=== PATIENT | male | born 1950 | race Caucasian/White ===

== ENCOUNTER 2016-09-18 08:11 | Outpatient (RCR) | payer BC ==
--- OUTSIDE RECORDS SUMMARY | 2016-09-11 10:42 | XMS REPORT | Continuity of Care Document ---
Author Author [facility] Organization [facility] Address Unknown Phone Unavailable Care Team Providers Care Management Associate Name Role Phone OLAMIDE SEVERINO MD PCP Insurance Providers Payer Name Policy Number Subscriber Name Relationship [facility] [id number] Annamaria Fajardo 20 Self / Same As Patient Advance Directives Directive Response Recorded Date/Time Advance Directives No 09/28/14 9:45am Health Care Power of Machinist Wood No 09/28/14 9:45am Resuscitation Status Full Code [...] F (97.6 - 99.5) Temperature (Calculated Celsius) 36.66395 degrees C (36.4 - 37.5) Pulse Rate (adult) 70 bpm (60 - 90) Respiratory Rate 18 bpm (12 - 24) O2 Sat by Pulse Oximetry 99 % (88 - 100) Blood Pressure 170/87 mm Hg Pain Pain Intensity 4 Height (Feet) 5 feet Height (Inches) 10 inches Height (Calculated Centimeters) 177.097984 cm Weight (Pounds) 215 pounds Weight (Calculated Kilograms) 97.826531 kilograms Calculated BMI 30.85 Results No known relevant diagnostic tests, laboratory data and/or discharge summary. Procedures No known history of procedures. Encounters Encounter Location Date/Time Registered Emergency Room Via [facility] 09/28/14 9:27am Recent Diagnosis
[2016-09-11 10:57] LABS: CALCIUM 9.7 MG/DL (8.5-10.1); CREATININE SERUM 1.32 MG/DL (0.60-1.30); POTASSIUM 5.4 MMOL/L (3.6-5.0)
[~2016-09-18 08:11] MED LIST: AMPI3VIA5 IV; ASCO500T20 PO; ASP325T PO; ATOR20TA66 PO; CHOL100011 PO; CINNAMON PO; ENAL10TA PO; ENAL20TA PO; FISH400C PO; GABA-488 PO; GABA100C PO; HYDR-1231 PO; INSU100I14 SC; INSU100I14 SQ; INSU200I4 SQ; METF1000 PO; METH1TAB59 PO; MICO90PO TOP; MULT-974 PO; OMEP40CA36 PO; SAWP1CAP PO; SODI473S7 TOP
[2016-09-18 08:38] LABS: CALCIUM 8.8 MG/DL (8.5-10.1); CREATININE SERUM 1.27 MG/DL (0.60-1.30); POTASSIUM 4.6 MMOL/L (3.6-5.0)
[2016-11-27] MEDS ORDERED: PREG75CA PO (09:42)
[2016-11-27] MEDS ORDERED: CINN500C2 PO (09:42)
[2016-11-27] MEDS ORDERED: ENAL20TA PO (09:42)
[2016-11-27] MEDS ORDERED: OMEP40CA36 PO (09:42)
[2016-11-27] MEDS ORDERED: INSU200I4 SQ (09:42)
[2016-11-27] MEDS ORDERED: DOXY100C2 PO (09:52)
[2016-11-28] MEDS ORDERED: ASPI-983 PO (08:22)
[2016-11-28] MEDS ORDERED: CLOP75TA28 PO (08:22)
== END 2016-12-10 | disposition home or self-care (01) ==
LOC: LAB 08:11
PROVIDERS: ATTEND Surgery
DX: E11.621 Type 2 diabetes mellitus with foot ulcer (principal); E11.42 Type 2 diabetes mellitus with diabetic polyneuropathy; L97.522 Non-pressure chronic ulcer of other part of left foot with fat layer exposed
CPT/HCPCS: 36415; 80048

== ENCOUNTER → 2016-10-09 | Outpatient (CLI) | payer BC ==
[~2016-10-09] MED LIST changes: +ASPI-983 PO; +CINN500C2 PO; +CLOP75TA28 PO; +DOXY100C2 PO; +PREG75CA PO
--- OUTSIDE RECORDS SUMMARY | 2016-10-09 09:47 | XMS REPORT | Continuity of Care Document ---
Author Author [facility] Organization [facility] Address Unknown Phone Unavailable Care Team Providers Care Overnight Stocker Name Role Phone OLAMIDE SEVERINO MD PCP Insurance Providers Payer Name Policy Number Subscriber Name Relationship [facility] [id number] Annamaria Fajardo 20 Self / Same As Patient Advance Directives Directive Response Recorded Date/Time Advance Directives No 09/28/14 9:45am Health Care Power of Claim Administrator No 09/28/14 9:45am Resuscitation Status Full Code [...] F (97.6 - 99.5) Temperature (Calculated Celsius) 36.60683 degrees C (36.4 - 37.5) Pulse Rate (adult) 70 bpm (60 - 90) Respiratory Rate 18 bpm (12 - 24) O2 Sat by Pulse Oximetry 99 % (88 - 100) Blood Pressure 170/87 mm Hg Pain Pain Intensity 4 Height (Feet) 5 feet Height (Inches) 10 inches Height (Calculated Centimeters) 177.886840 cm Weight (Pounds) 215 pounds Weight (Calculated Kilograms) 97.768378 kilograms Calculated BMI 30.85 Results No known relevant diagnostic tests, laboratory data and/or discharge summary. Procedures No known history of procedures. Encounters Encounter Location Date/Time Registered Emergency Room Via [facility] 09/28/14 9:27am Recent Diagnosis
--- NOTE | 2016-10-09 11:43 | Diagnostic Imaging Report ---
Three views of the left foot. INDICATION: Foot ulcer along the base of the first metatarsal. COMPARISON: 08/30/2016. FINDINGS: Again seen degenerative changes with joint space mild narrowing and osteophyte formation along the first metatarsophalangeal joint. There is also mild hallux valgus. There is no fracture, dislocation, or acute erosion identified. The plantar soft tissue ulcer along the base of the great toe is marked with no soft tissue air or overlying bony abnormality seen. IMPRESSION: Degenerative changes. Hallux valgus. Dictated by: Dictated on workstation # [id number]
== END ==
LOC: RAD 09:43
PROVIDERS: ATTEND Surgery
DX: E11.621 Type 2 diabetes mellitus with foot ulcer (principal); E11.42 Type 2 diabetes mellitus with diabetic polyneuropathy; L97.522 Non-pressure chronic ulcer of other part of left foot with fat layer exposed
CPT/HCPCS: 73630

== ENCOUNTER 2016-11-26 08:00 | Outpatient (RCR) | payer BC ==
--- OUTSIDE RECORDS SUMMARY | 2016-08-30 08:14 | XMS REPORT | Continuity of Care Document ---
Author Author [facility] Organization [facility] Address Unknown Phone Unavailable Care Team Providers Care Curb Attendant Name Role Phone OLAMIDE SEVERINO MD PCP Insurance Providers Payer Name Policy Number Subscriber Name Relationship [facility] [id number] Annamaria Fajardo 20 Self / Same As Patient Advance Directives Directive Response Recorded Date/Time Advance Directives No 09/28/14 9:45am Health Care Power of Cycle Manager No 09/28/14 9:45am Resuscitation Status Full Code 09/28/14 9:45am Problems Medical Problems Problem Onset Date Status Thigh contusion Unknown Active Crush injury Unknown Active Wrist contusion Unknown Active Medications Medication Dose Route Sig Days/Qty Instructions Order Date Discontinued Date Status Aspirin 325 Mg PO DAILY 04/20/14 Active Fish Oil/Borage/Flax/Om3,6,9#1 1 Cap PO DAILY 04/20/14 Active Sawpalmtofrtxt/Zinc Picolinate 1 Cap PO DAILY 04/20/14 09/28/14 Discontinued [Cinnamon 100MG] 100 Mg PO DAILY 04/20/14 Active Cholecalciferol 1,000 Unit PO DAILY 04/20/14 Active Ascorbic Acid 500 Mg PO DAILY 04/20/14 Active Multivitamin 1 Tab PO DAILY 04/20/14 Active Methyl-B12/L-Mefolate/B6 Phos 1 Tab PO DAILY 04/20/14 Active Enalapril Maleate 10 Mg PO DAILY 04/20/14 Active Metformin Hcl 1,000 Mg PO TWICE A DAY 04/20/14 Active Atorvastatin Calcium 20 Mg PO DAILY 04/20/14 Active Omeprazole 40 Mg PO MON, WED, FRI, SUN 04/20/14 Active Insulin Aspart 14 Units SC DAILY 04/20/14 Active Insulin Aspart 20 Units SQ DAILY @ 1800 04/20/14 Active Hydrocodone Bit/Acetaminophen 1-2 Tab PO EVERY 6 HOURS PRN PAIN 20 Qty 09/28/14 Active Social History Social History Problem Response Recorded Date/Time Alcohol Use Denies Use 09/28/2014 9:45am Recreational Drug Use No 09/28/2014 9:45am Recent Foreign Travel No 04/20/2014 11:06am Recent Infectious Disease Exposure No 04/20/2014 11:06am Hospitalization with Isolation Denies 04/22/2014 11:17am Sexually Transmitted Disease No 09/28/2014 9:45am HIV/AIDS No 09/28/2014 9:45am Smoking Status Former Smoker 09/28/2014 9:45am Query Response Start Date Stop Date Smoking Status Former Smoker Hospital Discharge Instructions No hospital discharge instructions. Plan of Care No plan of care. Functional Status No functional status results. Allergies, Adverse Reactions, Alerts Allergen Type Severity Reaction Status Last Updated No Known Drug Allergies Active 04/20/14 Immunizations Name Given Type Date of Pneumonia Vaccine 04/21/14 Historical Hepatitis A No Historical Hepatitis B No Historical Tetanus Booster (TDap) Less than 5yrs Historical Vital Signs Acute Vital Signs Vital Response Date/Time Temperature (Fahrenheit) 97.6 degrees F (97.6 - 99.5) Temperature (Calculated Celsius) 36.61697 degrees C (36.4 - 37.5) Pulse Rate (adult) 70 bpm (60 - 90) Respiratory Rate 18 bpm (12 - 24) O2 Sat by Pulse Oximetry 99 % (88 - 100) Blood Pressure 170/87 mm Hg Pain Pain Intensity 4 Height (Feet) 5 feet Height (Inches) 10 inches Height (Calculated Centimeters) 177.437438 cm Weight (Pounds) 215 pounds Weight (Calculated Kilograms) 97.408471 kilograms Calculated BMI 30.85 Results No known relevant diagnostic tests, laboratory data and/or discharge summary. Procedures No known history of procedures. Encounters Encounter Location Date/Time Registered Emergency Room Via [facility] 09/28/14 9:27am Recent Diagnosis
[~2016-11-26 08:00] MED LIST changes: -ASPI-983 PO; -CINN500C2 PO; -CLOP75TA28 PO; -DOXY100C2 PO; -PREG75CA PO
[2016-11-27] MEDS ORDERED: OMEP40CA36 PO (09:42)
[2016-11-27] MEDS ORDERED: INSU200I4 SQ (09:42)
[2016-11-27] MEDS ORDERED: PREG75CA PO (09:42)
[2016-11-27] MEDS ORDERED: CINN500C2 PO (09:42)
[2016-11-27] MEDS ORDERED: ENAL20TA PO (09:42)
[2016-11-27] MEDS ORDERED: DOXY100C2 PO (09:52)
[2016-11-28] MEDS ORDERED: CLOP75TA28 PO (08:22)
[2016-11-28] MEDS ORDERED: ASPI-983 PO (08:22)
== END 2016-11-28 | disposition home or self-care (01) ==
LOC: WOUNDCARE 08:00
PROVIDERS: ATTEND Surgery
DX: E11.621 Type 2 diabetes mellitus with foot ulcer (principal); E11.42 Type 2 diabetes mellitus with diabetic polyneuropathy; L97.524 Non-pressure chronic ulcer of other part of left foot with necrosis of bone
CPT/HCPCS: 11042; 11044; 15275; 29445; 82962; 87070; 87075; 87077; 87186; 87205; 99183

== ENCOUNTER 2016-11-27 07:33 | Day surgery (SDC) | payer BC ==
[2016-11-27] VITALS (7 sets, daily range): BP systolic 109–156; BP diastolic 63–84
[~2016-11-27] VITALS: Ht 177.8 cm; Wt 99.8 kg
--- OUTSIDE RECORDS SUMMARY | 2016-11-27 07:36 | XMS REPORT | Continuity of Care Document ---
Author Author [facility] Organization [facility] Address Unknown Phone Unavailable Care Team Providers Care Wheel Adjuster Name Role Phone OLAMIDE SEVERINO MD PCP Insurance Providers Payer Name Policy Number Subscriber Name Relationship [facility] [id number] Annamaria Fajardo 20 Self / Same As Patient Advance Directives Directive Response Recorded Date/Time Advance Directives No 09/28/14 9:45am Health Care Power of Drier And Pulverizer Tender No 09/28/14 9:45am Resuscitation Status Full Code [...] F (97.6 - 99.5) Temperature (Calculated Celsius) 36.95664 degrees C (36.4 - 37.5) Pulse Rate (adult) 70 bpm (60 - 90) Respiratory Rate 18 bpm (12 - 24) O2 Sat by Pulse Oximetry 99 % (88 - 100) Blood Pressure 170/87 mm Hg Pain Pain Intensity 4 Height (Feet) 5 feet Height (Inches) 10 inches Height (Calculated Centimeters) 177.924979 cm Weight (Pounds) 215 pounds Weight (Calculated Kilograms) 97.794689 kilograms Calculated BMI 30.85 Results No known relevant diagnostic tests, laboratory data and/or discharge summary. Procedures No known history of procedures. Encounters Encounter Location Date/Time Registered Emergency Room Via [facility] 09/28/14 9:27am Recent Diagnosis
--- OUTSIDE RECORDS SUMMARY | 2016-11-27 07:37 | XMS REPORT | Continuity of Care Document ---
Author Author [facility] Organization [facility] Address Unknown Phone Unavailable Care Team Providers Care Senior Software Analyst Name Role Phone OLAMIDE SEVERINO MD PCP Insurance Providers Payer Name Policy Number Subscriber Name Relationship [facility] [id number] Annamaria Fajardo 20 Self / Same As Patient Advance Directives Directive Response Recorded Date/Time Advance Directives No 09/28/14 9:45am Health Care Power of Sports Attorney No 09/28/14 9:45am Resuscitation Status Full Code [...] F (97.6 - 99.5) Temperature (Calculated Celsius) 36.11096 degrees C (36.4 - 37.5) Pulse Rate (adult) 70 bpm (60 - 90) Respiratory Rate 18 bpm (12 - 24) O2 Sat by Pulse Oximetry 99 % (88 - 100) Blood Pressure 170/87 mm Hg Pain Pain Intensity 4 Height (Feet) 5 feet Height (Inches) 10 inches Height (Calculated Centimeters) 177.962124 cm Weight (Pounds) 215 pounds Weight (Calculated Kilograms) 97.383830 kilograms Calculated BMI 30.85 Results No known relevant diagnostic tests, laboratory data and/or discharge summary. Procedures No known history of procedures. Encounters Encounter Location Date/Time Registered Emergency Room Via [facility] 09/28/14 9:27am Recent Diagnosis
[2016-11-27] MEDS ORDERED: LIDOCAINE 1% INJ 20 ML (XYLOCAINE) VIAL ONE (07:42)
[2016-11-27] MEDS ORDERED: HEParin (CATH LAB) 2,000 ML IV ONE (07:42)
[2016-11-27] MEDS ORDERED: NS IV 1000 ML 1,000 ML ONE (07:42)
[2016-11-27] MEDS ORDERED: NS IV 1000 ML 1,000 ML IV SCH ×2 (07:57→08:15)
--- NOTE | 2016-11-27 08:25 | Diagnostic Imaging Report ---
Portable upright radiograph of the chest. INDICATION: Open wound in the leg. Hypertension. Peripheral artery disease. FINDINGS: The lungs are clear. The heart size is normal. No effusion or pneumothorax. Mediastinum and amador appear unremarkable. Cervical spine fusion hardware is seen. IMPRESSION: No acute process. Dictated by: Dictated on workstation # [id number]
[2016-11-27 08:28] LABS: MEAN PLATELET VOLUME 10.3 FL (7.4-10.4); RED BLOOD COUNT 4.49 10^6/uL (4.35-5.85); RED CELL DISTRIBUTION WIDTH 14.1 % (10.0-14.5); WHITE BLOOD COUNT 12.3 10^3/uL (4.3-11.0)
[2016-11-27 08:41] LABS: PROTHROMBIN TIME PATIENT 13.1 SEC (12.2-14.7)
[2016-11-27 08:54] LABS: ALBUMIN 3.7 G/DL (3.2-4.5); BILIRUBIN,TOTAL 0.3 MG/DL (0.1-1.0); CALCIUM 9.4 MG/DL (8.5-10.1); CREATININE SERUM 1.26 MG/DL (0.60-1.30); POTASSIUM 4.8 MMOL/L (3.6-5.0); TOTAL PROTEIN 7.2 G/DL (6.4-8.2)
[2016-11-27] MEDS ORDERED: INSU200I4 SQ (09:42)
[2016-11-27] MEDS ORDERED: PREG75CA PO (09:42)
[2016-11-27] MEDS ORDERED: ENAL20TA PO (09:42)
[2016-11-27] MEDS ORDERED: OMEP40CA36 PO (09:42)
[2016-11-27] MEDS ORDERED: CINN500C2 PO (09:42)
[2016-11-27] MEDS ORDERED: DOXY100C2 PO (09:52)
--- NOTE | 2016-11-27 10:46 | Cardiac Procedure Note-CS/ASA ---
Pre-Procedure Note Pre-Op Procedure Note H&P Reviewed The H&P was reviewed, patient examined and no changes noted. Date H&P Reviewed: Nov 27, 2016 Time H&P Reviewed: 10:46 Conscious Sedation Pre-Proced Time Reviewed: 10:46 ASA Class: 3 Airway Mallampati Classification: ([place] appropriate class) I. II. III, IV Lungs Heart ASA score ASA 1: a normal healthy patient ASA 2: a patient with a mild systemic disease (mid diabetes, controlled hypertension, obesity x ASA 3: a patient with a severe systemic disease that limits activity (angina , COPD, prior Myocardial infarction) ASA 4: a patient with an incapacitating disease that is a constant threat to life (CHF, renal failure) ASA 5: a moribund patient not expected to survive 24 hrs. (ruptured aneurysm) ASA 6: a declared brain patient whose organs are being harvested. For emergent operations, add the letter E after the classification Grade 3 Sedation Plan: Analgesia, Amnesia, Plan communicated to team members, Discussed options with patient/fam, Discussed risks with patient/fam Note The patient is an appropriate candidate to undergo the planned procedure, sedation, and anesthesia. The patient immediately re-assessed prior to indication. BRITTNEY FERRERA MD Nov 27, 2016 10:46
[2016-11-27] MEDS ORDERED: MIDAZOLAM 5 MG/5 ML (VERSED) VIAL ONE (10:48)
[2016-11-27] MEDS ORDERED: fentaNYL INJECTION 100 MCG/2 ML AMP ONE (10:48)
[2016-11-27] MEDS ORDERED: HEParin 1000 UNIT/ML (10ML VIAL) FOR BOLUS ONE (11:14)
[2016-11-27] MEDS ORDERED: NITROGLYCERIN DRIP 25 MG/D5W 250 ML IV ONE (11:39)
[2016-11-27] MEDS ORDERED: ASPIRIN 325 MG (5 GR) TABLET ONE (12:11)
[2016-11-27] MEDS ORDERED: CLOPIDOGREL 300 MG (PLAVIX) TABLET PO ONE (12:11)
[2016-11-27] MEDS ORDERED: PATIENT MAY USE OWN MEDS, ALL PO SCH (12:15)
[2016-11-27] MEDS: NS IV 1000 ML 1,000 ML IV SCH ×2 (12:30→23:18)
[2016-11-27] MEDS ORDERED: DOXYCYCLINE 100 MG (VIBRAMYCIN) TABLET PO SCH (21:00)
[2016-11-27] MEDS ORDERED: PREGABALIN 75 MG (LYRICA) CAP PO SCH (21:00)
[2016-11-27] MEDS ORDERED: NON-FORMULARY MEDICATION 1 EA EA (Doxycycline Hyclate 100 MG) PO SCH (21:00)
[2016-11-28] VITALS: BP 148/76
[2016-11-28 04:16] VITALS: BP 164/80
[2016-11-28 04:43] LABS: MEAN PLATELET VOLUME 10.7 FL (7.4-10.4); RED BLOOD COUNT 4.36 10^6/uL (4.35-5.85); RED CELL DISTRIBUTION WIDTH 14.3 % (10.0-14.5); WHITE BLOOD COUNT 8.6 10^3/uL (4.3-11.0)
[2016-11-28 05:14] LABS: ANION GAP 9 MMOL/L (5-14); BLOOD UREA NITROGEN 22 MG/DL (7-18); BUN/CREATININE RATIO 19; CALCIUM 9.3 MG/DL (8.5-10.1); CARBON DIOXIDE 22 MMOL/L (21-32); CHLORIDE 109 MMOL/L (98-107); CREATININE SERUM 1.17 MG/DL (0.60-1.30); GFR ESTIMATED > 60; GLUCOSE 142 MG/DL (70-105); POTASSIUM 4.6 MMOL/L (3.6-5.0); SODIUM 140 MMOL/L (135-145)
[2016-11-28 05:42] VITALS: BP 134/52
[2016-11-28] MEDS ORDERED: PANTOPRAZOLE 40 MG (PROTONIX) TAB PO SCH (07:00)
[2016-11-28 08:00] VITALS: BP 144/75
--- NOTE | 2016-11-28 08:00 | DISCHARGE SUMMARY ---
PROCEDURE PHYSICIAN: BRITTNEY FERRERA DATE OF PROCEDURE: 11/27/2016 PERIPHERAL ANGIOGRAM REFERRING PHYSICIAN: Dr. Lane BRIEF HISTORY: Mr. Fajardo is a 66-year-old gentleman with nonhealing foot ulcer on the left side. Abnormal SHIRLEY, had difference of 20 mmHg blood pressure in the arms. We were suspecting carotid stenosis at the origin of the carotid artery, in addition to peripheral arterial disease. PROCEDURE NOTE: After explaining the procedure to the patient, all pros and cons were explained. All questions were answered. The patient signed a consent, then he was placed on the cardiac catheterization laboratory. The right groin was prepped in a sterile fashion. Local anesthesia applied. A 6-Micronesian sheath was placed in the right femoral artery. Runoff of the right lower extremity was done through the sheath, then I advanced a pigtail catheter to the abdominal aorta. Abdominal aortogram was done. The patient was given 3000 units of heparin, then followed by another 3000 units of heparin. The Storq wire was advanced in the left lower extremity. Then straight catheter was placed in the common femoral artery, runoff was done. Then I advanced a catheter to the right superficial femoral artery and 3 separate angiograms were done to the trifurcation and popliteal artery, then to the mid leg then to the foot. At that point, patient appeared to have severe stenosis at multiple segment of the anterior tibial artery. I gave additional 3000 units of heparin. Then I advanced a Command wire 300 cm down in the anterior tibial artery. I proceeded with Colwell balloon 2.5 x 100, inflated to its nominal size, then I used Colwell larger balloon 3.0 x 100 inflated up to 10 atmosphere at multiple inflations, then angiogram was done. I exchanged the catheter. I used mini support catheter, advanced it to the anterior tibial artery, placed in the anterior tibial artery. The wire was removed. I gave nitroglycerin in the artery. Then I proceeded with angiogram, through direct injection in the anterior tibial artery. The catheter was removed. Runoff of the left lower extremity was done through the sheath. I used a 55 cm 6-Micronesian sheath which showed excellent flow. There was a small dissection at the mid anterior tibial artery. The sheath was pulled to the abdominal aorta, then I exchanged into short 6-Micronesian sheath, advanced the pigtail back to the aortic arch and aortic arch angiogram was done. At the end of the procedure, sheath was removed. Mynx device deployed. Hemostasis achieved. Total contrast used is 116 mL. FINDINGS: 1. AORTIC ARCH ANGIOGRAM: Aortic arch angiogram was done in the left anterior oblique position showing no dissection or aneurysm. Origin of the innominate artery, carotid artery and left subclavian appeared normal. 2. RIGHT LOWER EXTREMITY RUNOFF: Right lower extremity runoff was done through the sheath showing slow flow down to the trifurcation. Small vessel disease below the trifurcation. 3. LEFT LOWER EXTREMITY RUNOFF: Left lower extremity runoff done at multiple injections showing moderate disease in the posterior tibial artery, severe disease with subtotal occlusion at 2 segments of the anterior tibial artery. Successful balloon angioplasty using Colwell 2.5 x 100 then 3.0 x 100 with excellent results. Small dissection in the mid anterior tibial artery not flow limiting. Mild disease in the left SFA. 4. ABDOMINAL AORTOGRAM: Abdominal aortogram was done in AP position showing normal abdominal aorta with normal bifurcation. CONCLUSION: 1. Severe stenosis at 2 segments of the anterior tibial artery of the left lower extremity. Successful balloon angioplasty with excellent results with excellent flow down to the foot. 2. Moderate disease in the posterior tibial artery on the left side. Mild disease in the SFA. 3. Mild disease in the right SFA with small vessel disease below the knee. 4. Normal aortic arch and great neck vessels. 5. Normal abdominal aorta. DISCUSSION AND RECOMMENDATION: I will maximize medical therapy. Continue to monitor at this time. FINAL DIAGNOSES: 1. Nonhealing foot ulcer. 2. Hypertension. 3. Peripheral arterial disease. 4. Hyperlipidemia. 5. Diabetes mellitus. Job ID: [id number] Dictated Date: 11/27/2016 12:30:23 Ore Miner Blasting Date: 11/28/2016 07:58:07/noel
[2016-11-28] MEDS: NS IV 1000 ML 1,000 ML IV SCH (08:09)
[2016-11-28] MEDS ORDERED: CLOP75TA28 PO (08:22)
[2016-11-28] MEDS ORDERED: ASPI-983 PO (08:22)
--- NOTE | 2016-11-28 08:23 | Discharge Inst-Post CATH ---
Discharge Inst-CATH Post Cardiac Cath D/C Inst Follow Up/Plan Hold metformin for [address] Ortiz's office in 2-4 weeks CARDIAC CATH DISCHARGE INSTRUCTIONS *Hold Metformin for 48 hours post heart cath. ACTIVITY * Go Home directly and rest. * Limit activity of the leg (or wrist if it was used) for 7 days including aerobics, swimming, jogging, bicycling, etc. * Restrict stair-climbing for 7 days if possible, if not, climb up with your non -cath leg, then bring together on the same step. * Avoid lifting, pushing, pulling or excessive movement of the affected extremity for 7 days. * Customary sexual activity may be resumed after 2 days-use caution not to use a position that strains or causes pain to the affected extremity. * No driving for 24 hours. * NO SMOKING. * Avoid straining for bowel movements for 7 days. * Gentle walking on level ground is allowed. * Returning to work will depend on the type of procedure and the results. Your doctor will discuss this with you. CALL YOUR DOCTOR FOR ANY OF THE FOLLOWING: *If bleeding from the puncture site occurs- Apply gentle pressure to site with clean cloth and call your doctor or EMS. * If a knot or lump forms under the skin, increases in size, or causes pain. * If bruising appears to be worsening or moving further down your leg instead of disappearing. * Temperature above 101 F. CARE OF YOUR GROIN INCISION; * Bruising or purple discoloration of the skin near the puncture site is common. * You may shower only, no bathtub bathing for 5 days. Be careful to avoid slipping as your leg may feel stiff. * If a closure device was used on your femoral artery, please see the attached guide regarding care of the device and your leg. * REMOVE the dressing from your groin the next day after your procedure in the shower. CARE OF YOUR WRIST INCISION; * Bruising or purple discoloration of the skin near the puncture site is common. * You may shower. * DO NOT submerge wrist. * Remove dressing in 24 hours. BRITTNEY ORTIZ MD Nov 28, 2016 08:23
--- NOTE | 2016-11-28 08:24 | Cardiology Progress Note ---
Subjective Subjective/Events-last exam patient is laying down in bed, groin is healing well. Review of Systems General: No Chills, No Night Sweats, No Fatigue, No Malaise, No Appetite, No Other HEENT: No Head Aches, No Visual Changes, No Eye Pain, No Ear Pain, No Dysphasia , No Sinus Congestion, No Post Nasal Drip, No Sore Throat, No Other Pulmonary: No Dyspnea, No Cough, No Pleuritic Chest Pain, No Other Cardiovascular: No: Chest Pain, Edema, Lt Headedness, Orthopnea, Other, Palpitations, Paroxysmal Noc. Dyspnea Objective-Cardiology Exam Last Set of Vital Signs Vital Signs 11/28/16 11/28/16 05:42 07:00 Temp 97.2 Pulse 61 Resp 16 B/P 134/52 Pulse Ox 96 O2 Delivery Room Air Capillary Refill : Less Than 3 Seconds General: Alert, Oriented X3, Cooperative HEENT: Atraumatic, PERRLA Neck: Supple, No JVD, No Thyromegaly Lungs: Clear to Auscultation, Normal Air Movement Heart: Regular Rate, Normal S1, Normal S2, No Murmurs Abdomen: Normal Bowel Sounds, Soft, No Tenderness, No Hepatosplenomegaly, No Masses Extremities: No Clubbing, No Cyanosis, No Edema, Normal Pulses, No Tenderness/ Swelling Skin: No Rashes, No Breakdown, No Significant Lesion Neuro: Normal Gait, Normal Speech, Strength at 5/5 X4 Ext, Normal Tone, Sensation Intact Psych/Mental Status: Mental Status NL, Mood NL Results Lab Laboratory Tests 11/28/16 03:33 A/P-Cardiology Admission Diagnosis nonhealing foot ulcer Peripheral arterial disease Hypertension Hyperlipidemia Diabetes mellitus Assessment/Plan peripheral arterial disease, nonhealing foot ulcer, status post angioplasty to the anterior tibial artery with excellent results. Started on aspirin and Plavix. Continue to monitor. Hypertension, continue current medication monitor Hyperlipidemia, continue to monitor lipids, continue current medication Diabetes mellitus, educated on diabetic control. Obesity. BRITTNEY FERRERA MD Nov 28, 2016 08:24
[2016-11-28] MEDS ORDERED: ATORVASTATIN 20 MG (LIPITOR) TABLET PO SCH (09:00)
[2016-11-28] MEDS ORDERED: CLOPIDOGREL 75 MG (PLAVIX) TABLET PO SCH (09:00)
[2016-11-28] MEDS ORDERED: ENALAPRIL 10 MG (VASOTEC) TAB PO SCH (09:00)
[2016-11-28] MEDS ORDERED: NON-FORMULARY MEDICATION 1 EA EA (Insulin Degludec (Tresiba Flextouch U-200) 50 UNITS) SQ SCH (09:00)
[2016-11-28] MEDS ORDERED: ASPIRIN E.C. 81 MG (ECOTRIN) TAB PO SCH (09:00)
[2016-11-28] MEDS ORDERED: NON-FORMULARY MEDICATION 1 EA EA (Omeprazole 40 MG) PO SCH (09:00)
[2016-11-28] MEDS ORDERED: NON-FORMULARY MEDICATION 1 EA EA (Enalapril Maleate 20 MG) PO SCH (09:00)
[2016-11-28 09:55] VITALS: BP 144/75
== END 2016-11-28 10:05 | disposition home or self-care (01) ==
LOC: CATH 07:33 → ICU 12:30 → CATH 11-28 10:05
PROVIDERS: ATTEND Internal Medicine Cardiovascular Disease
DX: L97.529 Non-pressure chronic ulcer of other part of left foot with unspecified severity (principal); E11.621 Type 2 diabetes mellitus with foot ulcer; I10 Essential (primary) hypertension; E78.5 Hyperlipidemia, unspecified; K21.9 Gastro-esophageal reflux disease without esophagitis; E66.9 Obesity, unspecified; Z79.899 Other long term (current) drug therapy; Z79.84 Long term (current) use of oral hypoglycemic drugs; Z68.31 Body mass index [BMI] 31.0-31.9, adult
CPT/HCPCS: 36221; 36247; 36415; 37228; 71010; 75625; 75716; 75774; 80048; 80053; 80061; 82962; 85027; 85347; 85610; 85730; 87081

== ENCOUNTER → 2016-12-24 | Outpatient (CLI) | payer BC ==
[~2016-12-24] MED LIST changes: +ASPI-983 PO; +CINN500C2 PO; +CLOP75TA28 PO; +DOXY100C2 PO; +PREG75CA PO
== END ==
LOC: LAB 06:58
PROVIDERS: ATTEND Surgery
DX: E11.621 Type 2 diabetes mellitus with foot ulcer (principal); E11.42 Type 2 diabetes mellitus with diabetic polyneuropathy; L97.522 Non-pressure chronic ulcer of other part of left foot with fat layer exposed
CPT/HCPCS: 36415; 83036

== ENCOUNTER 2017-01-15 12:39 | Outpatient (RCR) | payer BC ==
--- OUTSIDE RECORDS SUMMARY | 2016-11-29 08:05 | XMS REPORT | Continuity of Care Document ---
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 Name Role Phone OLAMIDE SEVERINO MD PCP Insurance Providers Payer Name Policy Number Subscriber Name Relationship [facility] [id number] Annamaria Fajardo 20 Self / Same As Patient Advance Directives Directive Response Recorded Date/Time Advance Directives No 11/27/16 8:24am Health Care Power of Circus Agent No 11/27/16 8:24am Resuscitation Status Full Code 11/27/16 8:24am Problems Active Problems Medical Problem Onset Date Status Cellulitis Unknown Acute Crush injury Unknown Acute Diabetic ulcer of left foot Unknown Acute Thigh contusion Unknown Acute Thigh contusion Unknown Acute Wrist contusion Unknown Acute Medications Current Home Medications Medication Dose Units Route Directions Days/Qty Instructions Start Date Ascorbic Acid 500 Mg 500 Mg Oral Daily 04/20/14 Atorvastatin Calcium 20 Mg 20 Mg Oral Daily 04/20/14 Cinnamon Bark 500 Mg 500 Mg Oral Daily 11/27/16 Enalapril Maleate 20 Mg 20 Mg Oral Daily 11/27/16 Insulin Degludec 200 Unit/1 Ml 50 Units Sub-Q Daily 11/27/16 Omeprazole 40 Mg 40 Mg Oral Daily 11/27/16 Pregabalin 75 Mg 75 Mg Oral Bedtime 11/27/16 Doxycycline Hyclate 100 Mg 100 Mg Oral Twice A Day 14 Days FILLED #28 FOR A 14 DAY THERAPY 11/27/16 Clopidogrel Bisulfate 75 Mg 75 Mg Oral Daily 30 11/28/16 Aspirin 81 Mg 81 Mg Oral Daily 100 11/28/16 Past Home Medications Medication Directions Ordered Status Aspirin 325 Mg Tab, 325 Mg Oral Daily 04/20/14 Discontinued Fish Oil/Borage/Flax/Om3,6,9#1 1 Each Capsule, 1 Cap Oral Daily 04/20/14 Discontinued Sawpalmtofrtxt/Zinc Picolinate 1 Each Capsule, 1 Cap Oral Daily 04/20/14 Discontinued [Cinnamon 100MG] , 100 Mg Oral Daily 04/20/14 Discontinued Cholecalciferol 1,000 Unit Capsule, 1000 Unit Oral Daily 04/20/14 Discontinued Multivitamin 1 Each Tablet, 1 Tab Oral Daily 04/20/14 Discontinued Methyl-B12/L-Mefolate/B6 Phos 1 Each Tablet, 1 Tab Oral Daily 04/20/14 Discontinued Enalapril Maleate 10 Mg Tablet, 10 Mg Oral Daily 04/20/14 Discontinued Metformin Hcl 1,000 Mg Tablet, 1000 Mg Oral Twice A Day 04/20/14 Discontinued Omeprazole 40 Mg Capsule., 40 Mg Oral Mon, Fri, Fri, Sun 04/20/14 Discontinued Insulin Aspart 100 Unit/1 Ml Insuln.pen, 14 Units Subcutaneously Daily Discontinued Insulin Aspart 100 Unit/1 Ml Insuln.pen, 20 Units Sub-Q Daily @ 1800 Discontinued Hydrocodone Bit/Acetaminophen 1 Tab Tablet, 1-2 Tab Oral Every 6 Hours as needed for Pain 09/28/14 Discontinued Omeprazole 40 Mg Capsule.dr, 40 Mg Oral Daily 01/14/16 Discontinued Insulin Degludec 200 Unit/1 Ml Insuln.pen, 50 Unit Sub-Q Daily 01/14/16 Discontinued Gabapentin 100 Mg Capsule, 100 Mg Oral Twice A Day 01/14/16 Discontinued Enalapril Maleate 20 Mg Tablet, 20 Mg Oral Daily 01/14/16 Discontinued Gabapentin 300 Mg Capsule, 300 Mg Oral Twice A Day 01/15/16 Discontinued Ampicillin Sodium/Sulbactam Na 3 Gm Vial, 3 Gm Intraven Every 8HRS 01/18/16 Discontinued Miconazole Nitrate 90 Gm Powder, 0 Gm Topically Daily And Prn 01/18/16 Discontinued Social History Social History Problem Response Recorded Date/Time Alcohol Use Denies Use 01/14/2016 10:50am Recreational Drug Use No 01/14/2016 10:50am Recent Foreign Travel No 04/20/2014 11:06am Recent Infectious Disease Exposure No 04/20/2014 11:06am Hospitalization with Isolation Denies 04/22/2014 11:17am Sexually Transmitted Disease No 01/14/2016 10:50am HIV/AIDS No 01/14/2016 10:50am Smoking Status Never a Smoker 11/27/2016 8:27am Do you dip or chew tobacco? No 01/14/2016 7:25am Sexually Transmitted Disease No 01/14/2016 10:50am Hospitalization with Isolation Denies 04/22/2014 11:17am Query Response Start Date Stop Date Smoking Status Never a Smoker Hospital Discharge Instructions Patient Instructions Physician Instructions Follow Up/Plan Hold metformin for [address] Ortiz's office in 2-4 weeks CARDIAC CATH DISCHARGE INSTRUCTIONS *Hold Metformin for 48 hours post heart cath. ACTIVITY * Go Home directly and rest. * Limit activity of the leg (or wrist if it was used) for 7 days including aerobics, swimming, jogging, bicycling, etc. * Restrict stair-climbing for 7 days if possible, if not, climb up with your non-cath leg, then bring together on the same step. * Avoid lifting, pushing, pulling or excessive movement of the affected extremity for 7 days. * Customary sexual activity may be resumed after 2 days-use caution not to use a position that strains or causes pain to the affected extremity. * No driving for 24 hours. * NO SMOKING. * Avoid straining for bowel movements for 7 days. * Gentle walking on level ground is allowed. * Returning to work will depend on the type of procedure and the results. Your doctor will discuss this with you. CALL YOUR DOCTOR FOR ANY OF THE FOLLOWING: *If bleeding from the puncture site occurs- Apply gentle pressure to site with clean cloth and call your doctor or EMS. * If a knot or lump forms under the skin, increases in size, or causes pain. * If bruising appears to be worsening or moving further down your leg instead of disappearing. * Temperature above 101 F. CARE OF YOUR GROIN INCISION; * Bruising or purple discoloration of the skin near the puncture site is common. * You may shower only, no bathtub bathing for 5 days. Be careful to avoid slipping as your leg may feel stiff. * If a closure device was used on your femoral artery, please see the attached guide regarding care of the device and your leg. * REMOVE the dressing from your groin the next day after your procedure in the shower. CARE OF YOUR WRIST INCISION; * Bruising or purple discoloration of the skin near the puncture site is common. * You may shower. * DO NOT submerge wrist. * Remove dressing in 24 hours. Plan of Care Discharge Date 11/28/16 10:05am Instructions/Education Provided CARDIAC CATH DISCHARGE INSTRUC Prescriptions See Medication Section Functional Status Query Response Date Recorded Patient Orientation Person Place Time Situation November 28, 2016 10:27am Allergies, Adverse Reactions, Alerts No known allergies. Immunizations No immunization records. Vital Signs Acute Vital Signs Vital Response Date/Time Temperature (Fahrenheit) 97.0 degrees F (97.6 - 99.5) 11/28/2016 9:55am Temperature (Calculated Celsius) 36.61641 degrees C (36.4 - 37.5) 11/28/2016 8:00am Temperature Source Tympanic 11/28/2016 9:55am Pulse Rate (adult) 60 bpm (60 - 90) 11/28/2016 9:55am Respiratory Rate 20 bpm (12 - 24) 11/28/2016 9:55am O2 Sat by Pulse Oximetry 100 % (88 - 100) 11/28/2016 9:55am Blood Pressure 144/75 mm Hg 11/28/2016 9:55am Blood Pressure Mean 98 mm Hg 11/28/2016 8:00am Pain Numeric Pain Scale 0-No Pain 11/28/2016 8:00am Height (Feet) 5 feet 11/27/2016 8:24am Height (Inches) 10.00 inches 11/27/2016 8:24am Height (Calculated Centimeters) 177.419512 cm 11/27/2016 8:24am Weight (Pounds) 220 pounds 11/27/2016 8:24am Weight (Ounces) 0.0 oz 11/27/2016 8:24am Weight (Calculated Grams) 58173.32 gm 11/27/2016 8:24am Weight (Calculated Kilograms) 99.450107 kilograms 11/27/2016 8:24am Calculated BMI 31.6 11/27/2016 8:24am Capillary Refill Capillary Refill Less Than 3 Seconds 11/27/2016 8:40pm Results Laboratory Results Test Name Result Units Flags Reference Collection Date/Time Result Date/ Time Comments Glucometer 131 MG/DL H 70-110 11/26/2016 10:11am 11/26/2016 10:19am Pending Laboratory Results Test Name Collection Date/Time Microbiology Results Procedure Source Result Collection Date/Time Result Date/Time Anaerobic Culture Tissue, Metatarsal, Left ANAEROBIC GRAM POS COCCI 2015 8:55am 09/03/2016 10:56am PREVOTELLA SPECIES 08/30/2016 8:55am 09/03/2016 10:56am Wound Culture Tissue, Metatarsal, Left ENTEROCOCCUS FAECALIS 08/30/2016 8: 55am 09/01/2016 9:24am ESCHERICHIA COLI 08/30/2016 8:55am 09/01/2016 9:24am STREP, BETA HEMOLYTIC GROUP B 08/30/2016 8:55am 09/01/2016 9:24am Anaerobic Culture Tissue, Metatarsal, Left No anaerobes isolated 10/02/2016 9:48am 10/04/2016 11:28am Wound Culture Tissue, Metatarsal, Left ACINETOBACTER BAUMANII 10/02/2016 9: 48am 10/06/2016 12:37pm CORYNEBACTERIUM SPECIES 10/02/2016 9:48am 10/06/2016 12:37pm ENTEROCOCCUS FAECALIS 10/02/2016 9:48am 10/06/2016 12:37pm STAPH, COAG NEG (ASSOCIATE DEAN) 10/02/2016 9:48am 10/06/2016 12:37pm Anaerobic Culture Bone, Metatarsal, Left No anaerobes isolated 10/23/2016 9: 46am 10/25/2016 8:11am Wound Culture Bone, Metatarsal, Left STAPH, COAG NEG (ASSOCIATE DEAN) 10/23/2016 9: 46am 10/27/2016 11:21am Pending Microbiology Results Procedure Source Collection Date/Time Procedures No known history of procedures. Encounters Encounter Location Arrival/Admit Date Discharge/Depart Date Attending Provider Departed [facility] 11/27/16 7:33am 10:05am BRITTNEY ORTIZ MD Discharged Recurring [facility] 11/26/16 8:00am 11:59pm TANIA SRINIVASAN MD
== END 2017-01-15 16:00 | disposition home or self-care (01) ==
LOC: WOUNDCARE 12:39
PROVIDERS: ATTEND Surgery
DX: E11.621 Type 2 diabetes mellitus with foot ulcer (principal); E11.42 Type 2 diabetes mellitus with diabetic polyneuropathy; L97.522 Non-pressure chronic ulcer of other part of left foot with fat layer exposed
CPT/HCPCS: 11042; 29445; 82962; 99183; 99212

== ENCOUNTER 2017-06-07 08:27 | Inpatient (IN) | payer MEDICARE, BC ==
[~2017-06-07] VITALS: Ht 177.8 cm; Wt 97.5 kg
--- NOTE | 2017-06-07 08:54 | ED Lower Extremity ---
General Stated Complaint: INFECTION IN FOOT Source: patient History of Present Illness Time seen by provider: 08:40 Initial Comments PT ARRIVES VIA POV FROM HOME C/O PAIN, REDNESS, SWELLING TO LEFT FOOT PT STATES HIS LEFT FOOT "HAS BEEN BOTHERING HIM" FOR THE LAST 3 DAYS PT NOTICED A SORE BETWEEN HIS LEFT FIRST AND SECOND TOES THIS AM AND NOTICED REDNESS AND SWELLING TO FOOT THIS MORNING. DID NOT NOTE ANY DRAINAGE FROM AREA PT HAS "BEEN SICK IN BED" FOR 3 DAYS--HAS HAD SUBJECTIVE FEVER FOR THE LAST 3 DAYS--HAD TYLENOL X 1 DOSE YESTERDAY. PT WITH PERIPHERAL NEUROPATHY AND PERIPHERAL VASCULAR DISEASE --HAD CHRONIC WOUND TO BOTTOM OF LEFT FOOT--AND WAS SEEING DR. SRINIVASAN--THAT WOUND HAS HEALED AND HAS NOT SEEN DR. SRINIVASAN SINCE DECEMBER OF THIS YEAR PT HAD ANGIOPLASTY TO LEFT LEG 11/27/16 , AND HEALING IMPROVED AFTER THAT. PCP:DR. SEVERINO SALES ACCOUNT REPRESENTATIVE: DR. FERRERA WOUND CARE: DR. SRINIVASAN Allergies and Home Medications Allergies Coded Allergies: No Known Drug Allergies (Unverified , 04/20/14) Home Medications Ascorbic Acid 500 Mg Tablet, 500 MG PO DAILY, (Reported) Aspirin 81 Mg Tablet., 81 MG PO DAILY, #100 Ref 4 Prescribed by: BRITTNEY FERRERA on 11/28/16 08 Atorvastatin Calcium 20 Mg Tablet, 20 MG PO DAILY, (Reported) Cinnamon Bark 500 Mg Capsule, 500 MG PO DAILY, (Reported) Clopidogrel Bisulfate 75 Mg Tablet, 75 MG PO DAILY, #30 Ref 4 Prescribed by: BRITTNEY FERRERA on 11/28/16 08 Doxycycline Hyclate 100 Mg Capsule, 100 MG PO BID for 14 Days, (Reported) FILLED 11/20/16 #28 FOR A 14 DAY THERAPY Enalapril Maleate 20 Mg Tablet, 20 MG PO DAILY, (Reported) Insulin Degludec 200 Unit/1 Ml Insuln.pen, 50 UNITS SQ DAILY, (Reported) Omeprazole 40 Mg Capsule., 40 MG PO DAILY, (Reported) Pregabalin 75 Mg Capsule, 75 MG PO HS, (Reported) Constitutional: see HPI, fever, malaise EENTM: no symptoms reported Respiratory: no symptoms reported Cardiovascular: see HPI Genitourinary: no symptoms reported Musculoskeletal: see HPI Skin: see HPI Psychiatric/Neurological: See HPI Past Jdotypy-Plnxqm-[id number] Hx Patient Social History Smoking Status: Former Smoker (4 PPD, QUIT 1979) Recent Foreign Travel: No Contact w/Someone Who Travel: No Immunizations Up To Date Tetanus Booster (TDap): Less than 5yrs PED Vaccines UTD: No Date of Pneumonia Vaccine: Apr 21, 2014 Surgeries History of Surgeries: Yes (ANGIOPLASTY LEFT LEG 11/27/16) Surgeries: Adenoidectomy, Appendectomy, Tonsillectomy, Vascular Surgery Respiratory History of Respiratory Disorde: No Cardiovascular History of Cardiac Disorders: Yes (ANGIOPLASTY LEFT LEG) Cardiac Disorders: High Cholesterol, Hypertension, Peripheral Vascular Neurological History of Neurological Disord: Yes Neurological Disorders: Neuropathy Reproductive System Sexually Transmitted Disease: No HIV/AIDS: No Genitourinary History of Genitourinary Disor: No Gastrointestinal History of Gastrointestinal Di: No Musculoskeletal History of Musculoskeletal Dis: Yes Musculoskeletal Disorders: Arthritis Endocrine History of Endocrine Disorders: Yes Endocrine Disorders: Diabetes, Insulin dep HEENT History of HEENT Disorders: Yes HEENT Disorders: Cataract Loss of Vision: Denies Hearing Impairment: Denies Cancer History of Cancer: No Psychosocial History of Psychiatric Problem: No Integumentary History of Skin or Integumenta: Yes (DIABETIC FOOT ULCERS WITH CELLULITIS) Blood Transfusions History of Blood Disorders: No Adverse Reaction to a Blood Tr: No Family Medical History Family Medial History: Cataract 19 MOTHER Family history: Alzheimer's disease 19 MOTHER Family history: Arthritis 19 FATHER 19 MOTHER G8 BROTHER G8 BROTHER G8 SISTER G8 SISTER Family history: Diabetes mellitus 19 FATHER 19 MOTHER G8 BROTHER G8 BROTHER G8 SISTER G8 SISTER No Family History of: Abdominal aortic aneurysm Liberty's disease Alcoholism Aphasia Cancer Cancer of colon Chest pain Congenital heart disease Congestive heart failure Cystic fibrosis Dementia Dysphagia Family history: Allergy Family history: Asthma Family history: Breast disease Family history: Cardiovascular disease Family history: Coronary thrombosis Family history: Gastrointestinal disease Family history: Glaucoma Family history: Hypertension Family history: Osteoporosis Family history: Thyroid disorder Headache Hearing loss Heart disease Hereditary disease History of - anemia History of - disorder History of - respiratory disease History of drug abuse Human immunodeficiency virus (HIV) seropositivity Hypercholesterolemia Infertile Kidney disease Malignant neoplasm of lung Myocardial infarction Parkinson's disease Prostate cancer Psychotic disorder Seizure disorder Stroke Tuberculosis Visual impairment Physical Exam Vital Signs Vital Sign - Last 12Hours 06/07/17 08:40 Temp 98.5 Pulse 78 Resp 16 B/P (MAP) 145/71 Pulse Ox 98 O2 Delivery Room Air Capillary Refill : General Appearance: WD/WN, no apparent distress Cardiovascular: regular rate, rhythm Respiratory: normal breath sounds Feet: left foot other (HEALED WOUND WITH CALLOUS TO CENTER/BALL OF LEFT FOOT. STAGE 2 ULCER BETWEEN LEFT FIRST AND SECOND TOES WITH MACERATION OF SKIN AND OOZING OF ODOROUS SEROUS DRAINAGE. ENTIRE LEFT FOOT WITH MODERATE SWELLING AND REDNESS, EXTENDING TO ANKLE. NO DISCRETE AREAS OF FLUCTUANCE. NO STREAKS UP LEG. FOOT IS WARM AND PINK. DORSALIS PEDIS PULSE ON LEFT +3/4, POSTERIOR TIBIAL PULSES ON LEFT +2/4. DECREASED SENSATION TO BOTH FEET. DORSALIS PEDIS PULSE ON RIGHT +1/4, AND VERY FAINT POSTERIOR TIBIAL PULSE ON RIGHT. ) Neurologic/Tendon: normal motor functions, normal tendon functions, sensory deficit Neurologic/Psychiatric: alert, normal mood/affect, oriented x 3 Skin: other ( ABOVE) Progress/Results/Core Measures Results/Orders Lab Results Laboratory Tests Test 06/07/17 09:00 Range/Units White Blood Count 15.2 H 4.3-11.0 10^3/uL Red Blood Count 4.21 L 4.35-5.85 10^6/uL Hemoglobin 11.6 L 13.3-17.7 G/DL Hematocrit 35 L 40-54 % Mean Corpuscular Volume 84 80-99 FL Mean Corpuscular Hemoglobin 28 25-34 PG Mean Corpuscular Hemoglobin Concent 33 32-36 G/DL Red Cell Distribution Width 14.9 H 10.0-14.5 % Platelet Count 170 130-400 10^3/uL Mean Platelet Volume 10.7 H 7.4-10.4 FL Neutrophils (%) (Auto) 88 H 42-75 % Lymphocytes (%) (Auto) 3 L 12-44 % Monocytes (%) (Auto) 8 0-12 % Eosinophils (%) (Auto) 0 0-10 % Basophils (%) (Auto) 0 0-10 % Neutrophils # (Auto) 13.4 H 1.8-7.8 X 10^3 Lymphocytes # (Auto) 0.5 L 1.0-4.0 X 10^3 Monocytes # (Auto) 1.3 H 0.0-1.0 X 10^3 Eosinophils # (Auto) 0.0 0.0-0.3 10^3/uL Basophils # (Auto) 0.0 0.0-0.1 10^3/uL Neutrophils % (Manual) 81 % Lymphocytes % (Manual) 4 % Monocytes % (Manual) 6 % Eosinophils % (Manual) 0 % Basophils % (Manual) 0 % Band Neutrophils 9 % Anisocytosis SLIGHT Erythrocyte Sedimentation Rate 66 H 0-30 MM/HR Prothrombin Time 13.7 12.2-14.7 SEC INR Comment 1.0 0.8-1.4 Activated Partial Thromboplast Time 26 24-35 SEC Sodium Level 133 L 135-145 MMOL/L Potassium Level 4.2 3.6-5.0 MMOL/L Chloride Level 100 98-107 MMOL/L Carbon Dioxide Level 24 21-32 MMOL/L Anion Gap 9 5-14 MMOL/L Blood Urea Nitrogen 34 H 7-18 MG/DL Creatinine 1.76 H 0.60-1.30 MG/DL Estimat Glomerular Filtration Rate 39 BUN/Creatinine Ratio 19 Glucose Level 373 H 70-105 MG/DL Lactic Acid Level 1.54 0.50-2.00 MMOL/L Calcium Level 9.8 8.5-10.1 MG/DL Total Bilirubin 0.7 0.1-1.0 MG/DL Aspartate Amino Transf (AST/SGOT) 20 5-34 U/L Alanine Aminotransferase (ALT/SGPT) 24 0-55 U/L Alkaline Phosphatase 102 40-136 U/L C-Reactive Protein High Sensitivity 17.84 H 0.00-0.50 MG/DL Total Protein 7.3 6.4-8.2 GM/DL Albumin 3.4 3.2-4.5 GM/DL My Orders Orders - SARAHI NOEL DO Saline Lock/Iv-Start (06/07/17 08:41) Cbc With Automated Diff (06/07/17 08:41) Comprehensive Metabolic Panel (06/07/17 08:41) Hs C Reactive Protein (06/07/17 08:41) Erythrocyte Sedimentation Rate (06/07/17 08:41) Lactic Acid Analyzer (06/07/17 08:41) Protime With Inr (06/07/17 08:41) Partial Thromboplastin Time (06/07/17 08:41) Blood Culture (06/07/17 08:41) Wound Culture (06/07/17 08:41) Foot, Left, 3 Views (06/07/17 08:41) Vancomycin Injection (Vancomycin Injecti (06/07/17 09:30) Manual Differential (06/07/17 09:00) Medications Given in ED Current Medications Medications Dose Ordered Sig/Forrest Route Start Time Stop Time Status Last Admin Dose Admin Vancomycin HCl 1000 mg/Sodium Chloride 250 ml @ 250 mls/hr ONCE ONCE IV 06/07/17 09:30 06/07/17 10:29 06/07/17 09:39 250 MLS/HR Vital Signs/I&O Vital Sign - Last 12Hours 06/07/17 08:40 Temp 98.5 Pulse 78 Resp 16 B/P (MAP) 145/71 Pulse Ox 98 O2 Delivery Room Air Diagnostic Imaging Comments XRAYS LEFT FOOT--SIGNIFICANT BONY EROSION OF DISTAL FIRST METATARSAL --PER RADIOLOGIST REPORT @ 0959. SIGNIFICANT CHANGE FROM XRAY DONE 09/2016 Reviewed: Reviewed by Me Departure Communication (Admissions) Progress Notes 0920--SPOKE WITH DR. CUMMINGS, HOSPITALIST ROW [facility]. ACCEPTS PT FOR ADMIT Impression Impression: Primary Impression: Diabetic ulcer of left foot Additional Impressions: LEFT FOOT CELLULITIS OF LEFT FOOT AND TOES Osteomyelitis of left foot IDDM (insulin dependent diabetes mellitus) Peripheral neuropathy Disposition: ADMITTED INPATIENT Condition: Stable Admissions Decision to Admit Reason: Admit from ER (General) Decision to Admit/Date: Jun 07, 2017 Time/Decision to Admit Time: 09:35 Departure-Patient Inst. Referrals: OLAMIDE SEVERINO MD (PCP/Family) Primary Care Physician SARAHI NOEL DO Jun 07, 2017 08:54
[2017-06-07 09:19] LABS: BASOPHILS % (AUTO) 0 % (0-10); EOSINOPHILS % (AUTO) 0 % (0-10); LYMPHOCYTES # (AUTO) 0.5 X 10^3 (1.0-4.0); LYMPHOCYTES % (AUTO) 3 % (12-44); MEAN CORPUSCULAR HEMOGLOBIN 28 PG (25-34); MEAN CORPUSCULAR HGB CONC 33 G/DL (32-36); MEAN CORPUSCULAR VOLUME 84 FL (80-99); MEAN PLATELET VOLUME 10.7 FL (7.4-10.4); MONOCYTES # (AUTO) 1.3 X 10^3 (0.0-1.0); MONOCYTES % (AUTO) 8 % (0-12); NEUTROPHILS # (AUTO) 13.4 X 10^3 (1.8-7.8); NEUTROPHILS % (AUTO) 88 % (42-75); PLATELET COUNT 170 10^3/uL (130-400); RED BLOOD COUNT 4.21 10^6/uL (4.35-5.85); RED CELL DISTRIBUTION WIDTH 14.9 % (10.0-14.5); WHITE BLOOD COUNT 15.2 10^3/uL (4.3-11.0)
[2017-06-07 09:27] LABS: PROTHROMBIN TIME PATIENT 13.7 SEC (12.2-14.7)
[2017-06-07] MEDS ORDERED: VANCOMYCIN INJECTION 1,000 MG in NS (IVPB) 250 ML IV ONE (09:30)
[2017-06-07 09:43] LABS: ANISOCYTOSIS SLIGHT; BAND NEUTROPHILS 9 %; BASOPHILS % (MANUAL) 0 %; EOSINOPHILS % (MANUAL) 0 %; LYMPHOCYTES % (MANUAL) 4 %; NEUTROPHILS % (MANUAL) 81 %
[2017-06-07 09:44] LABS: ALBUMIN 3.4 GM/DL (3.2-4.5); BILIRUBIN,TOTAL 0.7 MG/DL (0.1-1.0); CALCIUM 9.8 MG/DL (8.5-10.1); CREATININE SERUM 1.76 MG/DL (0.60-1.30); POTASSIUM 4.2 MMOL/L (3.6-5.0); TOTAL PROTEIN 7.3 GM/DL (6.4-8.2); hs C REACTIVE PROTEIN 17.84 MG/DL (0.00-0.50)
[2017-06-07 09:51] LABS: ERYTHROCYTE SEDIMENTATION RATE 66 MM/HR (0-30)
--- NOTE | 2017-06-07 09:52 | Diagnostic Imaging Report ---
EXAM: FOOT, LEFT, 3 VIEWS INDICATION: Left foot swelling. COMPARISON: Left foot radiograph 10/09/2016. FINDINGS: Since prior exam, there has been mixed lytic and sclerotic expansion of the distal left first metatarsal. There is now dorsal subluxation of the left first proximal phalanx in relation to the MTP. Pes planus. Hallux valgus. IMPRESSION: Interval mixed lytic and sclerotic expansion of the distal left first metatarsal. Given the rapid development of these findings, findings are suspicious for chronic osteomyelitis, less likely inflammatory arthropathy or posttraumatic. Dictated by: Dictated on workstation # [id number]
[2017-06-07] MEDS ORDERED: PIPERACILLIN/TAZOBACTAM 4.5 GM/NS100 ML IVPB IV NR ×2 (10:34)
[2017-06-07] MEDS ORDERED: VANCOMYCIN 1 GM/NS 250 ML IVPB IV NR ×2 (10:39)
[2017-06-07] MEDS ORDERED: ACETAMINOPHEN 500 MG TAB (TYLENOL) PO PRN (10:45)
[2017-06-07] MEDS ORDERED: inSUlin (REGULAR) HUMAN 1 UNIT/0.01 ML (CHARGE PER UNIT) SC SCH (11:00)
--- NOTE | 2017-06-07 11:07 | History & Physical-Hospitalist ---
HPI History of Present Illness: HPI/Chief Complaint Pt. is a 67yoCM with a PMH of chronic diabetic wounds necessitating extensive wound care and PAD angioplasty to the anterior tibial artery in 11/2016 who presented today with CC of pus draining from a wound in his foot. He reports he has felt poorly for the past few days. he has felt very weak and having minimal appetite he is mostly late in bed the past 3-4 days. Today he woke up feeling better so decided to take a shower and when he raised his leg to dry his foot he saw pus draining from in between his toes. He then noticed that his foot had was swollen, red, and warm. He has no sensation below his ankles. He does endorse a history of trauma to his foot roughly 1-2 weeks ago after stubbing it otherwise he is unaware of any preceding injuries. He is also not taken his medications for the past few days as he has not been feeling well. Source: patient, family Exam Limitations: no limitations Date Seen 06/07/17 Time Seen by Provider: 10:30 Attending Physician Syed Cervantes MD PCP Daniel Roberts MD Referring Physician Date of Admission Jun 07, 2017 at 09:35 Home Medications & Allergies Home Medications Reviewed patient Home Medication Reconciliation Form Allergies Allergies Coded Allergies No Known Drug Allergies (Unverified04/20/14) Past Nhygovs-Ecbciq-Xhjuil Hx Patient Social History Marrital Status: Alcohol Use: Denies Use Recreational Drug Use: No Smoking Status: Former Smoker (4 PPD, QUIT 1979) Recent Foreign Travel: No Contact w/other who traveled: No Recent Infectious Disease Expo: No Immunizations Up To Date Tetanus Booster (TDap): Less than 5yrs Pediatric: No Date of Pneumonia Vaccine: Apr 21, 2014 Surgeries Yes (ANGIOPLASTY LEFT LEG 11/27/16) Adenoidectomy, Appendectomy, Tonsillectomy, Vascular Surgery Respiratory No Cardiovascular Yes (ANGIOPLASTY LEFT LEG) High Cholesterol, Hypertension, Peripheral Vascular Neurological Yes Neuropathy Reproductive System Sexually Transmitted Disease: No HIV/AIDS: No Genitourinary No Gastrointestinal No Musculoskeletal Yes Arthritis Endocrine History of Endocrine Disorders: Yes Endocrine Disorders: Diabetes, Insulin dep HEENT History of HEENT Disorders: Yes HEENT Disorders: Cataract Loss of Vision: Denies Hearing Impairment: Denies Cancer No Psychosocial History of Psychiatric Problem: No Integumentary History of Skin or Integumenta: Yes (DIABETIC FOOT ULCERS WITH CELLULITIS) Blood Transfusions History of Blood Disorders: No Adverse Reaction to a Blood Tr: No Family Medical History Family Hx: Cataract 19 MOTHER Family history: Alzheimer's disease 19 MOTHER Family history: Arthritis 19 FATHER 19 MOTHER G8 BROTHER G8 BROTHER G8 SISTER G8 SISTER Family history: Diabetes mellitus 19 FATHER 19 MOTHER G8 BROTHER G8 BROTHER G8 SISTER G8 SISTER No Family History of: Abdominal aortic aneurysm Dumas's disease Alcoholism Aphasia Cancer Cancer of colon Chest pain Congenital heart disease Congestive heart failure Cystic fibrosis Dementia Dysphagia Family history: Allergy Family history: Asthma Family history: Breast disease Family history: Cardiovascular disease Family history: Coronary thrombosis Family history: Gastrointestinal disease Family history: Glaucoma Family history: Hypertension Family history: Osteoporosis Family history: Thyroid disorder Headache Hearing loss Heart disease Hereditary disease History of - anemia History of - disorder History of - respiratory disease History of drug abuse Human immunodeficiency virus (HIV) seropositivity Hypercholesterolemia Infertile Kidney disease Malignant neoplasm of lung Myocardial infarction Parkinson's disease Prostate cancer Psychotic disorder Seizure disorder Stroke Tuberculosis Visual impairment Review of Systems Constitutional: No fever, malaise, weakness EENTM: No blurred vision, No double vision Respiratory: No cough, No dyspnea on exertion, No short of breath, No wheezing Cardiovascular: No chest pain, No palpitations Gastrointestinal: No abdominal pain, No constipation, No diarrhea, loss of appetite, No nausea, No vomiting Genitourinary: No dysuria, No frequency Musculoskeletal: No joint pain, No muscle pain Psychiatric/Neurological: Denies Headache, Paresthesia (bilateral lower extremities- chronic), Weakness Physical Exam Physical Exam Vital Signs Vital Sign - Last 12Hours 06/07/17 08:40 Temp 98.5 Pulse 78 Resp 16 B/P (MAP) 145/71 Pulse Ox 98 O2 Delivery Room Air Capillary Refill : Less Than 3 Seconds General Appearance: No Apparent Distress, WD/WN Neck: Non Tender, Supple Respiratory: Lungs Clear, Normal Breath Sounds, No Accessory Muscle Use, No Respiratory Distress Cardiovascular: Regular Rate, Rhythm, No Edema, No Murmur, Normal Peripheral Pulses Gastrointestinal: Normal Bowel Sounds, Non Tender, Soft Extremity: Normal Capillary Refill, Non Tender, No Calf Tenderness, No Pedal Edema Neurologic/Psychiatric: Alert, Oriented x3 Skin: Normal Color, Warm/Dry, Other (left foot with edema and erythema- skin breakdown and maceration between first and second toe) Results Results/Procedures Lab Laboratory Tests 06/07/17 09:00 Radiology LEFT FOOT 3 VIEWS IMPRESSION: Interval mixed lytic and sclerotic expansion of the distal left first metatarsal. Given the rapid development of these findings, findings are suspicious for chronic osteomyelitis, less likely inflammatory arthropathy or posttraumatic. Assessment/Plan Admission Diagnosis Diabetic Foot wound with underlying osteomyelitis Diagnosis/Problems Diagnosis/Problems (1) Osteomyelitis of left foot Status: Acute Assessment & Plan: Unsure if acute or chronic given presentation Will treat with Vanc/Zosyn Consult Wound Care Cultures sent This is not sepsis (2) Diabetic ulcer of left foot Status: Acute Assessment & Plan: Newly developed over past few days pt believe Abx as above Wound Care (3) Acute on chronic renal insufficiency Status: Acute Assessment & Plan: Review of labs show baseline CKD with acute elevation Likely prerenal due to recent illness Will start IVF Monitor in AM (4) Essential (primary) hypertension Status: Chronic Assessment & Plan: Pt unsure of home medications will bring in home meds to confirm (5) Peripheral arterial disease Status: Chronic Assessment & Plan: s/p angioplasty in November Bilateral feet with 2+ DP pulses He is unsure of anticoagulation but last cards note recommends ASA/Plavix Will continue (6) Peripheral neuropathy Status: Chronic Assessment & Plan: 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
[2017-06-07] MEDS ORDERED: VANCOMYCIN INJECTION 0.1 MG in NS (IVPB) 250 ML IV SCH (11:30)
[2017-06-07 11:50] VITALS: BP 162/87
[2017-06-07] MEDS ORDERED: inSUlin (REGULAR) HUMAN 1 UNIT/0.01 ML (CHARGE PER UNIT) ONE (11:57)
[2017-06-07] MEDS: CLOPIDOGREL 75 MG (PLAVIX) TABLET PO SCH (12:10)
[2017-06-07] MEDS: ASPIRIN E.C. 81 MG (ECOTRIN) TAB PO SCH (12:10)
[2017-06-07] MEDS: NS IV 1000 ML 1,000 ML IV SCH (12:10)
[2017-06-07] MEDS: ATORVASTATIN 20 MG (LIPITOR) TABLET PO SCH (12:11)
[2017-06-07] MEDS: ENOXAPARIN 40 MG/0.4 ML (LOVENOX) SYR SC SCH (12:11)
[2017-06-07] MEDS: PANTOPRAZOLE 40 MG (PROTONIX) TAB PO SCH (12:11)
[2017-06-07] MEDS ORDERED: OMEG-141 PO (14:20)
[2017-06-07] MEDS ORDERED: MULT-1067 PO (14:20)
[2017-06-07] MEDS ORDERED: AMLO5TAB2 PO (14:20)
[2017-06-07] MEDS ORDERED: METF1000 PO (14:20)
[2017-06-07] MEDS ORDERED: PANT40TA3 PO (14:20)
[2017-06-07] MEDS ORDERED: MAGN250T13 PO (14:20)
[2017-06-07] MEDS ORDERED: METH1TAB59 PO (14:20)
[2017-06-07] MEDS: PREGABALIN 75 MG (LYRICA) CAP PO SCH (15:58)
[2017-06-07 15:59] VITALS: BP 162/76
[2017-06-07] MEDS: inSUlin ASPART (NovoLOG) 1 UNIT/0.01 ML (CHARGE PER UNIT) SC SCH ×2 (16:02→21:49)
[2017-06-07] MEDS: PIPERACILLIN/TAZOBACTAM 4.5 GM/NS 100 ML IVPB IV SCH ×4 (16:09→23:01)
[2017-06-07] MEDS ORDERED: MILK OF MAGNESIA 400 MG/5 ML 30 ML UDC PO PRN (16:15)
[2017-06-07] MEDS ORDERED: ANTACID SUSP 30 ML UDC (MYLANTA) PO PRN (16:15)
[2017-06-07] MEDS ORDERED: PIPERACILLIN SODIUM/TAZOBACTAM 4.5 GM in NS (IVPB) 100 ML IV SCH (19:30)
[2017-06-07] MEDS: ACETAMINOPHEN 325 MG TABLET/CAPLET (TYLENOL) PO PRN (20:18)
[2017-06-07] MEDS: VANCOMYCIN 1 GM/NS 250 ML IVPB IV SCH ×2 (21:00)
[2017-06-08] VITALS: BP 126/60
[2017-06-08] MEDS: NS IV 1000 ML 1,000 ML IV SCH ×3 (00:44→20:42)
[2017-06-08] MEDS: PIPERACILLIN/TAZOBACTAM 4.5 GM/NS 100 ML IVPB IV SCH ×6 (00:44→16:24)
[2017-06-08 04:00] VITALS: BP 113/65
[2017-06-08] MEDS: ACETAMINOPHEN 325 MG TABLET/CAPLET (TYLENOL) PO PRN (05:41)
[2017-06-08] MEDS: inSUlin ASPART (NovoLOG) 1 UNIT/0.01 ML (CHARGE PER UNIT) SC SCH ×4 (05:41→20:42)
[2017-06-08 06:24] LABS: BASOPHILS % (AUTO) 0 % (0-10); EOSINOPHILS # (AUTO) 0.1 10^3/uL (0.0-0.3); EOSINOPHILS % (AUTO) 1 % (0-10); LYMPHOCYTES # (AUTO) 0.9 X 10^3 (1.0-4.0); LYMPHOCYTES % (AUTO) 8 % (12-44); MEAN CORPUSCULAR HEMOGLOBIN 27 PG (25-34); MEAN CORPUSCULAR HGB CONC 33 G/DL (32-36); MEAN CORPUSCULAR VOLUME 83 FL (80-99); MONOCYTES # (AUTO) 1.3 X 10^3 (0.0-1.0); MONOCYTES % (AUTO) 11 % (0-12); NEUTROPHILS % (AUTO) 81 % (42-75); PLATELET COUNT 182 10^3/uL (130-400); RED CELL DISTRIBUTION WIDTH 14.8 % (10.0-14.5); WHITE BLOOD COUNT 12.3 10^3/uL (4.3-11.0)
[2017-06-08 06:52] LABS: ALBUMIN 2.9 GM/DL (3.2-4.5); BILIRUBIN,TOTAL 0.4 MG/DL (0.1-1.0); CALCIUM 8.9 MG/DL (8.5-10.1); CREATININE SERUM 1.55 MG/DL (0.60-1.30); POTASSIUM 3.7 MMOL/L (3.6-5.0); TOTAL PROTEIN 6.2 GM/DL (6.4-8.2)
[2017-06-08] MEDS: PANTOPRAZOLE 40 MG (PROTONIX) TAB PO SCH (08:24)
[2017-06-08] MEDS: amLODIPine 5 MG (NORVASC) TAB PO SCH (08:25)
[2017-06-08] MEDS: ATORVASTATIN 20 MG (LIPITOR) TABLET PO SCH (08:25)
[2017-06-08] MEDS: ASPIRIN E.C. 81 MG (ECOTRIN) TAB PO SCH (08:25)
[2017-06-08] MEDS: CLOPIDOGREL 75 MG (PLAVIX) TABLET PO SCH (08:26)
[2017-06-08 08:46] VITALS: BP 143/70
[2017-06-08] MEDS: VANCOMYCIN 1 GM/NS 250 ML IVPB IV SCH ×4 (10:10→22:00)
[2017-06-08] MEDS: ENOXAPARIN 40 MG/0.4 ML (LOVENOX) SYR SC SCH (11:16)
--- NOTE | 2017-06-08 11:37 | Progress Note-Hospitalist ---
Subjective HPI/CC On Admission Date Seen by Provider: Jun 08, 2017 Time Seen by Provider: 11:15 Pt. is a 67yoCM with a PMH of chronic diabetic wounds necessitating extensive wound care and PAD angioplasty to the anterior tibial artery in 11/2016 who presented today with CC of pus draining from a wound in his foot. He reports he has felt poorly for the past few days. he has felt very weak and having minimal appetite he is mostly late in bed the past 3-4 days. Today he woke up feeling better so decided to take a shower and when he raised his leg to dry his foot he saw pus draining from in between his toes. He then noticed that his foot had was swollen, red, and warm. He has no sensation below his ankles. He does endorse a history of trauma to his foot roughly 1-2 weeks ago after stubbing it otherwise he is unaware of any preceding injuries. He is also not taken his medications for the past few days as he has not been feeling well. Subjective/Events-last exam Pt reports feeling well today. No complaints. Eating and drinking well. No other concerns. Objective Exam Vital Signs Vital Sign - Last 12Hours 06/07/17 08:40 Temp 98.5 Pulse 78 Resp 16 B/P (MAP) 145/71 Pulse Ox 98 O2 Delivery Room Air Capillary Refill : Less Than 3 Seconds General Appearance: No Apparent Distress, WD/WN Respiratory: Lungs Clear, Normal Breath Sounds, No Respiratory Distress Cardiovascular: Regular Rate, Rhythm, No Murmur Gastrointestinal: Normal Bowel Sounds, Non Tender, Soft Neurologic/Psychiatric: Alert, Oriented x3 Skin: Other (left foot wrapped in gauze, dressing clean and dry) Results/Procedures Lab Laboratory Tests 06/08/17 06:11 Assessment/Plan Assessment and Plan Assess & Plan/Chief Complaint Diabetic foot wound with underling osteomyelitis Diagnosis/Problems Diagnosis/Problems (1) Osteomyelitis of left foot Status: Acute Assessment & Plan: Unsure if acute or chronic given presentation likely chronic Continue Vanc/Zosyn D #2 Consult Wound Care Cultures sent (2) Diabetic ulcer of left foot Status: Acute Assessment & Plan: Newly developed over past few days pt believe Abx as above Wound Care (3) Acute on chronic renal insufficiency Status: Acute Assessment & Plan: Improving Continue IVF trend (4) IDDM (insulin dependent diabetes mellitus) Status: Chronic Assessment & Plan: On Trusiba at home but unsure of dose Will start on Sliding Scale and convert basal insulin to our formulary Holding metformin Last a1c in November 7.6 (5) Essential (primary) hypertension Status: Chronic Assessment & Plan: Continue home meds (6) Peripheral arterial disease Status: Chronic Assessment & Plan: s/p angioplasty in November Bilateral feet with 2+ DP pulses He is unsure of anticoagulation but last cards note recommends ASA/Plavix Will continue (7) Peripheral neuropathy Status: Chronic Assessment & Plan: Diabetic neuropathy shelter, 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 Qualifiers: Qualified Codes: G63 - Polyneuropathy in diseases classified elsewhere (8) Prophylactic measure Assessment & Plan: Lovenox for DVT ppx No GI ppx needed Heart Healthy/Carb Controlled diet NS at 75ml/hr SYED ARIAS MD Jun 08, 2017 11:37
[2017-06-08 12:17] VITALS: BP 128/68
[2017-06-08] MEDS: inSUlin DETERMIR 1 UNIT/0.01 ML (LEVEMIR) CHARGE PER UNIT SQ SCH (13:22)
[2017-06-08 16:00] VITALS: BP 154/73
[2017-06-08] MEDS: PREGABALIN 75 MG (LYRICA) CAP PO SCH (20:39)
[2017-06-08] MEDS ORDERED: TROUGH ORDER-PHARMACY XX NR (21:00)
[2017-06-09] VITALS: BP 152/71
[2017-06-09] MEDS: PIPERACILLIN/TAZOBACTAM 4.5 GM/NS 100 ML IVPB IV SCH ×6 (01:34→17:12)
[2017-06-09] MEDS: inSUlin ASPART (NovoLOG) 1 UNIT/0.01 ML (CHARGE PER UNIT) SC SCH ×4 (05:43→20:54)
[2017-06-09 06:19] LABS: BASOPHILS # (AUTO) 0.1 10^3/uL (0.0-0.1); BASOPHILS % (AUTO) 1 % (0-10); EOSINOPHILS # (AUTO) 0.4 10^3/uL (0.0-0.3); EOSINOPHILS % (AUTO) 4 % (0-10); LYMPHOCYTES # (AUTO) 1.4 X 10^3 (1.0-4.0); LYMPHOCYTES % (AUTO) 15 % (12-44); MEAN CORPUSCULAR HEMOGLOBIN 27 PG (25-34); MEAN CORPUSCULAR HGB CONC 33 G/DL (32-36); MEAN CORPUSCULAR VOLUME 82 FL (80-99); MEAN PLATELET VOLUME 11.4 FL (7.4-10.4); MONOCYTES % (AUTO) 11 % (0-12); NEUTROPHILS # (AUTO) 6.4 X 10^3 (1.8-7.8); NEUTROPHILS % (AUTO) 69 % (42-75); PLATELET COUNT 231 10^3/uL (130-400); WHITE BLOOD COUNT 9.2 10^3/uL (4.3-11.0)
[2017-06-09 06:37] LABS: CALCIUM 9.1 MG/DL (8.5-10.1); CREATININE SERUM 1.21 MG/DL (0.60-1.30); POTASSIUM 3.8 MMOL/L (3.6-5.0)
[2017-06-09 08:14] VITALS: BP 132/80
[2017-06-09] MEDS ORDERED: NON-FORMULARY MEDICATION 1 EA EA (Insulin Degludec (Tresiba Flextouch U-200) 50 UNITS) SQ SCH (09:00)
[2017-06-09] MEDS: ASPIRIN E.C. 81 MG (ECOTRIN) TAB PO SCH (09:40)
[2017-06-09] MEDS: ATORVASTATIN 20 MG (LIPITOR) TABLET PO SCH (09:40)
[2017-06-09] MEDS: amLODIPine 5 MG (NORVASC) TAB PO SCH (09:41)
[2017-06-09] MEDS: CLOPIDOGREL 75 MG (PLAVIX) TABLET PO SCH (09:41)
[2017-06-09] MEDS: PANTOPRAZOLE 40 MG (PROTONIX) TAB PO SCH (09:41)
[2017-06-09] MEDS: inSUlin DETERMIR 1 UNIT/0.01 ML (LEVEMIR) CHARGE PER UNIT SQ SCH (09:42)
--- NOTE | 2017-06-09 11:40 | Progress Note-Hospitalist ---
Standard Progress Note Progress Notes/Assess & Plan Date Seen 06/09/17 Time Seen by Provider: 11:34 Diagnosis Diabetic Foot wound with underlying osteomyelitis Assess & Plan/Chief Complaint The patient is a 67-year-old white male with long-standing diabetes and past history of wound care needs. He reports that he thought he was developing a cold at home but found out after he arrived here that it was his foot which was the problem. He had not had any pain to herald this. Physical exam: He was plump and robust. Lungs were clear to auscultation. CV was regular without murmur. The left lower extremity showed no erythema extending above the malleoli. There was considerable deformity of the foot with loss of arch, considerable widening of the foot, and severe hammertoe deformity with a prominent plantar displacement of the second toe MP joint. There was a skin split between the first and second toes. Impression: Cellulitis left foot with radiographic evidence of osteomyelitis. 2.diabete type 2 osteomyelitis left foot With significant peripheral neuropathy. Labs Laboratory Tests 06/08/17 06:11 06/09/17 05:45 Diagnosis/Problems Diagnosis/Problems (1) Osteomyelitis of left foot Status: Acute Assessment & Plan: Unsure if acute or chronic given presentation likely chronic Continue Vanc/Zosyn D #2 Consult Wound Care Cultures sent (2) Diabetic ulcer of left foot Status: Acute Assessment & Plan: Newly developed over past few days pt believe Abx as above Wound Care (3) Acute on chronic renal insufficiency Status: Acute Assessment & Plan: Improving Continue IVF trend (4) IDDM (insulin dependent diabetes mellitus) Status: Chronic Assessment & Plan: On Trusiba at home but unsure of dose Will start on Sliding Scale and convert basal insulin to our formulary Holding metformin Last a1c in November 7.6 (5) Essential (primary) hypertension Status: Chronic Assessment & Plan: Continue home meds (6) Peripheral arterial disease Status: Chronic Assessment & Plan: s/p angioplasty in November Bilateral feet with 2+ DP pulses He is unsure of anticoagulation but last cards note recommends ASA/Plavix Will continue (7) Peripheral neuropathy Status: Chronic Assessment & Plan: Diabetic neuropathy long term, 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 Qualifiers: Qualified Codes: G63 - Polyneuropathy in diseases classified elsewhere (8) Prophylactic measure Assessment & Plan: Lovenox for DVT ppx No GI ppx needed Heart Healthy/Carb Controlled diet NS at 75ml/hr KILLIAN STERLING MD Jun 09, 2017 11:40
--- NOTE | 2017-06-09 12:41 | Physical Therapy Progress Note ---
Therapy Progress Note PT attempted multiple times, between and , to evaluate patient, however, unsuccessful. Patient was up independent to take a shower, then physician was in to assess, then dressing on left foot was removed and RN requested we wait until she redressed his wound. PT will attempt in p.m.. 1 visit CHRISTIAN MANRIQUE PT Jun 09, 2017 12:41
[2017-06-09] MEDS: ENOXAPARIN 40 MG/0.4 ML (LOVENOX) SYR SC SCH (12:56)
--- NOTE | 2017-06-09 13:57 | Physical Therapy Evaluation ---
PT Evaluation-General Medical Diagnosis Admission Date Jun 07, 2017 at 09:35 Medical Diagnosis: left diabetic foot ulcer/cellulitis Onset Date: Jun 07, 2017 Therapy Diagnosis Therapy Diagnosis: debility Height/Weight Height (Feet): 5 Height (Inches): 10.00 Weight (Pounds): 215 Weight (Ounces): 0.0 Precautions Precautions/Isolations: Standard Precautions Referral Physician: Martinez Reason for Referral: Evaluation/Treatment Medical History Pertinent Medical History: DM, HTN, Neuropathy, PVD Additional Medical History angioplasty left LE 11/27/16 Current History ER secondary to left foot edema, redness, fever, nausea x 3 days osteomyelitis Reviewed History: Yes Social History Home: Single Level Current Living Status: Spouse Prior/Core FIM Prior Level of Function Functional [place] Measure 0=Not Assessed/NA 4=Minimal Assistance 1=Total Assistance 5=Supervision or Setup 2=Maximal Assistance 6=Modified [place] 3=Moderate Assistance 7=Complete [place] Bed Mobility: 7 Transfers (B,C,W/C) (FIM): 7 Gait: 7 PT Evaluation-Current Subjective Agrees to PT. Pain Numeric Pain Scale: 0-No Pain Location: No Pain Reported Objective Patient Orientation: Normal For Age Problem Solving: Good Attachments: IV ROM/Strength ROM Lower Extremities bilateral LE WNL Strenght Lower Extremities bilateral LE WNL Integumentary/Posture Integumentary refer to nursing notes Bowel Incontinence: No Bladder Incontinence: No Posture WNL Neuromuscular (Tone, Coordination, Reflexes) grossly intact Sensory Vision: Functional Hearing: Functional Sensation Right Lower Extremit: Impaired Sensation Left Lower Extremity: Impaired Sensation Lower Extremities peripheral neuropathy Transfers Functional [place] Measure 0=Not Assessed/NA 4=Minimal Assistance 1=Total Assistance 5=Supervision or Setup 2=Maximal Assistance 6=Modified [place] 3=Moderate Assistance 7=Complete [employer] [place] Transfers (B, C, W/C) (FIM): 7 Scootin Rollin Supine to/from Sit: 7 Sit to/from Stand: 7 Gait Mode of Locomotion: Walk Anticipated Mode of Locomotion: Walk Gait (FIM): 7 Distance (FIM): 3=150 ft Distance: 400' Gait Level of Assist: 7 Gait Assistive Device: None Comments/Gait Description safe and functional with Good balance Balance Sitting Static: Normal Sitting Dynamic: Normal Standing Static: Normal Standing Dynamic: Normal Assessment/Needs 67 y.o. male, is currently at independent LOF with all gross motor skills and does not require skilled PT at this time. Rehab Potential: Good PT Plan Treatment/Plan Treatment Plan: Discontinue PT, goals met Treatment Plan: Other Treatment Duration: Jun 09, 2017 Frequency: 1 time per week Estimated Hrs Per Day: .5 hour per day Patient and/or Family Agrees t: Yes Discharge Recommendations Therapy D/C Recommendations: Home w/ Family Support, Home Independently Time/GCodes Time In: 1300 Time Out: 1320 Total Billed Treatment Time: 20 Total Billed Treatment 1 visit EVLowC 20 min G Codes Necessary: CHRISTIAN Bernal PT Jun 09, 2017 13:57
--- NOTE | 2017-06-09 15:16 | Occ Therapy Progress Note ---
Therapy Progress Note OT order received. Chart reviewed. Spoke with pt. and spouse and PT. Pt. is Mod I with PT in ambulation. Pt. had just finished showering with spouse's supervision. Reports that he is having no difficulty bathing, dressing, feeding self, toileting, or ambulating. States that he is waiting on Dr. Lane to look at his foot, and to assess him getting to another garment folder for new diabetic shoes. No ADL needs or OT skilled therapy warranted at this time. Will be happy to re-assess pt. if something should change. 1, visit [id number] no charge no OT needs at this time. REILLY HOLLOWAY OT Jun 09, 2017 15:16
[2017-06-09 15:25] VITALS: BP 165/72
[2017-06-09 16:52] VITALS: BP 150/70
[2017-06-09] MEDS: NS IV 1000 ML 1,000 ML IV SCH (17:22)
--- NOTE | 2017-06-09 19:01 | Wound Care Progress Note ---
Subjective Subjective Subjective/Events-last exam 67 year old male with DFU of L foot with ulcer of 2nd MTH, erosion of abscess through to 1st webspace and deep space abscess. Cellulitis and pain have improved with IV antibiotics and elevation. I would recommend and have discussed Podiatric consultation for surgical debridement of infeted tissue, with possible amputation of L 2nd toe. PMH: Diabetes, PVD with previous angioplasty of L leg arteries. FH: Diabetes, Alzheimer's Review of Systems Date Seen by Provider: Jun 09, 2017 Time Seen by Provider: 18:30 General: No Chills Pulmonary: No Dyspnea Cardiovascular: No: Chest Pain Gastrointestinal: No: Nausea Musculoskeletal: foot pain Neurological: Numbness Objective Exam Last Set of Vital Signs Vital Signs Date Time Temp Pulse Resp B/P (MAP) Pulse Ox O2 Delivery O2 Flow Rate FiO2 06/09/17 16:52 150/70 06/09/17 15:25 98.2 57 20 98 Room Air Capillary Refill : Less Than 3 Seconds I&O Intake and Output 06/10/17 00:00 Intake Total 2880 ml Balance 2880 ml Intake Oral 1430 ml IV Total 1450 ml # Voids 8 # Bowel Movements 1 General: Alert, No Acute Distress Lungs: Normal Air Movement Extremities: Normal Pulses (Palpable), Other (Diffuse erythema and edema of L forefoot and dorsum L foot. Palpable pulses.) Skin: Other (L 2nd MTH -- 2.3 X 1.4 X 0.3 CM 50% GRANULATION, 50% SLOUGH, moderate purunent drainage; L 2nd toe, medial --- 2.0 x 2.0 x 1.3 cm, 100% necrotic slogh, thin watery drainage.) Results Lab Laboratory Tests 06/08/17 20:39: Glucometer 205H 06/08/17 20:49: Vancomycin Level Trough 18.9 06/09/17 05:33: Glucometer 118H 06/09/17 05:45: White Blood Count 9.2, Red Blood Count 4.10L, Hemoglobin 11.2L, Hematocrit 34L, Mean Corpuscular Volume 82, Mean Corpuscular Hemoglobin 27, Mean Corpuscular Hemoglobin Concent 33, Red Cell Distribution Width 15.0H, Platelet Count 231, Mean Platelet Volume 11.4H, Neutrophils (%) (Auto) 69, Lymphocytes (%) (Auto) 15 , Monocytes (%) (Auto) 11, Eosinophils (%) (Auto) 4, Basophils (%) (Auto) 1, Neutrophils # (Auto) 6.4, Lymphocytes # (Auto) 1.4, Monocytes # (Auto) 1.0, Eosinophils # (Auto) 0.4H, Basophils # (Auto) 0.1, Sodium Level 140, Potassium Level 3.8, Chloride Level 109H, Carbon Dioxide Level 23, Anion Gap 8, Blood Urea Nitrogen 22H, Creatinine 1.21, Estimat Glomerular Filtration Rate 60, BUN/ Creatinine Ratio 18, Glucose Level 130H, Calcium Level 9.1 06/09/17 10:56: Glucometer 200H 06/09/17 15:30: Glucometer 247H Microbiology 06/07/17 Blood Culture - Preliminary, Resulted Staphylococcus Aureus 06/07/17 Gram Stain - Final, Resulted 06/07/17 Wound Culture - Preliminary, Resulted Staphylococcus Aureus Staph, Coag Neg (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 Deep space abscess L forefoot. 2. Diabetic foot ulcer, L 2nd metatarsal head, Grade 3 3. Diabetic ulcer, L 2nd toe, medial aspect, Grade 3. 4. Peripheral arterial disease, s/p angioplasty spring 2016 per Diana. Plan: Podiatric consultation. Dr. Becerra has agrees to see patient in consultation. TANIA SRINIVASAN MD Jun 09, 2017 19:01
[2017-06-09] MEDS: PREGABALIN 75 MG (LYRICA) CAP PO SCH (20:12)
[2017-06-09] MEDS: POVIDONE (BETADINE) 10% SOLN 240 ML BTL TOP SCH (20:25)
[2017-06-10] VITALS: BP 138/64
[2017-06-10] MEDS: PIPERACILLIN/TAZOBACTAM 4.5 GM/NS 100 ML IVPB IV SCH ×6 (01:38→17:59)
[2017-06-10] MEDS: inSUlin ASPART (NovoLOG) 1 UNIT/0.01 ML (CHARGE PER UNIT) SC SCH ×4 (04:33→20:33)
[2017-06-10] MEDS: NS IV 1000 ML 1,000 ML IV SCH ×2 (04:34→21:59)
[2017-06-10 05:00] VITALS: BP 146/67
[2017-06-10] MEDS ORDERED: LACTATED RINGERS 1,000 ML IV PRN (05:37)
[2017-06-10] MEDS ORDERED: fentaNYL INJECTION 100 MCG/2 ML AMP ONE (05:39)
[2017-06-10] MEDS ORDERED: MIDAZOLAM 2 MG/2 ML (VERSED) VIAL ONE (05:41)
[2017-06-10] MEDS ORDERED: BUPIVACAINE 0.5% 30 ML (SENSORCAINE) VIAL ONE (06:20)
[2017-06-10] MEDS ORDERED: SEVOFLURANE (ULTANE) 15 ML INHAL SOLN ONE (06:47)
[2017-06-10] MEDS ORDERED: ONDANSETRON 4 MG/2 ML (SDV) Z0FRAN ONE (06:47)
[2017-06-10] MEDS ORDERED: LACTATED RINGERS 1,000 ML IV ONE (06:47)
[2017-06-10] MEDS ORDERED: proPOfol 200 MG/20 ML (DIPRIVAN) VIAL IV ONE (06:47)
[2017-06-10] MEDS ORDERED: LIDOCAINE PF 2% 5 ML (XYLOCAINE) VIAL ONE (06:47)
--- NOTE | 2017-06-10 06:59 | Consultation ---
History of Present Illness History of Present Illness Patient Consulted On(kelton/time) 06/10/17 06:54 Date Seen by Provider: Jun 10, 2017 Time Seen by Provider: 06:05 History of Present Illness Chronic wound right foot with recent development of deep abscess. Allergies and Home Medications Allergies Coded Allergies: No Known Drug Allergies (Unverified , 06/07/17) Home Medications Amlodipine Besylate 5 Mg Tablet, 5 MG PO DAILY, (Reported) Ascorbic Acid 500 Mg Tablet, 500 MG PO DAILY, (Reported) Aspirin 81 Mg Tablet.dr, 81 MG PO DAILY, #100 Ref 4 Prescribed by: BRITTNEY FERRERA on 11/28/16 0822 Atorvastatin Calcium 20 Mg Tablet, 20 MG PO DAILY, (Reported) Cinnamon Bark 500 Mg Capsule, 500 MG PO DAILY, (Reported) Clopidogrel Bisulfate 75 Mg Tablet, 75 MG PO DAILY, #30 Ref 4 Prescribed by: BRITTNEY FERRERA on 11/28/1622 Enalapril Maleate 20 Mg Tablet, 20 MG PO DAILY, (Reported) Insulin Degludec 200 Unit/1 Ml Insuln.pen, 50 UNITS SQ DAILY, (Reported) Magnesium Oxide 250 Mg Tablet, 250 MG PO DAILY, (Reported) Metformin HCl 1,000 Mg Tablet, 1,000 MG PO BID, (Reported) Methyl-B12/l-Mefolate/B6 Phos 1 Each Tablet, 1 TAB PO DAILY, (Reported) Multivitamin/Iron/Folic Acid 1 Each Tablet, 1 TAB PO DAILY, (Reported) [place]-3/Dha/Epa/Fish Oil 1 Each Capsule, 2 EACH PO DAILY, (Reported) Pantoprazole Sodium 40 Mg Tablet.dr, 40 MG PO DAILY, (Reported) Past Ogchxfn-Clinlc-Nqpzum Hx Patient Social History Alcohol Use: Denies Use Recreational Drug Use: No Smoking Status: Former Smoker Recent Foreign Travel: No Contact w/Someone Who Travel: No Recent Infectious Disease Expo: No Recent Hopitalizations: No Immunizations Up To Date Tetanus Booster (TDap): Less than 5yrs PED Vaccines UTD: No Date of Pneumonia Vaccine: Apr 21, 2014 Seasonal Allergies Seasonal Allergies: No Surgeries History of Surgeries: Yes (ANGIOPLASTY LEFT LEG 11/27/16) Surgeries: Adenoidectomy, Appendectomy, Tonsillectomy, Vascular Surgery Respiratory History of Respiratory Disorde: No Cardiovascular History of Cardiac Disorders: Yes (ANGIOPLASTY LEFT LEG) Cardiac Disorders: High Cholesterol, Hypertension, Peripheral Vascular Neurological History of Neurological Disord: Yes Neurological Disorders: Neuropathy Reproductive System Sexually Transmitted Disease: No HIV/AIDS: No Genitourinary History of Genitourinary Disor: No Gastrointestinal History of Gastrointestinal Di: No Musculoskeletal History of Musculoskeletal Dis: Yes Musculoskeletal Disorders: Arthritis Endocrine History of Endocrine Disorders: Yes Endocrine Disorders: Diabetes, Insulin dep HEENT History of HEENT Disorders: Yes HEENT Disorders: Cataract Loss of Vision: Denies Hearing Impairment: Denies Cancer History of Cancer: No Psychosocial History of Psychiatric Problem: No Integumentary History of Skin or Integumenta: Yes (DIABETIC FOOT ULCERS WITH CELLULITIS) Blood Transfusions History of Blood Disorders: No Adverse Reaction to a Blood Tr: No Family Medical History Family Medial History: Cataract 19 MOTHER Family history: Alzheimer's disease 19 MOTHER Family history: Arthritis 19 FATHER 19 MOTHER G8 BROTHER G8 BROTHER G8 SISTER G8 SISTER Family history: Diabetes mellitus 19 FATHER 19 MOTHER G8 BROTHER G8 BROTHER G8 SISTER G8 SISTER No Family History of: Abdominal aortic aneurysm José Miguel's disease Alcoholism Aphasia Cancer Cancer of colon Chest pain Congenital heart disease Congestive heart failure Cystic fibrosis Dementia Dysphagia Family history: Allergy Family history: Asthma Family history: Breast disease Family history: Cardiovascular disease Family history: Coronary thrombosis Family history: Gastrointestinal disease Family history: Glaucoma Family history: Hypertension Family history: Osteoporosis Family history: Thyroid disorder Headache Hearing loss Heart disease Hereditary disease History of - anemia History of - disorder History of - respiratory disease History of drug abuse Human immunodeficiency virus (HIV) seropositivity Hypercholesterolemia Infertile Kidney disease Malignant neoplasm of lung Myocardial infarction Parkinson's disease Prostate cancer Psychotic disorder Seizure disorder Stroke Tuberculosis Visual impairment Physical Exam-General Problems Physical Exam Vital Signs Vital Sign - Last 12Hours 06/07/17 08:40 Temp 98.5 Pulse 78 Resp 16 B/P (MAP) 145/71 Pulse Ox 98 O2 Delivery Room Air Capillary Refill : Less Than 3 Seconds Extremities: other (Deep abscess to the right foot with, +purulence, + probe to bone 2nd metatarsal, no probing to the 1st ray) Assessment/Plan Assessment/Plan Admission Diagnosis/Plan 1. Abscess Left Foot 2. Osteomyelitis Left 2nd metatarsal 3. Cellulitis Left Foot -Plan for I&D left foot with 2nd ray amputation -MRI post Operatively -[facility] -Defer to Dr Garces for wound care on floor at this time. Clinical Quality Measures DVT/VTE Risk/Contraindication: Risk Factor Score Per Nursin RFS Level Per Nursing on Admit: 3=High CANDE BACA DPM Jun 10, 2017 06:59
--- NOTE | 2017-06-10 07:02 | Progress Note-Post Operative ---
Post-Operative Progess Note Surgeon (s)/Dispatcher Motor Vehicle (s) Surgeon CANDE BACA DPM Dispatcher Motor Vehicle: none Pre-Operative Diagnosis 1. abscess left foot 2. left 2nd ray amputation Post-Operative Diagnosis same Procedure & Operative Findings Date of Procedure 06/10/17 Procedure Performed/Findings 1. I&D left Foot 2. Amputation left 2nd ray Anesthesia Type GA Estimated Blood Loss Estimated blood loss (mL): minimal Specimens/Packing Specimens Removed left 2nd toe and partial left 2nd metatarsal Packing: Iodoform packing CANDE BACA DPM Jun 10, 2017 07:02
[2017-06-10 08:02] VITALS: BP 149/73
[2017-06-10] MEDS: amLODIPine 5 MG (NORVASC) TAB PO SCH (08:58)
[2017-06-10] MEDS: CLOPIDOGREL 75 MG (PLAVIX) TABLET PO SCH (08:58)
[2017-06-10] MEDS: ASPIRIN E.C. 81 MG (ECOTRIN) TAB PO SCH (08:58)
[2017-06-10] MEDS: ATORVASTATIN 20 MG (LIPITOR) TABLET PO SCH (08:58)
[2017-06-10] MEDS: inSUlin DETERMIR 1 UNIT/0.01 ML (LEVEMIR) CHARGE PER UNIT SQ SCH (08:58)
[2017-06-10] MEDS: POVIDONE (BETADINE) 10% SOLN 240 ML BTL TOP SCH ×2 (08:58→20:33)
[2017-06-10] MEDS: PANTOPRAZOLE 40 MG (PROTONIX) TAB PO SCH (08:58)
[2017-06-10] MEDS: ENOXAPARIN 40 MG/0.4 ML (LOVENOX) SYR SC SCH (11:29)
[2017-06-10 12:48] VITALS: BP 167/72
--- NOTE | 2017-06-10 15:29 | Diagnostic Imaging Report ---
PROCEDURE: MR imaging left lower extremity without contrast. TECHNIQUE: Multiplanar/multisequence noncontrast enhanced MR imaging of the left lower extremity was accomplished. INDICATION: Osteomyelitis. FINDINGS: There is a deformity along the proximal phalanx of the great toe with severe subluxation superiorly at the first metatarsal/phalangeal joint. Significant bone marrow edema around the joint involving the proximal to mid aspect of the proximal phalanx and the mid shaft and head of the first metatarsal is seen. The findings could relate to neuropathic arthropathy. There is significant soft tissue edema in the surrounding region and findings related to amputation at the distal second metatarsal level. The other toes demonstrate generally normal bone marrow signal. There is a focal fluid collection measuring 1.3 x 1 x 0.7 cm seen along the plantar aspect of the amputation stump. This could be a postoperative seroma rather than abscess related. There is also another fluid collection abutting the dorsal aspect of the mid second metatarsal measuring 0.8 x 0.6 x 1.3 cm. This is abutting the subperiosteal and could be a hematoma or a small seroma as well. This is less likely to be an abscess based on the normal adjacent bone marrow signal. There is marrow signal, however, more proximally in the second metatarsal base with some bone marrow signal abnormality on the other side of the joint, perhaps degenerative related. The alignment at the tarsal/metatarsal joints is satisfactory. IMPRESSION: 1. There are post amputation changes at the level of the distal metatarsal of the second toe. Two tiny fluid collections, one at the plantar aspect of the amputation stump and a second collection abutting the dorsal aspect of the proximal to mid second metatarsal shaft, could potentially relate to postoperative seromas rather than abscess related. Correlate clinically and with followup exams, if needed. 2. There is deformity and severe superior subluxation about the first MTP joint with associated bone marrow edema in the distal first metatarsal and proximal phalanx. This could be related to neuropathic arthropathy in the setting of a diabetic foot and can explain the prominent bone marrow edema around this joint. Septic arthritis and osteomyelitis can have overlapping imaging features and cannot be ruled out in this case. Dictated by: Dictated on workstation # [id number]
[2017-06-10 16:00] VITALS: BP 149/71
[2017-06-10 19:47] VITALS: BP 175/76
[2017-06-10] MEDS: PREGABALIN 75 MG (LYRICA) CAP PO SCH (20:32)
[2017-06-11 00:15] VITALS: BP 164/77
[2017-06-11] MEDS: PIPERACILLIN/TAZOBACTAM 4.5 GM/NS 100 ML IVPB IV SCH ×6 (00:22→16:59)
[2017-06-11 04:00] VITALS: BP 167/77
[2017-06-11] MEDS: inSUlin ASPART (NovoLOG) 1 UNIT/0.01 ML (CHARGE PER UNIT) SC SCH ×4 (05:48→20:42)
[2017-06-11 07:58] VITALS: BP 166/72
[2017-06-11] MEDS: POVIDONE (BETADINE) 10% SOLN 240 ML BTL TOP SCH ×2 (08:58→20:41)
[2017-06-11] MEDS: amLODIPine 5 MG (NORVASC) TAB PO SCH (08:58)
[2017-06-11] MEDS: ATORVASTATIN 20 MG (LIPITOR) TABLET PO SCH (08:58)
[2017-06-11] MEDS: ASPIRIN E.C. 81 MG (ECOTRIN) TAB PO SCH (08:58)
[2017-06-11] MEDS: CLOPIDOGREL 75 MG (PLAVIX) TABLET PO SCH (08:58)
[2017-06-11] MEDS: inSUlin DETERMIR 1 UNIT/0.01 ML (LEVEMIR) CHARGE PER UNIT SQ SCH (08:58)
[2017-06-11] MEDS: PANTOPRAZOLE 40 MG (PROTONIX) TAB PO SCH (08:58)
--- NOTE | 2017-06-11 11:04 | Progress Note-Hospitalist ---
Progress Note HPI/CC on Admission Pt. is a 67yoCM with a PMH of chronic diabetic wounds necessitating extensive wound care and PAD angioplasty to the anterior tibial artery in 11/2016 who presented today with CC of pus draining from a wound in his foot. He reports he has felt poorly for the past few days. he has felt very weak and having minimal appetite he is mostly late in bed the past 3-4 days. Today he woke up feeling better so decided to take a shower and when he raised his leg to dry his foot he saw pus draining from in between his toes. He then noticed that his foot had was swollen, red, and warm. He has no sensation below his ankles. He does endorse a history of trauma to his foot roughly 1-2 weeks ago after stubbing it otherwise he is unaware of any preceding injuries. He is also not taken his medications for the past few days as he has not been feeling well. Progress Notes/Assess & Plan Date Seen 06/11/17 Time Seen by Provider: 10:15 Diagonsis/Assessment & Plan SW Review: Left toe amputated yesterday by Dr Becerra. Debridement was performed. Possible DC Friday on IV abx Patient Interview: Pt is feeling well and denies experiencing pain other than neuropathy. Pt confirms PCP as Dr. Roberts. Pt states he has not seen Dr. Roberts for a while though. 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 Pt states he has not seen Dr. Lane and would like someone to look at his wound. No fever, vital signs stable, pleasant, improved, walking in room Regular rate and rhythm, clear to auscultation bilaterally Left foot in dressing Assessment: Osteomyelitis of toe status post amputation left foot on IV antibiotics Diabetes mellitus Hypertension Hyperlipidemia Plan: DC tomorrow? PICC line placement today Rocephin 1gm IV daily, duration to be determined Appreciate Lucy Lane and Mariam Scribed by Kim Huston under the direct supervision of Dr. Guardado. QUE GUARDADO DO Jun 11, 2017 11:04
[2017-06-11] MEDS: ENOXAPARIN 40 MG/0.4 ML (LOVENOX) SYR SC SCH (11:07)
[2017-06-11] MEDS: NS IV 1000 ML 1,000 ML IV SCH (11:08)
--- NOTE | 2017-06-11 11:37 | Anesthesia-General Post-Op ---
General Patient Condition Mental Status/LOC: Same as Preop Cardiovascular: Satisfactory Nausea/Vomiting: Absent Respiratory: Satisfactory Pain: Controlled Complications: Absent Post Op Complications Complications None Follow Up Care/Instructions Patient Instructions None needed. Anesthesia/Patient Condition Patient Condition Patient is doing well, no complaints, stable vital signs, no apparent adverse anesthesia problems. No complications reported per nursing. DWIGHT ARVIZU CRNA Jun 11, 2017 11:37
[2017-06-11 16:12] VITALS: BP 170/65
--- NOTE | 2017-06-11 20:13 | Wound Care Progress Note ---
Subjective Subjective Subjective/Events-last exam 67 year old male recovering well post L 2nd toe amputation and debridement for deep space abscess of L foot. Wound clean by nursing report. Dressing not changed. The patient feels much better. We will follow-up as out-patient. PMH: DM, PVD. FH: Non-contributory. Review of Systems Date Seen by Provider: Jun 11, 2017 Time Seen by Provider: 18:00 General: No Chills Pulmonary: No Dyspnea Cardiovascular: No: Chest Pain Objective Exam Last Set of Vital Signs Vital Signs Date Time Temp Pulse Resp B/P (MAP) Pulse Ox O2 Delivery O2 Flow Rate FiO2 06/11/17 16:12 97.5 60 20 170/65 99 Room Air Capillary Refill : Less Than 3 Seconds I&O Intake and Output 06/12/17 00:00 Intake Total 2990 ml Output Total 775 ml Balance 2215 ml Intake Oral 1890 ml IV Total 1100 ml Output Urine Total 775 ml # Voids 4 # Bowel Movements 2 General: Alert, No Acute Distress Lungs: Normal Air Movement Extremities: Other (Surgical dressing dry and intact.) Results Lab Laboratory Tests 06/10/17 20:16: Glucometer 196H 06/11/17 05:14: Glucometer 156H 06/11/17 10:57: Glucometer 282H 06/11/17 15:50: Glucometer 174H Microbiology 06/07/17 Blood Culture - Preliminary, Resulted Staphylococcus Aureus 06/10/17 MRSA Screen - Final, Complete MRSA not isolated 06/07/17 Gram Stain - Final, Resulted 06/07/17 Wound Culture - Preliminary, Resulted Staphylococcus Aureus Staph, Coag Neg (Maintenance Scheduler) Anaerobic Gram Negative Tab Corynebacterium Species Assessment/Plan Assessment/Plan Assessment/Plan 1. Deep space abscess of L foot, with staph bacteremia. 2. S/P L 2nd toe amputation and debridement. 3. Diabetes mellitus, with peripheral neuropathy. Plan: Discharge with IV Rocephin, Iodoform dressings. Will follow-up closely in Wound Clinic. TANIA SRINIVASAN MD Jun 11, 2017 20:13
[2017-06-11] MEDS: PREGABALIN 75 MG (LYRICA) CAP PO SCH (20:41)
[2017-06-11 21:03] VITALS: BP 195/88
[2017-06-11 22:04] VITALS: BP 165/84
[2017-06-12] VITALS: BP 175/77
[2017-06-12] MEDS: NS IV 1000 ML 1,000 ML IV SCH ×2 (01:00→11:39)
[2017-06-12] MEDS: PIPERACILLIN/TAZOBACTAM 4.5 GM/NS 100 ML IVPB IV SCH ×4 (01:05→08:05)
[2017-06-12] MEDS: inSUlin ASPART (NovoLOG) 1 UNIT/0.01 ML (CHARGE PER UNIT) SC SCH ×2 (05:35→11:39)
[2017-06-12] MEDS: PANTOPRAZOLE 40 MG (PROTONIX) TAB PO SCH (08:04)
[2017-06-12] MEDS: ATORVASTATIN 20 MG (LIPITOR) TABLET PO SCH (08:04)
[2017-06-12] MEDS: amLODIPine 5 MG (NORVASC) TAB PO SCH (08:04)
[2017-06-12] MEDS: inSUlin DETERMIR 1 UNIT/0.01 ML (LEVEMIR) CHARGE PER UNIT SQ SCH (08:04)
[2017-06-12] MEDS: ASPIRIN E.C. 81 MG (ECOTRIN) TAB PO SCH (08:04)
[2017-06-12] MEDS: CLOPIDOGREL 75 MG (PLAVIX) TABLET PO SCH (08:04)
[2017-06-12] MEDS: POVIDONE (BETADINE) 10% SOLN 240 ML BTL TOP SCH (08:05)
[2017-06-12 08:24] VITALS: BP 140/70
[2017-06-12] MEDS ORDERED: CEFT1FRO2 IV (09:22)
--- NOTE | 2017-06-12 11:46 | Discharge Summary-Hospitalist ---
Diagnosis/Chief Complaint Date of Admission Jun 07, 2017 at 09:35 Date of Discharge Discharge Date: Jun 12, 2017 Admission Diagnosis Diabetic Foot wound with underlying osteomyelitis Discharge Diagnosis SW Review: Left toe amputated yesterday by Dr Becerra. Debridement was performed. Possible DC Friday on IV abx Patient Interview: Pt is feeling well and denies experiencing pain other than neuropathy. Pt confirms PCP as Dr. Roberts. Pt states he has not seen Dr. Roberts for a while though. 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 Pt states he has not seen Dr. Lane and would like someone to look at his wound. No fever, vital signs stable, pleasant, improved, walking in room Regular rate and rhythm, clear to auscultation bilaterally Left foot in dressing Assessment: Osteomyelitis of toe status post amputation left foot on IV antibiotics Diabetes mellitus Hypertension Hyperlipidemia Plan: DC tomorrow? PICC line placement today Rocephin 1gm IV daily, duration to be determined Appreciate Lucy Lane and Mariam Scribed by Kim Huston under the direct supervision of Dr. Guardado. Notes from 06/12/17 SW Review: Pt has an appointment with Dr. Laen tomorrow and he should be obtain the wrapping supplies heneeds there. Patient Interview: Pt would like to DC today Pt denies experiencing pain recently Pt states he will having his foot wrapped before DC, then with Dr. Lane tomorrow. Pt asked about supplies for wrapping it himself over the weekend and I informed him that we will work on getting him the supplies he needs. IV abx discussed and pt will return once daily to receive these treatments. Plan: Follow up with Dr. Lane Out-pt abx Dressing supplies Finish Zosyn prior to DC Scribed by Kim Huston under the direct supervision of Dr. Guardado. (1) Osteomyelitis of left foot Status: Acute Assessment & Plan: Unsure if acute or chronic given presentation likely chronic Continue Vanc/Zosyn D #2 Consult Wound Care Cultures sent (2) Diabetic ulcer of left foot Status: Acute Assessment & Plan: Newly developed over past few days pt believe Abx as above Wound Care (3) Acute on chronic renal insufficiency Status: Acute Assessment & Plan: Improving Continue IVF trend (4) IDDM (insulin dependent diabetes mellitus) Status: Chronic Assessment & Plan: On Trusiba at home but unsure of dose Will start on Sliding Scale and convert basal insulin to our formulary Holding metformin Last a1c in November 7.6 (5) Essential (primary) hypertension Status: Chronic Assessment & Plan: Continue home meds (6) Peripheral arterial disease Status: Chronic Assessment & Plan: s/p angioplasty in November Bilateral feet with 2+ DP pulses He is unsure of anticoagulation but last cards note recommends ASA/Plavix Will continue (7) Peripheral neuropathy Status: Chronic Assessment & Plan: 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, 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 (8) Prophylactic measure Assessment & Plan: Lovenox for DVT ppx No GI ppx needed Heart Healthy/Carb Controlled diet NS at 75ml/hr Discharge Summary Discharge Physical Examination Allergies: Coded Allergies: No Known Drug Allergies (Unverified , 06/07/17) Vitals & I&Os Vital Signs Date Time Temp Pulse Resp B/P (MAP) Pulse Ox O2 Delivery O2 Flow Rate FiO2 06/12/17 08:24 98.2 57 20 140/70 99 Room Air Hospital Course Hospital course: Patient had a standard hospital course he was admitted for cellulitis and possible osteomyelitis of the foot and toe which upon workup revealed gangrenous toe that was ultimately in need of amputation which was done in an uncomplicated manner by podiatry service. Antibiotic coverage was initiated and wound care was consulted. Toe was amputated and dressings were managed by wound care service and he was deemed stable for discharge while on Rocephin antibiotic of 1 g daily for at least 2 weeks duration to be determined by wound care service and he was ready to go without any need of pain medication due to severe neuropathy complication. Labs (last 24 hrs) Laboratory Tests 06/11/17 15:50: Glucometer 174H 06/11/17 20:24: Glucometer 222H 06/12/17 05:22: Glucometer 191H 06/12/17 11:25: Glucometer 239H Microbiology 06/07/17 Blood Culture - Preliminary, Resulted Staphylococcus Aureus 06/10/17 MRSA Screen - Final, Complete MRSA not isolated 06/07/17 Gram Stain - Final, Complete 06/07/17 Wound Culture - Final, Complete Staphylococcus Aureus Staph, Coag Neg (Stock Dealer) Bacteroides Fragilis Group Corynebacterium Species Pending Labs Laboratory Tests 06/12/17 05:22: Glucometer 191 06/12/17 11:25: Glucometer 239 Discharge Home Medications: Active Scripts Active Ceftriaxone 1 gm Piggyback (Ceftriaxone Na/Dextrose,Iso) 1 Gm/50 Ml Froz.piggy 1 Gm IV DAILY 14 Days Aspirin EC (Aspirin) 81 Mg Tablet. 81 Mg PO DAILY Clopidogrel (Clopidogrel Bisulfate) 75 Mg Tablet 75 Mg PO DAILY Reported Pantoprazole Sodium 40 Mg Tablet. 40 Mg PO DAILY Amlodipine Besylate 5 Mg Tablet 5 Mg PO DAILY Metformin HCl 1,000 Mg Tablet 1,000 Mg PO BID Centrum Adults Tablet (Multivitamin/Iron/Folic Acid) 1 Each Tablet 1 Tab PO DAILY Magnesium (Magnesium Oxide) 250 Mg Tablet 250 Mg PO DAILY [place] 3 500 Softgel ([place]-3/Dha/Epa/Fish Oil) 1 Each Capsule 2 Each PO DAILY Foltanx Tablet (Methyl-B12/l-Mefolate/B6 Phos) 1 Each Tablet 1 Tab PO DAILY Tresiba Flextouch U-200 (Insulin Degludec) 200 Unit/1 Ml Insuln.pen 50 Units SQ DAILY Enalapril Maleate 20 Mg Tablet 20 Mg PO DAILY Cinnamon (Cinnamon Bark) 500 Mg Capsule 500 Mg PO DAILY Atorvastatin Calcium 20 Mg Tablet 20 Mg PO DAILY Vitamin C 500 Mg (Ascorbic Acid) 500 Mg Tablet 500 Mg PO DAILY Instructions to patient/family Please see electronic discharge instructions given to patient. Clinical Quality Measures DVT/VTE Risk/Contraindication: Risk Factor Score Per Nursin RFS Level Per Nursing on Admit: 3=High Problem Qualifiers (1) Peripheral neuropathy: Peripheral neuropathy type: polyneuropathy associated with underlying disease Qualified Codes: G63 - Polyneuropathy in diseases classified elsewhere QUE GUARDADO DO Jun 12, 2017 11:46
--- NOTE | 2017-06-27 20:33 | OPERATIVE REPORT ---
DATE OF SERVICE: 06/10/2017 SURGEON: Uvaldo Baca DPM RESIDENT CAREGIVER: None. PREOPERATIVE DIAGNOSES: 1. Osteomyelitis of the left second metatarsal and left second toe. 2. Abscess left foot. POSTOPERATIVE DIAGNOSIS: Osteomyelitis of the left second metatarsal and left second toe. PROCEDURE PERFORMED: 1. Left second ray amputation. 2. Incision and drainage left foot. ANESTHESIA: General anesthesia. HEMOSTASIS: Locally controlled. BLOOD LOSS: 50 mL. MATERIALS USED: Iodoform packing. INTRAOPERATIVE INJECTABLES: None. COMPLICATIONS: None. INDICATION FOR THE PROCEDURE: The patient is a 67-year-old male who has a history of an abscess to his left foot due to a chronic wound and now has extensive osteomyelitis and pathologic fracture of his second metatarsal head. He also has significant changes to the first ray, however, the first ray at this time clinically appears to be unaffected and most likely first ray changes are chronic at this time. The patient was made aware of the risks and benefits of the surgery as well as the alternatives to undergoing and signed consent prior to being taken back to the OR. DESCRIPTION OF PROCEDURE: Under mild sedation, the patient was brought into the OR and placed on the operating table in supine position. Following administration of general anesthesia, the left lower extremity was scrubbed, prepped and draped in an aseptic manner. Appropriate timeout was performed. The left lower extremity was identified as the surgical site. Next, two semielliptical incisions were made extending to the base of the second toe and down to the level of the metatarsal head. The semielliptical incisions were made to encompass the second toe in its entirety and was passed from the surgical field. Using a carver elevator, the soft tissues were dissected off the head of the second metatarsal and mid shaft of the second metatarsal and a sagittal saw was used to perform an osteotomy of the mid shaft of the second metatarsal and passed the head of the second metatarsal and distal one-half of the second metatarsal from the surgical field. The specimen was sent for pathological specimen. The wound was then flushed with copious amounts of sterile saline. There was approximately 5 mL of purulent drainage from the area of the wound and this was debrided. All necrotic tissue was debrided from the wound. There was no significant proximal tracking that was noted. No tunneling seen. The wound was good, healthy and bleeding to all areas of the wound at the end of the procedure. The wound was then flushed with 3 liters of copious lavage under pulse lavage and the wound was then packed with half-inch Iodoform packing and dressed with a dry sterile dressing consisting of 4x4s, Webril and Ashish wrap. The patient tolerated the procedure and anesthesia well. He was transferred from the OR to recovery with vital signs stable and neurovascular status intact to the left foot. The patient will likely need intravenous antibiotics and local wound care upon discharge. Job ID: [id number] DocumentID: [id number] Dictated Date: 06/27/2017 13:21:06 Pottery Machine Operator Date: 06/27/2017 20:32:47 Dictated By: UVALDO BACA DPM
== END 2017-06-12 12:50 | disposition home or self-care (01) | DRG 617 ==
LOC: EDUNIT# 08:27 → ER 08:28 → 4TH 09:35
PROVIDERS: ADMIT Family Medicine; ATTEND Family Medicine
PROC: 0Y6N0ZB Detachment at Left Foot, Partial 2nd Ray, Open Approach (ICD-10-PCS; 2017-06-10)
PROC: 0Y6S0Z0 Detachment at Left 2nd Toe, Complete, Open Approach (ICD-10-PCS; principal; 2017-06-10 06:17)
DX: E11.69 Type 2 diabetes mellitus with other specified complication (principal); M86.172 Other acute osteomyelitis, left ankle and foot; M86.472 Chronic osteomyelitis with draining sinus, left ankle and foot; L03.116 Cellulitis of left lower limb; L03.032 Cellulitis of left toe; E11.621 Type 2 diabetes mellitus with foot ulcer; L97.523 Non-pressure chronic ulcer of other part of left foot with necrosis of muscle; E11.51 Type 2 diabetes mellitus with diabetic peripheral angiopathy without gangrene; E11.42 Type 2 diabetes mellitus with diabetic polyneuropathy; Z79.4 Long term (current) use of insulin; Z87.891 Personal history of nicotine dependence; I12.9 Hypertensive chronic kidney disease with stage 1 through stage 4 chronic kidney disease, or unspecified chronic kidney disease; N18.9 Chronic kidney disease, unspecified; E78.00 Pure hypercholesterolemia, unspecified; M19.91 Primary osteoarthritis, unspecified site
CPT/HCPCS: 36415; 73630; 80048; 80053; 80202; 82962; 83036; 83605; 85007; 85025; 85027; 85610; 85652; 85730; 86141; 87040; 87070; 87077; 87081; 87186; 87205; 88305; 96365

== ENCOUNTER → 2017-06-13 | Outpatient (CLI) | payer MEDICARE, BC ==
[~2017-06-13] MED LIST changes: +AMLO5TAB2 PO; +CEFT1FRO2 IV; +MAGN250T13 PO; +MULT-1067 PO; +OMEG-141 PO; +PANT40TA3 PO
== END ==
LOC: WOUNDCARE 12:02
PROVIDERS: ATTEND Surgery
DX: E11.621 Type 2 diabetes mellitus with foot ulcer (principal); E11.42 Type 2 diabetes mellitus with diabetic polyneuropathy; L97.523 Non-pressure chronic ulcer of other part of left foot with necrosis of muscle
CPT/HCPCS: 11042

== ENCOUNTER → 2017-06-13 | Outpatient (CLI) | payer MEDICARE, BC ==
[~2017-06-13] MED LIST changes: +NS (IVPB) 50 ML ONE; +cefTRIAXone 1 GM (ROCEPHIN) VIAL ONE
[2017-06-13 15:10] LABS: ALANINE AMINOTRANSFERASE 57 U/L (0-55); ANION GAP 8 MMOL/L (5-14); ASPARTATE AMINO TRANSFERASE 19 U/L (5-34); BILIRUBIN,TOTAL 0.3 MG/DL (0.1-1.0); BLOOD UREA NITROGEN 16 MG/DL (7-18); BUN/CREATININE RATIO 15; CALCIUM 9.3 MG/DL (8.5-10.1); CARBON DIOXIDE 24 MMOL/L (21-32); CHLORIDE 104 MMOL/L (98-107); GFR ESTIMATED > 60; GLUCOSE 227 MG/DL (70-105); POTASSIUM 4.2 MMOL/L (3.6-5.0); SODIUM 136 MMOL/L (135-145); TOTAL PROTEIN 7.1 GM/DL (6.4-8.2)
== END ==
LOC: SDC 14:01
PROVIDERS: ATTEND Surgery
DX: E11.621 Type 2 diabetes mellitus with foot ulcer (principal); L97.523 Non-pressure chronic ulcer of other part of left foot with necrosis of muscle; L97.522 Non-pressure chronic ulcer of other part of left foot with fat layer exposed; I70.245 Atherosclerosis of native arteries of left leg with ulceration of other part of foot; M65.072 Abscess of tendon sheath, left ankle and foot; E11.42 Type 2 diabetes mellitus with diabetic polyneuropathy; Z89.421 Acquired absence of other right toe(s)
CPT/HCPCS: 36415; 80053; 83036; 96365

== ENCOUNTER → 2017-06-20 | Outpatient (CLI) | payer MEDICARE, BC ==
[~2017-06-20] MED LIST changes: -NS (IVPB) 50 ML ONE; -cefTRIAXone 1 GM (ROCEPHIN) VIAL ONE
== END ==
LOC: WOUNDCARE 10:12
PROVIDERS: ATTEND Surgery
DX: E11.621 Type 2 diabetes mellitus with foot ulcer (principal); L97.523 Non-pressure chronic ulcer of other part of left foot with necrosis of muscle; E11.42 Type 2 diabetes mellitus with diabetic polyneuropathy; L97.522 Non-pressure chronic ulcer of other part of left foot with fat layer exposed; M65.072 Abscess of tendon sheath, left ankle and foot; Z89.422 Acquired absence of other left toe(s)
CPT/HCPCS: 11042

== ENCOUNTER 2017-06-26 06:52 | Outpatient (RCR) | payer MEDICARE, BC ==
[2017-06-13 14:20] VITALS: BP 179/84
[2017-06-14 10:05] VITALS: BP 143/73
[2017-06-15 09:17] VITALS: BP 143/89
[2017-06-16 08:15] VITALS: BP 126/65
[2017-06-17] MEDS: CATHETER FLUSH 10 ML SYR IV PRN ×2 (07:39→08:05)
[2017-06-17 08:15] VITALS: BP 129/68
[2017-06-18] MEDS: CATHETER FLUSH 10 ML SYR IV PRN ×2 (07:25→07:55)
[2017-06-18 08:00] VITALS: BP 118/68
[2017-06-19] MEDS: CATHETER FLUSH 10 ML SYR IV PRN ×2 (08:00→08:32)
[2017-06-19 08:35] VITALS: BP 127/70
[2017-06-20] MEDS: CATHETER FLUSH 10 ML SYR IV PRN ×2 (07:24→07:50)
[2017-06-20 08:00] VITALS: BP 147/69
[2017-06-21] MEDS: CATHETER FLUSH 10 ML SYR IV PRN ×2 (08:27→08:50)
[2017-06-21 09:00] VITALS: BP 136/70
[2017-06-22] MEDS: CATHETER FLUSH 10 ML SYR IV PRN ×2 (08:14→08:40)
[2017-06-22 08:50] VITALS: BP 131/72
[2017-06-23] MEDS: CATHETER FLUSH 10 ML SYR IV PRN ×2 (07:29→07:54)
[2017-06-23 07:32] LABS: MEAN PLATELET VOLUME 10.2 FL (7.4-10.4); RED BLOOD COUNT 4.4 10^6/uL (4.35-5.85); RED CELL DISTRIBUTION WIDTH 15.4 % (10.0-14.5)
[2017-06-23 07:54] VITALS: BP 136/62
[2017-06-23 07:55] LABS: ALBUMIN 3.4 GM/DL (3.2-4.5); BILIRUBIN,TOTAL 0.2 MG/DL (0.1-1.0); CALCIUM 9.3 MG/DL (8.5-10.1); CREATININE SERUM 1.32 MG/DL (0.60-1.30); POTASSIUM 5.1 MMOL/L (3.6-5.0); TOTAL PROTEIN 7.2 GM/DL (6.4-8.2)
[2017-06-24] MEDS: CATHETER FLUSH 10 ML SYR IV PRN (07:05)
[2017-06-24 07:32] VITALS: BP 142/75
[2017-06-25 07:25] VITALS: BP 147/83
[~2017-06-26] VITALS: Ht 177.8 cm; Wt 97.5 kg
== END 2017-06-28 | disposition home or self-care (01) ==
LOC: SDC 06:52
PROVIDERS: ATTEND Internal Medicine
DX: M86.9 Osteomyelitis, unspecified (principal)
CPT/HCPCS: 36415; 36592; 80053; 85027; 96365; 99211

== ENCOUNTER → 2017-06-27 | Outpatient (CLI) | payer MEDICARE, BC | LOC: WOUNDCARE 07:59 | PROVIDERS: ATTEND Surgery | DX: E11.621 Type 2 diabetes mellitus with foot ulcer (principal); E11.42 Type 2 diabetes mellitus with diabetic polyneuropathy; L97.522 Non-pressure chronic ulcer of other part of left foot with fat layer exposed; M65.072 Abscess of tendon sheath, left ankle and foot; Z89.422 Acquired absence of other left toe(s) | CPT/HCPCS: 11042; 87070; 87075; 87205 ==

== ENCOUNTER 2017-07-01 12:59 | Outpatient (RCR) | payer MEDICARE, BC ==
[~2017-07-01] VITALS: Ht 177.8 cm; Wt 97.5 kg
[2017-07-01 13:50] VITALS: BP 162/79
== END 2017-09-29 | disposition home or self-care (01) ==
LOC: SDC 12:59
PROVIDERS: ATTEND Internal Medicine
DX: M86.9 Osteomyelitis, unspecified (principal)
CPT/HCPCS: 99212

== ENCOUNTER → 2017-07-04 | Outpatient (CLI) | payer MEDICARE, BC | LOC: WOUNDCARE 08:06 | PROVIDERS: ATTEND Surgery | DX: E11.621 Type 2 diabetes mellitus with foot ulcer (principal); L97.522 Non-pressure chronic ulcer of other part of left foot with fat layer exposed; E11.42 Type 2 diabetes mellitus with diabetic polyneuropathy; M65.072 Abscess of tendon sheath, left ankle and foot; Z89.422 Acquired absence of other left toe(s) | CPT/HCPCS: 11042 ==

== ENCOUNTER → 2017-07-08 | Outpatient (CLI) | payer MEDICARE, BC | LOC: CARD 12:12 | PROVIDERS: ATTEND Internal Medicine Cardiovascular Disease | DX: I73.9 Peripheral vascular disease, unspecified (principal); I10 Essential (primary) hypertension; E78.2 Mixed hyperlipidemia; E11.9 Type 2 diabetes mellitus without complications; E66.9 Obesity, unspecified | CPT/HCPCS: 93306 ==

== ENCOUNTER → 2017-07-11 | Outpatient (CLI) | payer MEDICARE, BC | LOC: WOUNDCARE 07:58 | PROVIDERS: ATTEND Nurse Practitioner | DX: E11.621 Type 2 diabetes mellitus with foot ulcer (principal); L97.522 Non-pressure chronic ulcer of other part of left foot with fat layer exposed; L97.521 Non-pressure chronic ulcer of other part of left foot limited to breakdown of skin; E11.42 Type 2 diabetes mellitus with diabetic polyneuropathy; M65.072 Abscess of tendon sheath, left ankle and foot; Z89.422 Acquired absence of other left toe(s) | CPT/HCPCS: 11042; 97597 ==

== ENCOUNTER → 2017-07-14 | Outpatient (CLI) | payer MEDICARE, BC ==
[~2017-07-14] MED LIST changes: +CATHETER FLUSH 10 ML SYR IV PRN; +REGADENOSON 0.4 MG/5 ML SYR (LEXISCAN) IV ONE
[2017-07-14 09:10] VITALS: BP 137/70
--- NOTE | 2017-07-15 07:50 | STRESS TEST ---
DATE OF SERVICE: 07/14/2017 LEXISCAN MYOVIEW STRESS TEST REPORT REFERRING PHYSICIAN: Dr. Roberts. Baseline heart rate is 55. Baseline blood pressure 137/70. Baseline EKG is sinus rhythm with no ischemic changes. In summary, the patient was injected with 10.95 mCi of technetium-99 Myoview and the resting images were obtained. Then, the patient received 0.4 mg of Lexiscan followed by 31.3 mCi of technetium-99 Myoview. Throughout the test, there were no EKG changes. The resting and stress images were reviewed and compared in the short axis, horizontal long axis and vertical long axis views. Review of the images showed diaphragmatic attenuation with fixed uptake involving the mid to apical inferior wall and inferoseptum with no significant ischemia. SSS is 4. SDS is 0. TID value 1.04. On the gated images, the left ventricle appeared to be normal size with normal contractility, calculated ejection fraction 58%. CONCLUSION: 1. The patient tolerated Lexiscan well. 2. Diaphragmatic attenuation with typical male pattern with no significant ischemia or infarction on SPECT images. 3. Normal left ventricular size with normal contractility, calculated ejection fraction 58%. Job ID: [id number] DocumentID: [id number] Dictated Date: 07/14/2017 16:18:46 Night Assistant Date: 07/15/2017 00:51:05 Dictated By: BRITTNEY FERRERA MD
== END ==
LOC: CARD 06:54
PROVIDERS: ATTEND Internal Medicine Cardiovascular Disease
DX: I73.9 Peripheral vascular disease, unspecified (principal); I10 Essential (primary) hypertension; E78.2 Mixed hyperlipidemia; E11.9 Type 2 diabetes mellitus without complications; E66.9 Obesity, unspecified
CPT/HCPCS: 78452; 93017

== ENCOUNTER → 2017-07-16 | Outpatient (CLI) | payer MEDICARE, BC ==
[~2017-07-16] MED LIST changes: -CATHETER FLUSH 10 ML SYR IV PRN; -REGADENOSON 0.4 MG/5 ML SYR (LEXISCAN) IV ONE
== END ==
LOC: WOUNDCARE 08:11
PROVIDERS: ATTEND Surgery
DX: E11.621 Type 2 diabetes mellitus with foot ulcer (principal); L97.522 Non-pressure chronic ulcer of other part of left foot with fat layer exposed; E11.42 Type 2 diabetes mellitus with diabetic polyneuropathy; M65.072 Abscess of tendon sheath, left ankle and foot; Z89.422 Acquired absence of other left toe(s)
CPT/HCPCS: 11042

== ENCOUNTER → 2017-07-25 | Outpatient (CLI) | payer MEDICARE, BC | LOC: WOUNDCARE 08:10 | PROVIDERS: ATTEND Surgery | DX: E11.621 Type 2 diabetes mellitus with foot ulcer (principal); E11.42 Type 2 diabetes mellitus with diabetic polyneuropathy; L97.522 Non-pressure chronic ulcer of other part of left foot with fat layer exposed; M65.072 Abscess of tendon sheath, left ankle and foot; Z89.422 Acquired absence of other left toe(s) | CPT/HCPCS: 99212 ==

== ENCOUNTER → 2018-02-04 | Outpatient (CLI) | payer MEDICARE, BC ==
[~2018-02-04] MED LIST changes: +METF10002 PO
[2018-02-04 07:21] LABS: ALBUMIN 4.4 GM/DL (3.2-4.5); BILIRUBIN,TOTAL 0.5 MG/DL (0.1-1.0); CALCIUM 9.9 MG/DL (8.5-10.1); CREATININE SERUM 1.36 MG/DL (0.60-1.30); POTASSIUM 4.8 MMOL/L (3.6-5.0); TOTAL PROTEIN 7.6 GM/DL (6.4-8.2)
== END ==
LOC: LAB 06:49
PROVIDERS: ATTEND Physician Assistant
DX: I10 Essential (primary) hypertension (principal); E78.2 Mixed hyperlipidemia; E11.9 Type 2 diabetes mellitus without complications
CPT/HCPCS: 36415; 80053; 80061

== ENCOUNTER → 2018-09-10 | Outpatient (CLI) | payer MEDICARE, BC ==
[~2018-09-10] MED LIST changes: -AMLO5TAB2 PO; +AMLO5TAB7 PO; +METF-399 PO; -METF10002 PO
== END ==
LOC: WOUNDCARE 08:57
PROVIDERS: ATTEND Orthopaedic Surgery Hand Surgery
DX: L97.522 Non-pressure chronic ulcer of other part of left foot with fat layer exposed (principal); L97.512 Non-pressure chronic ulcer of other part of right foot with fat layer exposed; E11.621 Type 2 diabetes mellitus with foot ulcer; I73.9 Peripheral vascular disease, unspecified; L03.115 Cellulitis of right lower limb
CPT/HCPCS: 11042; 87070; 87077; 87186; 87205

== ENCOUNTER → 2018-09-17 | Outpatient (CLI) | payer MEDICARE, BC | LOC: WOUNDCARE 08:14 | PROVIDERS: ATTEND Orthopaedic Surgery Hand Surgery | DX: L97.522 Non-pressure chronic ulcer of other part of left foot with fat layer exposed (principal); L97.512 Non-pressure chronic ulcer of other part of right foot with fat layer exposed; E11.621 Type 2 diabetes mellitus with foot ulcer; I73.9 Peripheral vascular disease, unspecified; L03.115 Cellulitis of right lower limb | CPT/HCPCS: 11042; 17250 ==

== ENCOUNTER → 2018-10-02 | Outpatient (CLI) | payer MEDICARE, BC ==
--- NOTE | 2018-10-02 11:22 | Diagnostic Imaging Report ---
Left foot at 1021 hours. INDICATION: Chronic ulcer. 3 views were obtained. FINDINGS: In the interval since the prior exam of 06/07/2017, the phalanges of the second digit and the distal half of the second metatarsal has been amputated. As noted on the prior exam, there is expansion of the head of the first metatarsal with mixed areas of sclerosis and lucency. The malalignment of the proximal phalanx and the head of the first metatarsal seen previously is again evident and no different as well. There is no clear evidence for bony destruction to suggest osteomyelitis. Even so, if further imaging is desired, then MRI would be recommended. The third, fourth and fifth rays are generally unremarkable. As noted on the prior exam, there is a small calcaneal spur and a small calcific density in the soft tissues adjacent to the calcaneal spur. IMPRESSION: 1. In the interval since the prior exam, there has been interval amputation of a portion of the second ray. 2. 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 There is no acute bony abnormality identified, however. Recommendations as above. Dictated by: Dictated on workstation # [id number]
== END ==
LOC: LAB 09:33
PROVIDERS: ATTEND Surgery
DX: E11.621 Type 2 diabetes mellitus with foot ulcer (principal); L97.522 Non-pressure chronic ulcer of other part of left foot with fat layer exposed
CPT/HCPCS: 36415; 73630; 83036

== ENCOUNTER → 2018-10-02 | Outpatient (CLI) | payer MEDICARE, BC | LOC: WOUNDCARE 08:18 | PROVIDERS: ATTEND Surgery | DX: E11.621 Type 2 diabetes mellitus with foot ulcer (principal); L97.522 Non-pressure chronic ulcer of other part of left foot with fat layer exposed; E11.42 Type 2 diabetes mellitus with diabetic polyneuropathy; L97.512 Non-pressure chronic ulcer of other part of right foot with fat layer exposed | CPT/HCPCS: 11042; 87070; 87075; 87077; 87186; 87205 ==

== ENCOUNTER → 2018-10-09 | Outpatient (CLI) | payer MEDICARE, BC | LOC: WOUNDCARE 08:04 | PROVIDERS: ATTEND Surgery | DX: E11.621 Type 2 diabetes mellitus with foot ulcer (principal); L97.522 Non-pressure chronic ulcer of other part of left foot with fat layer exposed; E11.42 Type 2 diabetes mellitus with diabetic polyneuropathy; L97.512 Non-pressure chronic ulcer of other part of right foot with fat layer exposed | CPT/HCPCS: 11042 ==

== ENCOUNTER → 2018-10-16 | Outpatient (CLI) | payer MEDICARE, BC | LOC: WOUNDCARE 07:59 | PROVIDERS: ATTEND Surgery | DX: E11.621 Type 2 diabetes mellitus with foot ulcer (principal); L97.522 Non-pressure chronic ulcer of other part of left foot with fat layer exposed; E11.42 Type 2 diabetes mellitus with diabetic polyneuropathy; L97.512 Non-pressure chronic ulcer of other part of right foot with fat layer exposed | CPT/HCPCS: 11042 ==

== ENCOUNTER → 2018-10-21 | Outpatient (CLI) | payer MEDICARE, BC ==
[~2018-10-21] MED LIST changes: -AMLO5TAB7 PO; +AMLO5TAB9 PO
== END ==
LOC: WOUNDCARE 09:26
PROVIDERS: ATTEND Surgery
DX: E11.621 Type 2 diabetes mellitus with foot ulcer (principal); L97.522 Non-pressure chronic ulcer of other part of left foot with fat layer exposed; L97.512 Non-pressure chronic ulcer of other part of right foot with fat layer exposed; E11.42 Type 2 diabetes mellitus with diabetic polyneuropathy
CPT/HCPCS: 11042

== ENCOUNTER → 2018-10-30 | Outpatient (CLI) | payer MEDICARE, BC | LOC: WOUNDCARE 07:58 | PROVIDERS: ATTEND Surgery | DX: E11.621 Type 2 diabetes mellitus with foot ulcer (principal); E11.42 Type 2 diabetes mellitus with diabetic polyneuropathy; L97.522 Non-pressure chronic ulcer of other part of left foot with fat layer exposed; L97.512 Non-pressure chronic ulcer of other part of right foot with fat layer exposed; L97.511 Non-pressure chronic ulcer of other part of right foot limited to breakdown of skin | CPT/HCPCS: 11042 ==

== ENCOUNTER → 2018-11-06 | Outpatient (CLI) | payer MEDICARE, BC | LOC: WOUNDCARE 08:00 | PROVIDERS: ATTEND Surgery | DX: E11.621 Type 2 diabetes mellitus with foot ulcer (principal); E11.42 Type 2 diabetes mellitus with diabetic polyneuropathy; L97.522 Non-pressure chronic ulcer of other part of left foot with fat layer exposed | CPT/HCPCS: 29445 ==

== ENCOUNTER → 2018-11-13 | Outpatient (CLI) | payer MEDICARE, BC | LOC: WOUNDCARE 08:02 | PROVIDERS: ATTEND Surgery | DX: E11.621 Type 2 diabetes mellitus with foot ulcer (principal); E11.42 Type 2 diabetes mellitus with diabetic polyneuropathy; L97.522 Non-pressure chronic ulcer of other part of left foot with fat layer exposed | CPT/HCPCS: 99212 ==

== ENCOUNTER → 2018-12-08 | Outpatient (CLI) | payer MEDICARE, BC | LOC: WOUNDCARE 13:58 | PROVIDERS: ATTEND Surgery | DX: E11.621 Type 2 diabetes mellitus with foot ulcer (principal); E11.42 Type 2 diabetes mellitus with diabetic polyneuropathy; L97.522 Non-pressure chronic ulcer of other part of left foot with fat layer exposed | CPT/HCPCS: 11042; 87070; 87077; 87205 ==

== ENCOUNTER → 2018-12-14 | Outpatient (CLI) | payer MEDICARE, BC | LOC: WOUNDCARE 08:10 | PROVIDERS: ATTEND Surgery | DX: E11.621 Type 2 diabetes mellitus with foot ulcer (principal); L97.522 Non-pressure chronic ulcer of other part of left foot with fat layer exposed; E11.42 Type 2 diabetes mellitus with diabetic polyneuropathy | CPT/HCPCS: 11042 ==

== ENCOUNTER → 2018-12-16 | Outpatient (CLI) | payer MEDICARE, BC ==
[2018-12-16 13:11] LABS: BASOPHILS # (AUTO) 0.1 10^3/uL (0.0-0.1); BASOPHILS % (AUTO) 1 % (0-10); EOSINOPHILS # (AUTO) 0.7 10^3/uL (0.0-0.3); EOSINOPHILS % (AUTO) 9 % (0-10); HEMATOCRIT 37 % (40-54); HEMOGLOBIN 12.2 G/DL (13.3-17.7); LYMPHOCYTES # (AUTO) 2.1 X 10^3 (1.0-4.0); LYMPHOCYTES % (AUTO) 27 % (12-44); MEAN CORPUSCULAR HEMOGLOBIN 27 PG (25-34); MEAN CORPUSCULAR HGB CONC 33 G/DL (32-36); MEAN CORPUSCULAR VOLUME 83 FL (80-99); MEAN PLATELET VOLUME 9.9 FL (7.4-10.4); MONOCYTES # (AUTO) 0.8 X 10^3 (0.0-1.0); MONOCYTES % (AUTO) 11 % (0-12); NEUTROPHILS % (AUTO) 52 % (42-75); PLATELET COUNT 314 10^3/uL (130-400); RED CELL DISTRIBUTION WIDTH 15.2 % (10.0-14.5); WHITE BLOOD COUNT 7.7 10^3/uL (4.3-11.0)
[2018-12-16 13:30] LABS: ALBUMIN 3.9 GM/DL (3.2-4.5); BILIRUBIN,TOTAL 0.2 MG/DL (0.1-1.0); CALCIUM 9.3 MG/DL (8.5-10.1); CREATININE SERUM 1.39 MG/DL (0.60-1.30); POTASSIUM 5.2 MMOL/L (3.6-5.0); TOTAL PROTEIN 7.2 GM/DL (6.4-8.2)
== END ==
LOC: LAB 12:30
PROVIDERS: ATTEND Surgery
DX: E11.621 Type 2 diabetes mellitus with foot ulcer (principal); L97.522 Non-pressure chronic ulcer of other part of left foot with fat layer exposed; E11.42 Type 2 diabetes mellitus with diabetic polyneuropathy
CPT/HCPCS: 36415; 80053; 85025

== ENCOUNTER → 2018-12-16 | Outpatient (CLI) | payer MEDICARE, BC | LOC: WOUNDCARE 13:58 | PROVIDERS: ATTEND Surgery | DX: E11.621 Type 2 diabetes mellitus with foot ulcer (principal); L97.522 Non-pressure chronic ulcer of other part of left foot with fat layer exposed; E11.42 Type 2 diabetes mellitus with diabetic polyneuropathy | CPT/HCPCS: 29445 ==

== ENCOUNTER → 2018-12-22 | Outpatient (CLI) | payer MEDICARE, BC | LOC: WOUNDCARE 13:54 | PROVIDERS: ATTEND Surgery | DX: E11.621 Type 2 diabetes mellitus with foot ulcer (principal); E11.42 Type 2 diabetes mellitus with diabetic polyneuropathy; L97.522 Non-pressure chronic ulcer of other part of left foot with fat layer exposed | CPT/HCPCS: 11042 ==

== ENCOUNTER → 2018-12-29 | Outpatient (CLI) | payer MEDICARE, BC | LOC: WOUNDCARE 13:27 | PROVIDERS: ATTEND Surgery | DX: E11.621 Type 2 diabetes mellitus with foot ulcer (principal); E11.42 Type 2 diabetes mellitus with diabetic polyneuropathy; L97.522 Non-pressure chronic ulcer of other part of left foot with fat layer exposed ==

== ENCOUNTER → 2019-01-05 | Outpatient (CLI) | payer MEDICARE, BC | LOC: WOUNDCARE 13:33 | PROVIDERS: ATTEND Surgery | DX: E11.621 Type 2 diabetes mellitus with foot ulcer (principal); E11.42 Type 2 diabetes mellitus with diabetic polyneuropathy; L97.522 Non-pressure chronic ulcer of other part of left foot with fat layer exposed ==

== ENCOUNTER → 2019-01-19 | Outpatient (CLI) | payer MEDICARE, BC | LOC: WOUNDCARE 12:43 | PROVIDERS: ATTEND Surgery | DX: E11.621 Type 2 diabetes mellitus with foot ulcer (principal); E11.42 Type 2 diabetes mellitus with diabetic polyneuropathy; L97.522 Non-pressure chronic ulcer of other part of left foot with fat layer exposed ==

== ENCOUNTER → 2019-01-25 | Outpatient (CLI) | payer MEDICARE, BC | LOC: WOUNDCARE 08:43 | PROVIDERS: ATTEND Surgery | DX: E11.621 Type 2 diabetes mellitus with foot ulcer (principal); L97.522 Non-pressure chronic ulcer of other part of left foot with fat layer exposed; E11.42 Type 2 diabetes mellitus with diabetic polyneuropathy | CPT/HCPCS: 11042 ==

== ENCOUNTER → 2019-02-01 | Outpatient (CLI) | payer MEDICARE, BC | LOC: WOUNDCARE 08:43 | PROVIDERS: ATTEND Surgery | DX: E11.621 Type 2 diabetes mellitus with foot ulcer (principal); L97.522 Non-pressure chronic ulcer of other part of left foot with fat layer exposed; E11.42 Type 2 diabetes mellitus with diabetic polyneuropathy | CPT/HCPCS: 11042; 87070; 87077; 87205 ==

== ENCOUNTER → 2019-02-08 | Outpatient (CLI) | payer MEDICARE, BC | LOC: WOUNDCARE 08:09 | PROVIDERS: ATTEND Surgery | DX: E11.621 Type 2 diabetes mellitus with foot ulcer (principal); L97.522 Non-pressure chronic ulcer of other part of left foot with fat layer exposed; E11.42 Type 2 diabetes mellitus with diabetic polyneuropathy | CPT/HCPCS: 11042 ==

== ENCOUNTER → 2019-05-18 | Outpatient (CLI) | payer MEDICARE, BC | LOC: LAB 09:32 | PROVIDERS: ATTEND Physician Assistant | DX: I10 Essential (primary) hypertension (principal); E78.2 Mixed hyperlipidemia; E11.51 Type 2 diabetes mellitus with diabetic peripheral angiopathy without gangrene; I73.9 Peripheral vascular disease, unspecified ==

== ENCOUNTER 2019-12-06 05:38 | Outpatient (CLI) | payer MEDICARE, BC ==
[~2019-12-06] VITALS: Ht 175.3 cm; Wt 95.5 kg
[~2019-12-06 05:38] MED LIST changes: +OMEP40CA27 PO
[2019-12-06] MEDS ORDERED: CLOP75TA28 PO (09:16)
[2019-12-06] MEDS ORDERED: GABA-490 PO (09:16)
[2019-12-06] MEDS ORDERED: ASCO-281 PO (09:16)
[2019-12-06] MEDS ORDERED: ASPI-983 PO (09:16)
[2019-12-06] MEDS ORDERED: ATOR20TA66 PO (09:16)
== END 2019-12-06 09:21 | disposition home or self-care (01) ==
LOC: PREOP 05:38
PROVIDERS: ATTEND Urology
DX: Z01.818 Encounter for other preprocedural examination (principal)

== ENCOUNTER → 2019-12-07 | Outpatient (CLI) | payer MEDICARE, BC ==
[~2019-12-07] MED LIST changes: +ASCO-281 PO; +CIPR-225 PO; +GABA-490 PO
== END ==
LOC: CARD 12:05
PROVIDERS: ATTEND Physician Assistant
DX: I11.9 Hypertensive heart disease without heart failure (principal); E11.51 Type 2 diabetes mellitus with diabetic peripheral angiopathy without gangrene; E78.2 Mixed hyperlipidemia; E66.9 Obesity, unspecified; I73.9 Peripheral vascular disease, unspecified
CPT/HCPCS: 93306

== ENCOUNTER 2019-12-08 05:45 | Day surgery (SDC) | payer MEDICARE, BC ==
[2019-12-08] VITALS (10 sets, daily range): BP systolic 76–156; BP diastolic 42–80
[~2019-12-08] VITALS: Ht 175.3 cm; Wt 95.5 kg
[~2019-12-08 05:45] MED LIST changes: -CIPR-225 PO
[2019-12-08] MEDS ORDERED: proPOfol 200 MG/20 ML (DIPRIVAN) VIAL IV ONE (06:44)
[2019-12-08] MEDS ORDERED: LIDOCAINE PF 2% 5 ML (XYLOCAINE) VIAL ONE (06:44)
[2019-12-08] MEDS ORDERED: SEVOFLURANE (ULTANE) 15 ML INHAL SOLN ONE (06:44)
[2019-12-08] MEDS ORDERED: ONDANSETRON 4 MG/2 ML (SDV) Z0FRAN ONE (06:44)
[2019-12-08] MEDS ORDERED: cefTRIAXone FOR IV USE 1,000 MG in WATER (STERILE) FOR INJECTION 10 ML IV ONE (06:45)
[2019-12-08] MEDS ORDERED: fentaNYL INJECTION 100 MCG/2 ML AMP ONE (06:45)
[2019-12-08] MEDS ORDERED: MIDAZOLAM 2 MG/2 ML (VERSED) VIAL ONE (06:45)
[2019-12-08] MEDS ORDERED: ROCURONIUM 10 MG/ML 5 ML SYRINGE IV ONE (06:45)
[2019-12-08] MEDS: LACTATED RINGERS 1,000 ML IV PRN ×2 (06:54→08:51)
[2019-12-08] MEDS ORDERED: CATHETER FLUSH 10 ML SYR IV PRN (07:00)
--- NOTE | 2019-12-08 08:32 | Progress Note-Pre Operative ---
Pre-Operative Progress Note H&P Reviewed The H&P was reviewed, patient examined and no changes noted. Date Seen by Provider: Dec 08, 2019 Time Seen by Provider: 08:32 Date H&P Reviewed: Dec 08, 2019 Time H&P Reviewed: 08:32 Pre-Operative Diagnosis: PROSTATISM AND ABNORMAL PROSTATE MACI GAGE MD Dec 08, 2019 08:32
--- NOTE | 2019-12-08 08:34 | Progress Note-Post Operative ---
Post-Operative Progess Note Surgeon (s)/Director Of Slot Operations (s) Surgeon MACI GAGE MD Director Of Slot Operations: NONE Pre-Operative Diagnosis PROSTATISM AND ABNORMAL PROSTATE Post-Operative Diagnosis SAME Procedure & Operative Findings Date of Procedure 12/08/19 Procedure Performed/Findings CYSTOSCOPY AND PROSTATE BIOPSIES Anesthesia Type GENERAL Estimated Blood Loss Estimated blood loss (mL): NONE Specimens/Packing Specimens Removed PROSTATE TISSUES Packing: NONE MACI GAGE MD Dec 08, 2019 08:34
--- NOTE | 2019-12-08 08:36 | Discharge Inst-Urology ---
Discharge Inst-Urology Reconcile Patient Problems Problems Reviewed?: Yes Final Diagnosis PROSTATISM AND ABNORMAL PROSTATE Patient Instructions/Follow Up Plan/Assessment/Instructions Please make appointment to been seen in office in 2 weeks. Rest for 48 hours Hold ASA and Plavix for 72 hours and resume if no bleeding Increase oral fluids for 48 hours and then as needed. Diet as tolerated. If questions or concerns contact your physician Or seek help at emergency department. MACI GAGE MD Dec 08, 2019 08:36
[2019-12-08] MEDS ORDERED: CIPR-225 PO (10:11)
--- NOTE | 2019-12-08 10:35 | NUR ---
Velma BRUMFIELD CRNA, IN TO TALK TO THE PATIENT ABOUT HIS LOWERED HEART RATE. HEART RATE RUNNING BETWEEN 37-41.
--- NOTE | 2019-12-08 10:50 | NUR ---
HEART RATE RUNNING BETWEEN 50-55.
--- NOTE | 2019-12-08 12:51 | Anesthesia-General Post-Op ---
General Patient Condition Mental Status/LOC: Same as Preop Cardiovascular: Satisfactory Nausea/Vomiting: Absent Respiratory: Satisfactory Pain: Controlled Complications: Absent Post Op Complications Complications None Follow Up Care/Instructions Patient Instructions None needed. Anesthesia/Patient Condition Patient Condition Patient is doing well, no complaints, stable vital signs, no apparent adverse anesthesia problems. No complications reported per nursing. DWIGHT ARVIZU CRNA Dec 08, 2019 12:51
--- NOTE | 2019-12-08 13:24 | OPERATIVE REPORT ---
DATE OF SERVICE: 12/08/2019 PREOPERATIVE DIAGNOSES: Prostatism and abnormal rectal exam or prostate. POSTOPERATIVE DIAGNOSES: Prostatism and abnormal rectal exam or prostate. OPERATION PERFORMED: Cystoscopy and transrectal needle biopsy of the prostate. SURGEON: Jasbir Gage MD ANESTHESIA: General. COMPLICATIONS: None. DESCRIPTION OF PROCEDURE: Under satisfactory general anesthesia, the patient in lithotomy position, genitalia were prepped and draped in the usual sterile fashion. A 23-Mongolian cystoscope was introduced under vision. There was a meatal stenosis, which responded to dilatation with the [place] sound #24. The anterior urethra was normal. The prostate was enlarged in lateral lobe meeting in the midline causing bladder neck obstruction. Bladder was entered, revealed some trabeculation . No foreign body, bladder tumor or stone visualized. Ureteric orifices normal in shape, size and configuration with clear efflux. Bladder was evacuated and cystoscope was removed after confirming cystoscopy with the 70-degree lens. Then using the biopsy gun, I obtained 6 biopsies, 3 from each lobe of the prostate with no bleeding. The patient tolerated the procedure and anesthesia well, and was sent to recovery room in stable condition. Job ID: [id number] DocumentID: [id number] Dictated Date: 12/08/2019 09:22:24 Electronic Equipment Installer Date: 12/08/2019 13:24:13 Dictated By: JASBIR GAGE MD
== END 2019-12-08 11:10 | disposition home or self-care (01) ==
LOC: SDC 05:45
PROVIDERS: ATTEND Urology
DX: N40.0 Benign prostatic hyperplasia without lower urinary tract symptoms (principal); N35.911 Unspecified urethral stricture, male, meatal; E11.42 Type 2 diabetes mellitus with diabetic polyneuropathy; K21.9 Gastro-esophageal reflux disease without esophagitis; I73.9 Peripheral vascular disease, unspecified; I10 Essential (primary) hypertension; Z80.0 Family history of malignant neoplasm of digestive organs; Z79.899 Other long term (current) drug therapy; Z79.891 Long term (current) use of opiate analgesic; Z79.84 Long term (current) use of oral hypoglycemic drugs
CPT/HCPCS: 82962; 87081

== ENCOUNTER → 2019-12-15 | Outpatient (CLI) | payer MEDICARE, BC ==
[~2019-12-15] VITALS: Ht 178 cm; Wt 97.0 kg
[~2019-12-15] MED LIST changes: +CATHETER FLUSH 10 ML SYR IV PRN; +CIPR-225 PO; +REGADENOSON 0.4 MG/5 ML SYR (LEXISCAN) IV ONE
--- NOTE | 2019-12-15 15:43 | STRESS TEST ---
DATE OF SERVICE: 12/15/2019 LEXISCAN MYOVIEW STRESS TEST REPORT REFERRING PHYSICIAN: Dr. Keny Carrion. Baseline heart rate is 48 and baseline blood pressure 146/73. Baseline EKG is sinus rhythm with no ischemic changes. In summary, the patient was injected with 10.29 mCi of technetium-99 Myoview and the resting images were obtained. Then, the patient received 0.4 mg of Lexiscan followed by 30.5 mCi of technetium-99 Myoview. Throughout the test, there were no EKG changes. The resting and stress images were reviewed and compared in the short axis, horizontal long axis, and vertical long axis views. Review of the images showed diaphragmatic attenuation with typical male pattern. No significant ischemia or infarction. SSS is 5, SDS 3 and TID value 1.05. No gated images were done. CONCLUSION: 1. The patient tolerated the Lexiscan well. 2. Typical male pattern with no significant ischemia or infarction on SPECT images. 3. No gated images were done. Job ID: [id number] DocumentID: [id number] Dictated Date: 12/15/2019 14:36:56 Nurse Coordinator Date: 12/15/2019 15:42:22 Dictated By: BRITTNEY FERRERA MD
== END ==
LOC: CARD 07:09
PROVIDERS: ATTEND Physician Assistant
DX: I10 Essential (primary) hypertension (principal); E11.9 Type 2 diabetes mellitus without complications; E78.2 Mixed hyperlipidemia; E66.9 Obesity, unspecified; E11.51 Type 2 diabetes mellitus with diabetic peripheral angiopathy without gangrene

== ENCOUNTER → 2020-10-02 | Outpatient (CLI) | payer MEDICARE, BC ==
[~2020-10-02] MED LIST changes: +AMLO-250 PO; -AMLO5TAB9 PO; +ASPI-1238 PO; -ASPI-983 PO; -CATHETER FLUSH 10 ML SYR IV PRN; -ENAL20TA PO; +ENAL20TA16 PO; -PANT40TA3 PO; +PANT40TA52 PO; -REGADENOSON 0.4 MG/5 ML SYR (LEXISCAN) IV ONE
--- NOTE | 2020-10-02 10:00 | Diagnostic Imaging Report ---
INDICATION: Foot trauma. Pain. Limited range of motion. COMPARISON: 04/20/2014 FINDINGS: 3 radiographic views of the right foot were obtained. Postsurgical changes of previous surgical fusion of the first metatarsophalangeal joint space are identified. Orthopedic hardware appears well seated. There is no evidence of hardware loosening or periprosthetic fracture. No unexpected radiopaque foreign bodies are seen. No acute fracture or dislocation of right foot is identified. Remaining osseous structures are intact. Joint spaces are otherwise maintained. IMPRESSION: 1. No acute fracture or dislocation of the right foot. 2. Postsurgical changes of interval surgical fusion of the first metatarsophalangeal joint space. Dictated by: Dictated on workstation # [id number]
== END ==
LOC: RAD 09:02
PROVIDERS: ATTEND Internal Medicine
DX: S99.921A Unspecified injury of right foot, initial encounter (principal); Z98.1 Arthrodesis status
CPT/HCPCS: 73630

== ENCOUNTER → 2020-11-02 | Outpatient (CLI) | payer MEDICARE, BC ==
--- NOTE | 2020-11-02 15:25 | Diagnostic Imaging Report ---
EXAMINATION: Whole-body nuclear medicine bone scan. INDICATION: Prostate cancer. The study was performed following administration of 26.8 mCi of 99 technetium MDP. Anterior and posterior whole body images were obtained as well as spot lateral views of the calvarium and the thorax. There are no prior nuclear medicine bone scans available for comparison. There is a focal area of increased hypermetabolic activity in the proximal left femur. The previous left femur exam of 09/28/2014 did note a roughly 5 cm mildly sclerotic lesion in this region. I suspect that the abnormal uptake on this exam corresponds to that lesion. This lesion does not seem to have changed significantly in size since the prior exam and it may well represent a benign process. Even so, MRI would be recommended for further study. There is also slightly increased activity along the lateral aspect of the proximal most portion of the right tibia. I suspect this is more likely due to degenerative disease than to neoplasm. There is no other hypermetabolic activity to indicate the presence of malignancy. There is intense activity in the right great toe. Reportedly the patient suffered an injury to this area on 09/21/2020. The plain film examination of the right foot performed on 10/02/2020 revealed postsurgical changes of the first metatarsophalangeal joint. I suspect this accounts for the abnormal uptake seen on this exam. Both kidneys do show excretion of the radiotracer. IMPRESSION: 1. The area of increased activity involving the proximal left femur is most likely related to the bony lesion seen in this region on the prior exam from 2013. I suspect this is a benign process but MRI would be recommended to better characterize this finding. 2. There is no other hypermetabolic activity to suggest the presence of malignancy. 3. The abnormal uptake involving the right tibia is probably degenerative in nature while the abnormal uptake in the right great toe is felt to be a sequela of the patient's prior trauma and surgery. Dictated by: Dictated on workstation # [id number]
== END ==
LOC: CARD 11:16
PROVIDERS: ATTEND Orthopaedic Surgery
DX: C61 Malignant neoplasm of prostate (principal); D16.22 Benign neoplasm of long bones of left lower limb
CPT/HCPCS: 78306; A9503

== ENCOUNTER → 2021-02-16 | Outpatient (CLI) | payer MEDICARE, BC ==
--- NOTE | 2021-02-16 13:10 | Diagnostic Imaging Report ---
INDICATION: Infection of foot. COMPARISON: 10/02/2020 FINDINGS: 3 radiographic views of the right foot were obtained. Patient is status post previous surgical fusion of the 1st metatarsophalangeal joint space. Metal sideplate and screws are seen traversing the dorsal margins of the joint space and adjacent osseous structures. There does appear to be fracture of one of the more proximal anchor screws. There is otherwise no evidence of loosening. There is suggestion of soft tissue emphysema and potentially radiopaque debris within the plantar soft tissues of the great toe overlying the distal phalanx. This is only well visualized on the lateral view. No acute fracture or dislocation is seen. Osseous structures otherwise intact. Joint spaces are maintained. IMPRESSION: 1. Soft tissue emphysema and possible debris within the plantar soft tissues of the great toe. Clinical correlation is recommended. 2. No distinct underlying osteolytic process is identified, although osteomyelitis cannot be excluded based on radiograph's alone. If there is concern for osteomyelitis, MRI is recommended. If MRI is contraindicated, triple phase bone scan could be performed. 3. Postsurgical changes of previous surgical fusion of the 1st metatarsal phalangeal joint space. Again, there does appear to be fracture of one or more proximal screws. Dictated by: Dictated on workstation # [id number]
== END ==
LOC: LAB 11:43
PROVIDERS: ATTEND Surgery
DX: E11.621 Type 2 diabetes mellitus with foot ulcer (principal)
CPT/HCPCS: 73630

== ENCOUNTER → 2021-02-16 | Outpatient (CLI) | payer MEDICARE, BC | LOC: WOUNDCARE 10:01 | PROVIDERS: ATTEND Surgery | DX: E11.621 Type 2 diabetes mellitus with foot ulcer (principal); E11.42 Type 2 diabetes mellitus with diabetic polyneuropathy; L97.513 Non-pressure chronic ulcer of other part of right foot with necrosis of muscle | CPT/HCPCS: 11043; A6260; G0463 ==

== ENCOUNTER → 2021-02-22 | Outpatient (CLI) | payer MEDICARE, BC | LOC: WOUNDCARE 13:21 | PROVIDERS: ATTEND Surgery | DX: E11.621 Type 2 diabetes mellitus with foot ulcer (principal); E11.42 Type 2 diabetes mellitus with diabetic polyneuropathy; L97.516 Non-pressure chronic ulcer of other part of right foot with bone involvement without evidence of necrosis; E11.52 Type 2 diabetes mellitus with diabetic peripheral angiopathy with gangrene | CPT/HCPCS: 11042; G0463 ==

== ENCOUNTER → 2021-03-02 | Outpatient (CLI) | payer MEDICARE, BC | LOC: WOUNDCARE 10:46 | PROVIDERS: ATTEND Orthopaedic Surgery Hand Surgery | DX: E11.621 Type 2 diabetes mellitus with foot ulcer (principal); E11.42 Type 2 diabetes mellitus with diabetic polyneuropathy; L97.516 Non-pressure chronic ulcer of other part of right foot with bone involvement without evidence of necrosis; E11.52 Type 2 diabetes mellitus with diabetic peripheral angiopathy with gangrene | CPT/HCPCS: 11042; G0463 ==

== ENCOUNTER → 2021-03-06 | Outpatient (CLI) | payer MEDICARE, BC | LOC: WOUNDCARE 14:25 | PROVIDERS: ATTEND Surgery | DX: E11.621 Type 2 diabetes mellitus with foot ulcer (principal); I96 Gangrene, not elsewhere classified; E11.42 Type 2 diabetes mellitus with diabetic polyneuropathy; L97.516 Non-pressure chronic ulcer of other part of right foot with bone involvement without evidence of necrosis | CPT/HCPCS: 11042; G0463 ==

== ENCOUNTER → 2021-03-13 | Outpatient (CLI) | payer MEDICARE, BC | LOC: WOUNDCARE 08:56 | PROVIDERS: ATTEND Surgery | DX: E11.621 Type 2 diabetes mellitus with foot ulcer (principal); I96 Gangrene, not elsewhere classified; L97.516 Non-pressure chronic ulcer of other part of right foot with bone involvement without evidence of necrosis; E11.42 Type 2 diabetes mellitus with diabetic polyneuropathy | CPT/HCPCS: 11042; G0463 ==

== ENCOUNTER → 2021-03-20 | Outpatient (CLI) | payer MEDICARE, BC ==
[~2021-03-20] MED LIST changes: -OMEP40CA27 PO; +OMEP40CA6 PO
== END ==
LOC: WOUNDCARE 08:43
PROVIDERS: ATTEND Surgery
DX: E11.621 Type 2 diabetes mellitus with foot ulcer (principal); E11.42 Type 2 diabetes mellitus with diabetic polyneuropathy; I96 Gangrene, not elsewhere classified; L97.516 Non-pressure chronic ulcer of other part of right foot with bone involvement without evidence of necrosis; M86.471 Chronic osteomyelitis with draining sinus, right ankle and foot
CPT/HCPCS: 11042; G0463

== ENCOUNTER → 2021-03-27 | Outpatient (CLI) | payer MEDICARE, BC | LOC: WOUNDCARE 08:45 | PROVIDERS: ATTEND Surgery | DX: E11.621 Type 2 diabetes mellitus with foot ulcer (principal); E11.42 Type 2 diabetes mellitus with diabetic polyneuropathy; L97.516 Non-pressure chronic ulcer of other part of right foot with bone involvement without evidence of necrosis; M86.471 Chronic osteomyelitis with draining sinus, right ankle and foot; E11.52 Type 2 diabetes mellitus with diabetic peripheral angiopathy with gangrene | CPT/HCPCS: 11042; G0463 ==

== ENCOUNTER → 2022-01-15 | Outpatient (CLI) | payer MEDICARE, BC ==
[~2022-01-15] MED LIST changes: -DOXY100C2 PO; +DOXY100C5 PO
== END ==
LOC: CARD 11:29
PROVIDERS: ATTEND Physician Assistant
DX: I11.9 Hypertensive heart disease without heart failure (principal)
CPT/HCPCS: 93306

== ENCOUNTER → 2022-02-06 | Outpatient (CLI) | payer MEDICARE, BC ==
[~2022-02-06] VITALS: Ht 177 cm; Wt 97.0 kg
[~2022-02-06] MED LIST changes: +CATHETER FLUSH 10 ML SYR IVP PRN; +REGADENOSON 0.4 MG/5 ML SYR (LEXISCAN) IV ONE
[2022-02-06 09:40] VITALS: BP 167/76
--- NOTE | 2022-02-06 14:36 | Cardiology Stress Test Report ---
Stress Test Report Date of Procedure/Referring: Date of Procedure: February 06, 2022 Marisela Pak Admitting Physician Keny Carrion MD Indications: CAD Baseline Heart Rate: 56 Baseline Blood Pressure: Blood Pressure Systolic: 167 Blood Pressure Diastolic: 76 Baseline Vitals Vital Signs Date Time Temp Pulse Resp B/P (MAP) Pulse Ox O2 Delivery O2 Flow Rate FiO2 02/06/22 09:40 56 18 167/76 (106) 97 Baseline EKG: Baseline EKG: NSR Summary After explaining the procedure to the patient, he signed a consent and then brought to the stress nuclear laboratory. Patient received 0.4 mg Lexiscan for stress test, ECG, heart rate and blood pressure were monitored continuously. Resting and stress dose of radio tracer were injected, imaging was acquired and reviewed in short axis, horizontal long axis and vertical long axis views. TID: 1.11 SSS: 6 SDS: 4 EF: 59 1. Patient tolerated Lexiscan well 2. Diaphragmatic attenuation with mild reversible ischemia involving the mid to apical inferolateral wall and true apex. 3. Normal left ventricular size, EF 59% BRITTNEY FERRERA MD February 06, 2022 14:36
== END ==
LOC: CARD 08:15
PROVIDERS: ATTEND Physician Assistant
DX: I65.23 Occlusion and stenosis of bilateral carotid arteries (principal); I25.10 Atherosclerotic heart disease of native coronary artery without angina pectoris
CPT/HCPCS: 78452; 93017; A9502

== ENCOUNTER → 2022-02-06 | Outpatient (CLI) | payer MEDICARE, BC ==
[~2022-02-06] MED LIST changes: -CATHETER FLUSH 10 ML SYR IVP PRN; -REGADENOSON 0.4 MG/5 ML SYR (LEXISCAN) IV ONE
[2022-02-06 07:24] LABS: ABSOLUTE RETIC # 51 10e9/uL (24-90); BASOPHILS # (AUTO) 0.1 10^3/uL (0.0-0.1); BASOPHILS % (AUTO) 1 % (0-10); EOSINOPHILS # (AUTO) 0.9 10^3/uL (0.0-0.3); EOSINOPHILS % (AUTO) 11 % (0-10); HEMATOCRIT 37 % (40-54); HEMOGLOBIN 11.8 g/dL (13.3-17.7); LYMPHOCYTES # (AUTO) 1.7 10^3/uL (1.0-4.0); LYMPHOCYTES % (AUTO) 22 % (12-44); MEAN CORPUSCULAR HEMOGLOBIN 26 pg (25-34); MEAN CORPUSCULAR HGB CONC 32 g/dL (32-36); MEAN CORPUSCULAR VOLUME 83 fL (80-99); MEAN PLATELET VOLUME 9.8 fL (9.0-12.2); MONOCYTES # (AUTO) 0.7 10^3/uL (0.0-1.0); MONOCYTES % (AUTO) 9 % (0-12); NEUTROPHILS # (AUTO) 4.1 10^3/uL (1.8-7.8); NEUTROPHILS % (AUTO) 56 % (42-75); PLATELET COUNT 279 10^3/uL (130-400); RETICULOCYTE % 1.14 % (0.50-2.40); WHITE BLOOD COUNT 7.5 10^3/uL (4.3-11.0)
[2022-02-06 07:39] LABS: POTASSIUM 4.9 MMOL/L (3.6-5.0)
[2022-02-06 07:40] LABS: CALCIUM 9.5 MG/DL (8.5-10.1)
[2022-02-06 07:44] LABS: CREATININE SERUM 1.67 MG/DL (0.60-1.30)
[2022-02-06 08:06] LABS: ANISOCYTOSIS SLIGHT; BASOPHILS % (MANUAL) 1 %; ELLIPT/OVALOCYTES SLIGHT; EOSINOPHILS % (MANUAL) 10 %; LYMPHOCYTES % (MANUAL) 17 %; MONOCYTES % (MANUAL) 7 %; NEUTROPHILS % (MANUAL) 65 %
== END ==
LOC: LAB 07:10
PROVIDERS: ATTEND Internal Medicine
DX: D64.9 Anemia, unspecified (principal); N19 Unspecified kidney failure
CPT/HCPCS: 36415; 80048; 85007; 85027; 85045; 85055

== ENCOUNTER → 2022-02-13 | Day surgery (SDC) | payer MEDICARE, BC ==
[~2022-02-13] VITALS: Ht 177.8 cm; Wt 97.9 kg
[~2022-02-13] MED LIST changes: +ADENOSINE 6 MG/2 ML (ADENOCARD) VIAL IV ONE; +ADENOSINE 90 MG/30 ML (ADENOSCAN) VIAL IV ONE; +ATROPINE INJECTION 1 MG/10 ML SYR (ABBOTT) ONE; +CLOP75TA69 PO; +EPTIFIBATIDE BOLUS 20 ML IV ONE; +EPTIFIBATIDE DRIP 100 ML IV ONE; +HEParin (CATH LAB) 2,000 ML IV ONE; +HEParin 1000 UNIT/ML (10ML VIAL) FOR BOLUS ONE; +LIDOCAINE 1% INJ 20 ML VIAL ONE; +MECO10005 PO; +MIDAZOLAM 2 MG/2 ML (VERSED) VIAL ONE; +MIDAZOLAM 5 MG/5 ML (VERSED) VIAL ONE; +NF-VITD400 PO; +NS (IVPB) 0 ML ONE; +NS (IVPB) 250 ML ONE; +NS IV 1000 ML 1,000 ML IV SCH; +NS IV 1000 ML 1,000 ML ONE; +OMEG100032 PO; +PATIENT MAY USE OWN MEDS, ALL PO SCH; +fentaNYL INJ 100 MCG/2 ML AMP ONE; +morphine INJ 4 MG/ML 1 ML (VIAL/SYRINGE) ONE; +niCARdipine IV FOR DRIP 50 MG KIT ONE
[2022-02-13 12:21] VITALS: BP 143/71
[2022-02-13 12:26] LABS: HEMATOCRIT 37 % (40-54); MEAN CORPUSCULAR HEMOGLOBIN 26 pg (25-34); MEAN CORPUSCULAR HGB CONC 32 g/dL (32-36); MEAN CORPUSCULAR VOLUME 82 fL (80-99); MEAN PLATELET VOLUME 10.1 fL (9.0-12.2); PLATELET COUNT 291 10^3/uL (130-400); WHITE BLOOD COUNT 7.7 10^3/uL (4.3-11.0)
--- NOTE | 2022-02-13 12:31 | Diagnostic Imaging Report ---
INDICATION: Abnormal stress test, hypertension. Peripheral artery disease. TECHNIQUE: Single view chest 12:13 PM. CORRELATION STUDY: 11/27/2016 FINDINGS: Heart size enlarged and there is presence of pulmonary vascular congestion and edema, adversely changed from prior. Likely soft tissue attenuation over the lung latham. Component of mild edema not excluded. No donita infiltrate. Curvilinear density over left hilum is present perhaps overlying foreign body. IMPRESSION: 1. Cardiac enlargement with component pulmonary vascular congestion likely pulmonary edema, adversely changed from prior. Dictated by: Dictated on workstation # [id number]
[2022-02-13 12:46] LABS: PROTHROMBIN TIME PATIENT 13.2 SEC (12.2-14.7)
[2022-02-13 12:56] LABS: BILIRUBIN,TOTAL 0.3 MG/DL (0.1-1.0); CALCIUM 9.5 MG/DL (8.5-10.1); CREATININE SERUM 1.52 MG/DL (0.60-1.30); POTASSIUM 5.2 MMOL/L (3.6-5.0); TOTAL PROTEIN 7.2 GM/DL (6.4-8.2)
--- NOTE | 2022-02-13 15:48 | Discharge Inst-Post CATH ---
Discharge Inst-CATH/EP Problems Reviewed?: Yes Post Cardiac Cath/EP D/C Inst Follow Up/Plan Transfer to [facility] Appointment with Dr. Ortiz's office in 2 to 4 weeks <b>CARDIAC CATH/EP PROCEDURE DISCHARGE INSTRUCTIONS</b> ACTIVITY * Go Home directly and rest. * Limit activity of the leg (or wrist if it was used) for 7 days including aerobics, swimming, jogging, bicycling, etc. * Restrict stair-climbing for 7 days if possible, if not, climb up with your non-cath leg, then bring together on the same step. * Avoid lifting, pushing, pulling or excessive movement of the affected extremity for 7 days. * Customary sexual activity may be resumed after 2 days-use caution not to use a position that strains or causes pain to the affected extremity. * No driving for 24 hours. * NO SMOKING. * Avoid straining for bowel movements for 7 days. * Gentle walking on level ground is allowed. * Returning to work will depend on the type of procedure and the results. Your doctor will discuss this with you. CALL YOUR DOCTOR FOR ANY OF THE FOLLOWING: *If bleeding from the puncture site occurs- Apply gentle pressure to site with clean cloth and call your doctor or EMS. * If a knot or lump forms under the skin, increases in size, or causes pain. * If bruising appears to be worsening or moving further down your leg instead of disappearing. * Temperature above 101 F. CARE OF YOUR GROIN INCISION; * Bruising or purple discoloration of the skin near the puncture site is common. * You may shower only, no bathtub bathing for 5 days. Be careful to avoid slipping as your leg may feel stiff. * If a closure device was used on your femoral artery, please see the attached guide regarding care of the device and your leg. * Leave dressing on FOR 24 hours. CARE OF YOUR WRIST INCISION; * Bruising or purple discoloration of the skin near the puncture site is common. * You may shower. * DO NOT submerge wrist. * Leave dressing on FOR 24 hours. BRITTNEY ORTIZ MD February 13, 2022 15:48
--- NOTE | 2022-02-13 15:55 | Cardiac Cath Report ---
Cardiac Cath Report Physician (s)/Nail Technician Teacher (s) Physician BRITTNEY FERRERA MD Pre-Procedure Diagnosis Pre-Procedure Diagnosis: Coronary artery disease Post-Procedure Note Procedure Start Date: February 13, 2022 Name of Procedure: Left heart catheterization FFR to the right coronary artery Stenting to the right coronary artery Findings/Procedure Note PROCEDURE NOTE: 72 years old gentleman with history of coronary artery disease, peripheral arterial disease, hypertension hyperlipidemia, had an abnormal stress test, scheduled for cardiac catheterization possible PTCA. After explaining the procedure to the patient, all pros and cons were explained, all questions were answered. The patient signed the consent and then he was placed on the cardiac catheterization laboratory. Groin was prepped SL fashion local anesthesia was used. Sheath placed in the right femoral artery. Rosalia right and left catheter were used to access the coronary system. Rosalia right catheter was prolapsed to the left ventricular cavity, pressure was measured. Pullback LV to aorta was done. Patient received multiple doses of heparin, a total of 6000 units of heparin, Rosalia right guide with sideholes was advanced then pressure wire was advanced to the distal right coronary artery Baseline FFR in the right coronary artery was 0.82. I attempted to advance a stent to the distal right coronary artery without success. The stent continue to get stuck at the midportion lesion I proceeded with balloon using 2.5 balloon with multiple inflation to the mid lesion. Small dissection was noted. Tried the stent again without success. I advanced the maile wire BMW wire distally and tried to advance with the maile wire without success. I advanced 2.0 balloon to the distal right coronary artery and attempted to advance a guide liner to the distal right coronary artery and it c ontinues to get stuck at the midportion. I used noncompliant 2.5 balloon and did multiple inflation up to 20 judit and the lesion was resistant. There was more significant dissection. I attempted to use multiple different stent without success finally I advanced 2.5 x 20 mm stent to the proximal edge of the dissection and I was unable to advance it distally I decided to open the balloon hoping that it will capture the ostium of the dissection which will help limiting the expansion of the dissection. Did po st stent deployment multiple balloon and attempted to advance a stent again without success. I attempted to advance a wire for support and I was unable to advance it. Patient had transient episode of no reflow, responded immediately for balloon angioplasty. He is currently on Integrilin drip. I contacted Dr. Kelley and Dr. Andujar in [place] and I will arrange to transfer by air for possible attempt for intervention or urgent bypass surgery. At the end of the procedure the sheath was removed. Sheath was sutured in place FINDINGS: Hemodynamics LV Aorta ANATOMY: Left Main has moderate distal stenosis Left Anterior Descending has moderate stenosis at the ostium and the proximal LAD Left Circumflex has mild to moderate disease nonobstructive disease Right Coronary Artery has severe stenosis at the midportion and distally. Complex intervention as described above, deployment of 2.5 x 20 mm aquilino point stent expanded to 2.75 mm in the proximal right coronary artery followed by severe stenosis without the ability of advancing a stent through that lesion. Dissection was noted in the mid right coronary artery. LV Gram was not done, pressure was measured CONCLUSION: 1. Severe stenosis in the mid and distal right coronary artery, balloon angioplasty with multiple different balloons and noncompliant balloon without success in reducing the severe stenosis in the midportion. Inability to advance a stent. Dissection was noted and the stent was deployed at the proximal edge of the stent without the ability to advance the stent to the midportion using aquilino point stent 2.5 x 20 mm expanded to 2.75 mm 2. Moderate stenosis of the distal left main and proximal and ostial LAD. DISCUSSION AND RECOMMENDATION: Patient was started on heparin and Integrilin, arrangement to transfer the patient to a tertiary care center for evaluation for possible bypass surgery or high risk intervention Hospital course Patient was admitted for elective cardiac catheterization intervention was complicated, complex anatomy. He will be transferred to a tertiary care center for evaluation for possible high risk intervention versus bypass surgery Final diagnoses Coronary artery disease Peripheral arterial disease Hypertension Hyperlipidemia Anesthesia Type: Conscious Sedation Estimated blood loss (mL): 40 ml Contrast Amount: 170 ml Total Radiation Dose: 2988 mGy Post-Procedure Diagnosis Post-operative diagnosis: Final diagnosis Coronary artery disease Peripheral arterial disease Hypertension Hyperlipidemia BRITTNEY FERRERA MD February 13, 2022 15:55
== END ==
LOC: CATH 11:44
PROVIDERS: ATTEND Internal Medicine Cardiovascular Disease
DX: I25.10 Atherosclerotic heart disease of native coronary artery without angina pectoris (principal); I73.9 Peripheral vascular disease, unspecified; I10 Essential (primary) hypertension; I49.5 Sick sinus syndrome; E78.2 Mixed hyperlipidemia; E11.9 Type 2 diabetes mellitus without complications; I65.23 Occlusion and stenosis of bilateral carotid arteries; C61 Malignant neoplasm of prostate; K21.9 Gastro-esophageal reflux disease without esophagitis; Z79.899 Other long term (current) drug therapy; Z87.891 Personal history of nicotine dependence; Z79.84 Long term (current) use of oral hypoglycemic drugs; Z79.4 Long term (current) use of insulin
CPT/HCPCS: 71045; 80053; 80061; 85027; 85610; 85730; 87081; 93005; 93458; C1725 ×4; C1769 ×3; C1874 ×2; C1887 ×2; C1894; C9600; 36415

== ENCOUNTER → 2022-02-21 | Outpatient (CLI) | payer MEDICARE, BC ==
[~2022-02-21] MED LIST changes: -ADENOSINE 6 MG/2 ML (ADENOCARD) VIAL IV ONE; -ADENOSINE 90 MG/30 ML (ADENOSCAN) VIAL IV ONE; -ATROPINE INJECTION 1 MG/10 ML SYR (ABBOTT) ONE; -EPTIFIBATIDE BOLUS 20 ML IV ONE; -EPTIFIBATIDE DRIP 100 ML IV ONE; -HEParin (CATH LAB) 2,000 ML IV ONE; -HEParin 1000 UNIT/ML (10ML VIAL) FOR BOLUS ONE; -LIDOCAINE 1% INJ 20 ML VIAL ONE; -MIDAZOLAM 2 MG/2 ML (VERSED) VIAL ONE; -MIDAZOLAM 5 MG/5 ML (VERSED) VIAL ONE; -NS (IVPB) 0 ML ONE; -NS (IVPB) 250 ML ONE; -NS IV 1000 ML 1,000 ML IV SCH; -NS IV 1000 ML 1,000 ML ONE; -PATIENT MAY USE OWN MEDS, ALL PO SCH; -fentaNYL INJ 100 MCG/2 ML AMP ONE; -morphine INJ 4 MG/ML 1 ML (VIAL/SYRINGE) ONE; -niCARdipine IV FOR DRIP 50 MG KIT ONE
--- NOTE | 2022-02-21 17:12 | Diagnostic Imaging Report ---
HISTORY: Right leg pain COMPARISON: None TECHNIQUE: Grayscale, color Doppler and spectral Doppler ultrasound was performed of the arterial structures in the right lower extremity FINDINGS: The right common femoral artery has a triphasic waveform and measures 130 cm/s. The common femoral vein appears patent. No pseudoaneurysm is seen. There is edema in the soft tissues superiorly. There appears to be an irregular anechoic fluid collection in the soft tissues superior to the common femoral artery, may represent a small hematoma measuring up to 1.7 cm in greatest dimension. There is another hypoechoic structure with some internal vascularity which measures 3.9 x 0.8 x 3.1 cm in size, most compatible with a prominent lymph node. IMPRESSION: 1. The common femoral artery and common femoral vein are patent. There is no pseudoaneurysm. 2. Small fluid collection superior to the common femoral artery, may be a small hematoma or edema. 3. Hypoechoic structure medial to the common femoral artery likely represents a prominent lymph node, may be reactive. Dictated by: Dictated on workstation # [id number]
== END ==
LOC: RAD 14:00
DX: M79.604 Pain in right leg (principal); I25.10 Atherosclerotic heart disease of native coronary artery without angina pectoris; R60.9 Edema, unspecified
CPT/HCPCS: 93926

== ENCOUNTER → 2022-05-09 | Outpatient (CLI) | payer MEDICARE, BC ==
[~2022-05-09] MED LIST changes: +ASCO-262 PO; +ATOR40TA70 PO; +ERGO400C PO; +FERR325T24 PO; +INSU100I32 SQ; +METO50TA7 PO; +MULT-1136 PO; +OMG1KC PO; +RIVA20TA PO; +VITAMIN B12 1000 MCG PO
== END ==
LOC: LABNPT 09:37
PROVIDERS: ATTEND Internal Medicine Cardiovascular Disease
DX: Z01.89 Encounter for other specified special examinations (principal); Z20.822 Contact with and (suspected) exposure to COVID-19
CPT/HCPCS: 87636

== ENCOUNTER 2022-05-10 09:00 | Day surgery (SDC) | payer MEDICARE, BC ==
[~2022-05-10] VITALS: Ht 177.8 cm; Wt 95.6 kg
[2022-05-10] VITALS (8 sets, daily range): BP systolic 97–141; BP diastolic 50–91
[2022-05-10 07:31] LABS: HEMATOCRIT 34 % (40-54); HEMOGLOBIN 10.7 g/dL (13.3-17.7); MEAN CORPUSCULAR HEMOGLOBIN 28 pg (25-34); MEAN CORPUSCULAR HGB CONC 32 g/dL (32-36); MEAN CORPUSCULAR VOLUME 86 fL (80-99); MEAN PLATELET VOLUME 9.9 fL (9.0-12.2); PLATELET COUNT 250 10^3/uL (130-400); WHITE BLOOD COUNT 7.7 10^3/uL (4.3-11.0)
[2022-05-10 07:44] LABS: INR 0.9 (0.8-1.4)
[2022-05-10 07:48] LABS: ALBUMIN 3.7 GM/DL (3.2-4.5); BILIRUBIN,TOTAL 0.3 MG/DL (0.1-1.0); CALCIUM 9.1 MG/DL (8.5-10.1); CREATININE SERUM 1.32 MG/DL (0.60-1.30); POTASSIUM 4.4 MMOL/L (3.6-5.0); TOTAL PROTEIN 6.3 GM/DL (6.4-8.2)
--- NOTE | 2022-05-10 08:16 | Diagnostic Imaging Report ---
INDICATION: Atrial flutter. TECHNIQUE: Single view chest 7:16 AM. CORRELATION STUDY: 02/13/2022 FINDINGS: Heart size borderline enlarged. Vasculature overall within normal limits. Mildly prominent interstitial opacities at both lung bases left greater than right. Remaining lung latham otherwise clear. Partial visualization of cervical spinal fixation hardware. IMPRESSION: 1. Minimal interstitial prominence of both lung bases left greater than right. May be chronic changes of the lung parenchyma with possibility of a mild edema or atypical type infection not excluded. Dictated by: Dictated on workstation # [id number]
--- NOTE | 2022-05-10 08:54 | Cardiac Procedure Note-CS/ASA ---
Pre-Procedure Note Pre-Op Procedure Note Date of Available H&P: May 09, 2022 Date H&P Reviewed: May 10, 2022 Time H&P Reviewed: 08:53 History & Physical: H&P Reviewed, Patient Examed, No changes noted Pre-Operative Diagnosis: Coronary artery disease Conscious Sedation Pre-Proced Time 08:53 ASA Score 3 For ASA 3 and 4: Consider anesthesia and medical clearance. Also, for patients with a history of failed moderate sedation consider anesthesia. Airway Lungs Heart ASA score ASA 1: a normal healthy patient ASA 2: a patient with a mild systemic disease (mid diabetes, controlled hypertension, obesity x ASA 3: a patient with a severe systemic disease that limits activity (angina, COPD, prior Myocardial infarction) ASA 4: a patient with an incapacitating disease that is a constant threat to life (CHF, renal failure) ASA 5: a moribund patient not expected to survive 24 hrs. (ruptured aneurysm) ASA 6: a declared brain- patient whose organs are being harvested. For emergent operations, add the letter E after the classification Mallampati Classification Grade 3 Sedation Plan Analgesia, Amnesia, Plan communicated to team members, Discussed options with patient/fam, Discussed risks with patient/fam The patient is an appropriate candidate to undergo the planned procedure, sedation, and anesthesia. The patient immediately re-assessed prior to indication. BRITTNEY FERRERA MD May 10, 2022 08:53
[~2022-05-10 09:00] MED LIST changes: +CATHETER FLUSH 10 ML SYR IV ONE; +LIDOCAINE 2% VISCOUS 15 ML UDC ONE; +LIDOCAINE 2% VISCOUS 15 ML UDC PO ONE; +NS IV 1000 ML 1,000 ML IV ONE; +NS IV 1000 ML 1,000 ML ONE; +proPOfol 200 MG/20 ML (DIPRIVAN) VIAL IV ONE
--- NOTE | 2022-05-10 09:05 | Cardioversion ---
Cardioversion PROCEDURE PHYSICIAN: Brittney Ortiz DATE OF PROCEDURE: 05/10/22 DIRECT EXTERNAL ELECTRICAL CARDIOVERSION: Indications: Atrial flutter Preoperative diagnoses: Atrial flutter Postoperative diagnosis: Sinus rhythm, Successful Electrical Cardioversion Anesthesia: By Anesthesia services Complications: None Specimen: None Contrast: 0 Flouroscopy: none Procedure Details: The patient was brought the landscape laborer after informed consent was taken, all the risks and complications were explained including the risk of stroke. Electrical cardioversion was carried out with anesthesia support with propofol. 200 joules of synchronized shock was delivered through external patches which promptly restored sinus rhythm. The patient tolerated the procedure well. Conclusions: Successful electrical cardioversion and terminating atrial fibrillation/flutter Final Diagnosis: Atrial flutter Palpitation Hypertension Hyperlipidemia BRITTNEY ORTIZ MD May 10, 2022 09:05
--- NOTE | 2022-05-10 09:10 | Discharge Inst-Post CATH ---
Discharge Inst-CATH/EP Problems Reviewed?: Yes Post Cardiac Cath/EP D/C Inst Follow Up/Plan Appointment with Dr. rOtiz's office in 1 to 2 weeks <b>CARDIAC CATH/EP PROCEDURE DISCHARGE INSTRUCTIONS</b> ACTIVITY * Go Home directly and rest. * Limit activity of the leg (or wrist if it was used) for 7 days including aer obics, swimming, jogging, bicycling, etc. * Restrict stair-climbing for 7 days if possible, if not, climb up with your non-cath leg, then bring together on the same step. * Avoid lifting, pushing, pulling or excessive movement of the affected extremi ty for 7 days. * Customary sexual activity may be resumed after 2 days-use caution not to use a position that strains or causes pain to the affected extremity. * No driving for 24 hours. * NO SMOKING. * Avoid straining for bowel movements for 7 days. * Gentle walking on level ground is allowed. * Returning to work will depend on the type of procedure and the results. Your doctor will discuss this with you. CALL YOUR DOCTOR FOR ANY OF THE FOLLOWING: *If bleeding from the puncture site occurs- Apply gentle pressure to site with clean cloth and call your doctor or EMS. * If a knot or lump forms under the skin, increases in size, or causes pain. * If bruising appears to be worsening or moving further down your leg instead of disappearing. * Temperature above 101 F. CARE OF YOUR GROIN INCISION; * Bruising or purple discoloration of the skin near the puncture site is common. * You may shower only, no bathtub bathing for 5 days. Be careful to avoid slipping as your leg may feel stiff. * If a closure device was used on your femoral artery, please see the attached guide regarding care of the device and your leg. * Leave dressing on FOR 24 hours. CARE OF YOUR WRIST INCISION; * Bruising or purple discoloration of the skin near the puncture site is common. * You may shower. * DO NOT submerge wrist. * Leave dressing on FOR 24 hours. BRITTNEY ORTIZ MD May 10, 2022 09:10
== END 2022-05-10 10:07 | disposition home or self-care (01) ==
LOC: CATH 09:00
PROVIDERS: ATTEND Internal Medicine Cardiovascular Disease
DX: I48.92 Unspecified atrial flutter (principal); I10 Essential (primary) hypertension; E78.5 Hyperlipidemia, unspecified; I34.0 Nonrheumatic mitral (valve) insufficiency
CPT/HCPCS: 36415; 71045; 80053; 85027; 85610; 85730; 87081; 92960; 93005; 93312

== ENCOUNTER 2022-07-19 09:30 | Day surgery (SDC) | payer MEDICARE, BC ==
[~2022-07-19] VITALS: Ht 175.3 cm; Wt 94.0 kg
[2022-07-19] VITALS (11 sets, daily range): BP systolic 114–156; BP diastolic 67–86
[2022-07-19 08:00] LABS: HEMATOCRIT 37 % (40-54); HEMOGLOBIN 11.9 g/dL (13.3-17.7); MEAN CORPUSCULAR HEMOGLOBIN 29 pg (25-34); MEAN CORPUSCULAR HGB CONC 33 g/dL (32-36); MEAN CORPUSCULAR VOLUME 89 fL (80-99); MEAN PLATELET VOLUME 10.3 fL (9.0-12.2); PLATELET COUNT 247 10^3/uL (130-400); WHITE BLOOD COUNT 8.3 10^3/uL (4.3-11.0)
[2022-07-19 08:10] LABS: ALBUMIN 3.8 GM/DL (3.2-4.5); POTASSIUM 4.2 MMOL/L (3.6-5.0)
[2022-07-19 08:11] LABS: CALCIUM 9.4 MG/DL (8.5-10.1)
[2022-07-19 08:14] LABS: BILIRUBIN,TOTAL 0.4 MG/DL (0.1-1.0)
[2022-07-19 08:16] LABS: CREATININE SERUM 1.19 MG/DL (0.60-1.30)
--- NOTE | 2022-07-19 09:22 | Pre-Op Note & Conscious Sedat ---
Pre-Operative Progress Note Date of Available H&P: Jul 15, 2022 Date H&P Reviewed: Jul 19, 2022 Time H&P Reviewed: 09:16 History & Physical: H&P Reviewed, Patient Examed, No changes noted Pre-Op Diagnosis: PAFL Conscious Sedation Pre-Proced Time 09:17 ASA Score 3 For ASA 3 and 4: Consider anesthesia and medical clearance. Also, for patients with a history of failed moderate sedation consider anesthesia. Airway Lungs Heart ASA score ASA 1: a normal healthy patient ASA 2: a patient with a mild systemic disease (mid diabetes, controlled hypertension, obesity ASA 3: a patient with a severe systemic disease that limits activity (angina, COPD, prior Myocardial infarction) ASA 4: a patient with an incapacitating disease that is a constant threat to life (CHF, renal failure) ASA 5: a moribund patient not expected to survive 24 hrs. (ruptured aneurysm) ASA 6: a declared brain- patient whose organs are being harvested. For emergent operations, add the letter E after the classification Mallampati Classification Grade 3 Sedation Plan Analgesia, Amnesia, Plan communicated to team members, Discussed options with patient/fam, Discussed risks with patient/fam The patient is an appropriate candidate to undergo the planned procedure, sedation, and anesthesia. The patient immediately re-assessed prior to indication. ISABELLA SHELL MD Jul 19, 2022 09:22
[~2022-07-19 09:30] MED LIST changes: -CATHETER FLUSH 10 ML SYR IV ONE; +CYAN50003 PO; +HEParin (CATH LAB) 2,000 ML IV ONE; +LIDOCAINE 1% INJ 30 ML (XYLOCAINE) VIAL ONE; -LIDOCAINE 2% VISCOUS 15 ML UDC ONE; -LIDOCAINE 2% VISCOUS 15 ML UDC PO ONE; +MIDAZOLAM 5 MG/5 ML (VERSED) VIAL ONE; -NS IV 1000 ML 1,000 ML IV ONE; +fentaNYL INJ 100 MCG/2 ML AMP ONE; -proPOfol 200 MG/20 ML (DIPRIVAN) VIAL IV ONE
--- NOTE | 2022-07-19 10:03 | Discharge Inst-Cardiology ---
Cardiology Discharge Inst. You should resume your normal activity in [address] after 2 days. No lifting greater than 10 pounds for 1 week. No sexual activity of strenuous activity for 1 week. You may shower now, however no baths for 1 week. Call if any swelling, redness or bleeding from groin site. No soaking in bath tub for [address] Ortiz in one month ISABELLA SHELL MD Jul 19, 2022 10:03
[2022-07-19] MEDS ORDERED: fentaNYL INJ 100 MCG/2 ML AMP ONE (10:41)
[2022-07-19] MEDS ORDERED: MIDAZOLAM 5 MG/5 ML (VERSED) VIAL ONE (10:41)
--- NOTE | 2022-07-19 12:07 | Electrophysiology Procedure ---
Electrophysiology Procedure-[facility] PROCEDURES: Cavo-tricuspid isthmus ablation (Typical Atrial Flutter Ablation) --IN NSR at time of study EP Study with CS catheter placement and pacing Intra-atrial pacing and interventricular pacing Moderate Sedation Anesthesia Right heart catheterization LA pacing/recording Three-dimensional intracardiac electroanatomic mapping CARTO Ultrasound Guided Access of the femoral vein X] BRIEF SUMMARY: This is a pleasant 72 male who presented to the electrophysiology laboratory for the purpose of EP study and ablation of suspected typical atrial flutter. Of note based off surface EKG it appeared that his arrhythmia was consistent with a cavotricuspid isthmus dependent flutter that was counterclockwise in atrial activation. After obtaining informed consent the patient was taken to the electrophysiology laboratory and draped and prepared in a sterile manner. Vascular access was obtained with ultrasound guidance. We used the Carto mapping system. We performed a 3 catheter set up with a CS catheter, toi catheter and the mapping/ablation catheter. The patient had presented in the NSR. Baseline measurements in sinus rhythm were obtained through the isthmus. We then procee ded with RF ablation create a line of bidirectional block starting at 0600 o'clock and dragging back. We did block occurred but it was transient. We then did additional ablation along the lateral edge of the line and had bidirectional block reestablished and persist. Repeat testing after 20 minutes of monitoring showed consistent bidirectional conduction block through the isthmus. We confirmed there was evidence of bidirectional block across the cavotricuspid isthmus with values as mentioned below. We then marked the conclusion of our procedure. Baseline: MAP 4-LLRA: 37 MS MAP 6-LLRA: 44 MS MAP 06PCS: 37 MS MAP 8-LLRA: 56 MS PCS-LLRA: 76 MS LLRA-PCS: 76 MS PCS - Map 07: 63 ms PCSMAP 06: 39 MS LLRAMAP 06: 41 MS LLR 80MAP 05 equal 53 MS Post-ablation: MAP 5-LLRA: 157 PCS-LLRA: 146 LLRA-PCS: 141 PCS-MAP 7: 168 MAP 7-PCS: 157 PCS-MAP 6:30 :184 MAP 6:30-PCS: 196 ATTENDING: Kan Daniel MD EP FELLOW: Jamari Singh MD INDICATION FOR PROCEDURE: Patient is a [] with a history of atrial flutter that presents for ablation of clockwise Cavotricuspid isthmus Atrial Flutter via ECG. MICHAEL was not performed prior to the procedure as the patient was compliant with home anticoagulation. CONSENT: The risks, benefits and alternative to the procedure has been described to the patient in detail. All questions were answered. The patient expressed understanding and has agreed to proceed. PRESENTING RHYTHM: Typical Atrial Flutter. SETUP AND ACCESS: The patient was brought to the EP lab in a fasting state after informed and written consent was obtained. Cardiac rhythm, blood pressure, heart rate, respirations, oxygen saturation and level of consciousness were monitored prior to, throughout and after the procedure. Moderate sedation was administered by trained staff members. The patient was placed supine on the fluoroscopy table, prepped and draped in the usual sterile fashion. Local anesthetic was provided. Venous access was obtained using a micropuncture needle in the right femoral vein under fluoroscopic/anatomic and ultrasound guidance using the modified Seldinger technique. Ultrasound was utilized to confirm femoral venous patency. Needle access was obtained under ultrasound guidance and a permanent recording obtained. Guidewires were placed though venous access and an 8.5 Somali SR-0 sheaths and 6/7 Somali sheaths were placed in the right femoral vein. As the patient was on therapeutic anticoagulation no further hepa rin was provided. CATHETER PLACEMENT: A Movie Mouthability D-F catheter was advanced through the SR-0. A CS catheter was advanced via the right femoral vein into the CS and toi catheter advanced via RFV. EP STUDY AND ABLATION: The ablation catheter was placed at the His position for baseline intervals and to sergey the location on 3-D mapping. The ablation catheter was placed at 6 oclock on the tricuspid valve annulus. RF ablation was the applied in a linear fashion across the cavotricuspid isthmus using a spot and drag technique at maximum power of 35 Antonio at the distal isthmus and 30 W at the proximal isthmus and points were tagged on a 3D map. The atrial flutter slowed then terminated cleanly. Further ablation was performed. Bidirectional clock was achieved without complication. The post-ablation trans-isthmus conduction time was over >140 ms. A repeat EP study was performed, including pacing and recording from the left atrium. Sheaths: 8.5 Somali SRO sheath placed via the right femoral vein advanced to the RA used for mapping and ablation catheter 7 Somali sheath via the right femoral vein utilized for the Toi 20 pole deflectable catheter 7 Somali sheath via the right femoral vein utilized for the CS decapolar deflectable catheter FLUOROSCOPY TIME: Not required. EXTERNAL DC CARDIOVERSION: Not required DRUG INFUSION: Isoproterenol was not performed. Adenosine was not administered. SEDATION: I was personally responsible for the administration of moderate sedation services during the procedure performed and I confirmed requirements described in CPT section on moderate sedation were followed, including the use of an independent trained observer who had no other duties during the procedure. After providing fentanyl and midazolam, we achieved moderate conscious sedation, which was maintained throughout the procedure. The hemodynamic parameters, respiratory parameters, as well as neurological status was monitored throughout the procedure by the cardiac cath tech staff and myself. The total [id number] time was [ ]. DIAGNOSTIC EP STUDY: Baseline: Sinus bradycardia at a rate of 37 bpm with sedation the Seglie to 1625 MS, UT interval 140 MS, QRS duration 73 MS, QT interval 431 MS, no bundle branch block at baseline. Baseline CTI trans-isthmus conduction time: 76 ms Final Intervals: AH interval 76 msec, HV internal 54 msec. AV Wenkebach: 430 msec Post-ablation CTI trans-isthmus conduction time: 168 ms IMPRESSION: Successful CTI-dependent Atrial Flutter ablation (suspected Counterclockwise typical atrial flutter) Intra-atrial pacing PLAN: Pain control as needed Remove sheaths in recover once ACT <250 Bedrest 6 hours after sheath removal Anti-arrhythmic drug: None Anticoagulation: Resume Xarelto 20 mg daily as soon as 4 hours after sheath removal if hemostasis present and no hematoma Follow-up: with DANIELLA in one month and issue Event monitor at that time ([employer]) and Dr. Ortiz in 3 months Anticipate discharge home today. KAN DANIEL MD Jul 19, 2022 12:07
[2022-07-19] MEDS ORDERED: NS IV 1000 ML 1,000 ML IV SCH (12:30)
[2022-07-19] MEDS ORDERED: PATIENT MAY USE OWN MEDS, ALL PO SCH (12:30)
[2022-07-19] MEDS ORDERED: RIVAROXABAN 20 MG TABLET (XARELTO) PO SCH (17:00)
== END 2022-07-19 17:09 | disposition home or self-care (01) ==
LOC: CATH 09:30 → CSD 12:20 → CATH 17:09
PROVIDERS: ATTEND Internal Medicine Cardiovascular Disease
DX: I48.92 Unspecified atrial flutter (principal); E66.9 Obesity, unspecified; I10 Essential (primary) hypertension; E78.5 Hyperlipidemia, unspecified; I25.10 Atherosclerotic heart disease of native coronary artery without angina pectoris; E11.51 Type 2 diabetes mellitus with diabetic peripheral angiopathy without gangrene; I65.23 Occlusion and stenosis of bilateral carotid arteries; I49.5 Sick sinus syndrome; C61 Malignant neoplasm of prostate; K21.9 Gastro-esophageal reflux disease without esophagitis; I25.2 Old myocardial infarction; I49.3 Ventricular premature depolarization; I45.89 Other specified conduction disorders; Z87.891 Personal history of nicotine dependence; Z79.899 Other long term (current) drug therapy; Z79.82 Long term (current) use of aspirin; Z79.01 Long term (current) use of anticoagulants; Z95.5 Presence of coronary angioplasty implant and graft; Z68.31 Body mass index [BMI] 31.0-31.9, adult; Z79.02 Long term (current) use of antithrombotics/antiplatelets; Z79.84 Long term (current) use of oral hypoglycemic drugs
CPT/HCPCS: 80053; 85027; 85610; 85730; 87081; 93653; C1894 ×2; 36415

== ENCOUNTER → 2023-01-06 | Outpatient (CLI) | payer MEDICARE, OTHER ==
[~2023-01-06] MED LIST changes: +CLOP-31 PO; -CLOP75TA69 PO; -HEParin (CATH LAB) 2,000 ML IV ONE; -LIDOCAINE 1% INJ 30 ML (XYLOCAINE) VIAL ONE; -MIDAZOLAM 5 MG/5 ML (VERSED) VIAL ONE; -NS IV 1000 ML 1,000 ML ONE; -fentaNYL INJ 100 MCG/2 ML AMP ONE
== END ==
LOC: CARD 09:51
PROVIDERS: ATTEND Internal Medicine Cardiovascular Disease
DX: I11.9 Hypertensive heart disease without heart failure (principal); I34.0 Nonrheumatic mitral (valve) insufficiency
CPT/HCPCS: 93306

== ENCOUNTER → 2023-01-29 | Outpatient (CLI) | payer MEDICARE, OTHER ==
[~2023-01-29] MED LIST changes: +CATHETER FLUSH 10 ML SYR IVP PRN; +REGADENOSON 0.4 MG/5 ML SYR (LEXISCAN) IV ONE
[2023-01-29 15:34] VITALS: BP 152/72
--- NOTE | 2023-01-29 15:34 | Cardiology Stress Test Report ---
Stress Test Report Date of Procedure/Referring: Date of Procedure: January 29, 2023 PCP Meka Woods MD Admitting Physician Admitting Physician: Attending Physician: Marisela Stewart Baseline Heart Rate: 81 Baseline Blood Pressure: Blood Pressure Systolic: 152 Blood Pressure Diastolic: 72 Baseline EKG: Baseline EKG: NSR Summary After explaining the procedure to the patient, he signed a consent and then brought to the stress nuclear laboratory. Patient received 0.4 mg Lexiscan for stress test, ECG, heart rate and blood pressure were monitored continuously. Resting and stress dose of radio tracer were injected, imaging was acquired and reviewed in short axis, horizontal long axis and vertical long axis views. TID: 1.11 SSS: 4 SDS: 0 EF: 77 Patient tolerated Lexiscan well Baseline EKG showed sinus rhythm with atrial bigeminy Diaphragmatic attenuation with fixed defect involving the basal to mid inferior wall, no ischemia or infarction noted on SPECT images Normal left ventricular size, ejection fraction 77% Copy Copies To 1: MEKA WOODS MD, BASHAR J MD January 29, 2023 15:34
== END ==
LOC: CARD 07:30
PROVIDERS: ATTEND Physician Assistant
DX: I10 Essential (primary) hypertension (principal); I25.10 Atherosclerotic heart disease of native coronary artery without angina pectoris
CPT/HCPCS: 78452; A9502